=== PATIENT | female | born 1950 | race Caucasian/White ===

== ENCOUNTER 2020-10-05 18:05 | Outpatient (REF) | payer MEDICARE, OTHER, SELFPAY | END 2020-10-05 18:06 | disposition home or self-care (01) | LOC: HO.LNP 18:05 | PROVIDERS: Visit Provider Family Medicine | DX: R30.0 Dysuria (principal) | CPT/HCPCS: 87086 ==

== ENCOUNTER 2021-01-16 12:56 | Outpatient (REF) | payer MEDICARE, OTHER, SELFPAY ==
--- NOTE | ~2021-01-16 | MM_ITS ---
EXAMINATION: MM SCREENING DIGITAL BREAST TOMOSYNTHESIS, BILATERAL CLINICAL INFORMATION: Screening. Asymptomatic. Left nipple inversion most of life. The lifetime risk of breast cancer based on the Tyrer-Cuzick Model is 9%. COMPARISON: Mammography: 01/15/2019, 01/02/2018, 12/10/2016 TECHNIQUE: Digital breast tomosynthesis is performed in both the craniocaudal and mediolateral oblique views along with computer-aided detection (CAD). Synthesized 2D images are generated from the tomosynthesis. Additional right MLO view is provided. FINDINGS: There are scattered areas of fibroglandular density (ACR BI-RADS breast composition Category b). There are no significant masses, abnormal calcifications, or other abnormalities. Small stable nodular density again seen mid medial left breast on CC view. No developing density. No significant changes from prior exams. MM/MM tomosynthesis screening BI IMPRESSION: No mammographic evidence of malignancy. ASSESSMENT: BI-RADS 2: Benign RECOMMENDATION: Routine annual mammography screening. This patient's information was entered into a reminder system with a target due date for their next mammogram.
== END 2021-01-16 12:57 | disposition home or self-care (01) ==
LOC: HO.MAMMO 12:56
PROVIDERS: PCP Internal Medicine; Visit Provider Internal Medicine
DX: Z12.31 Encounter for screening mammogram for malignant neoplasm of breast (principal)
CPT/HCPCS: 77063; 77067

== ENCOUNTER 2021-11-02 07:09 | Outpatient (REF) | payer MEDICARE, OTHER, SELFPAY ==
[2021-11-02 07:24] LABS: MANUAL DIFF FLAG NO
[2021-11-02 08:33] LABS: Basophils Absolute Auto 0.1 X10*3/uL (0.0-0.2); Basophils Percent Auto 0.7 % (0-2); Eosinophils Absolute Auto 0.2 X10*3/uL (0.0-0.4); Eosinophils Percent Auto 2.9 % (0-4); Hematocrit 46.3 % (37.0-47.0); Hemoglobin 15.3 g/dl (12.0-16.0); Imm Gran Abs Auto 0.02 X10*3/uL (0.00-0.03); Imm Gran Pct Auto 0.3 % (0.0-0.4); Lymphocytes Absolute Auto 2.3 X10*3/uL (1.2-4.9); Lymphocytes Percent Auto 32.2 % (20-40); Mean Corpuscular Hemoglobin 27.8 pg (27.0-33.0); Mean Corpuscular Volume 84.2 fL (80.0-98.0); Mean Platelet Volume 9.2 fL (9.4-12.3); Monocytes Absolute Auto 0.6 X10*3/uL (0.1-1.2); Monocytes Percent Auto 8.7 % (2-11); Neutrophils Absolute Auto 3.9 x10*3/uL (2.0-8.3); Neutrophils Percent Auto 55.2 % (45-73); Platelet Count 253 X10*3/uL (160-400); Red Cell Distribution Width 12.8 % (11.0-16.0)
[2021-11-02 08:38] LABS: Estimated Average Glucose 128 mg/dL; Hemoglobin A1c % 6.1 %
[2021-11-02 08:51] LABS: Alanine Aminotransferase 29 U/L (0-31); Albumin Level 4.6 g/dL (3.5-5.0); Alkaline Phosphatase 75 U/L (39-117); Anion Gap 15 (12-20); Aspartate Amino Transferase 23 U/L (5-31); Bilirubin Total 0.6 mg/dL (0.0-1.0); Blood Urea Nitrogen 29 mg/dL (9-16); Calcium 10.1 mg/dL (8.4-10.2); Carbon Dioxide 26 mmol/L (22-29); Chloride 101 mmol/L (96-108); Cholesterol 164 mg/dL; Creatinine Urine 118.42 mg/dL; Estimated Glomerular Filt Rate 51; Glucose Random 100 mg/dL (60-115); HDL Cholesterol 48 mg/dL; LDL Cholesterol Calculated 84 mg/dl; Microalbum/Creatinine Ratio Ur 12.6 ug/mg cr; Potassium 4.1 mmol/L (3.3-5.1); Sodium 138 mmol/L (135-145); Total Protein 7.4 g/dL (6.5-8.0); Triglycerides 162 mg/dL
[2021-11-02 09:14] LABS: Free T4 (Free Thyroxine) 1.03 ng/dL (0.71-1.85); Thyroid Stimulating Hormone 1.94 uIU/mL (0.32-4.0); Vitamin D 25-OH Total 43.1 ng/mL (>30)
[2021-11-02 09:25] LABS: Folate 17.3 ng/mL (> or = 4.0); Vitamin B12 866 pg/mL (200-900)
== END 2021-11-02 07:10 | disposition home or self-care (01) ==
LOC: HO.LAB 07:09
PROVIDERS: PCP Internal Medicine; Visit Provider Internal Medicine
DX: E11.65 Type 2 diabetes mellitus with hyperglycemia (principal); E78.00 Pure hypercholesterolemia, unspecified; I10 Essential (primary) hypertension
CPT/HCPCS: 36415; 80053; 80061; 82043; 82306; 82607; 82746; 83036; 84439; 84443; 85025

== ENCOUNTER 2021-11-15 08:47 | Outpatient (REF) | payer MEDICARE, OTHER, SELFPAY ==
--- NOTE | ~2021-11-15 | MM_ITS ---
EXAMINATION: BONE DENSITOMETRY CLINICAL INDICATION: Other specified disorders of bone density and structure. COMPARISON: Previous BD dated 10/31/2017 and baseline BD dated 04/01/2007. TECHNIQUE: Using a [employer] DXA System (software version: 13.1) manufactured by [employer], dual-energy x-ray absorptiometry was performed of the lumbar spine and left hip. The images are of good technical quality. Summary results are attached. FINDINGS: AP SPINE L1-L4: Current: BMD 1.044 g/cm2, Z-score 0.3, T-score -1.1, osteopenia, 3.3% decrease from previous, 5.8% decrease from baseline (<5% change is not significant). Prior: BMD 1.080 g/cm2. Baseline: BMD 1.108 g/cm2. LEFT FEMUR, NECK: Current: BMD 0.694 g/cm2, Z-score -1.0, T-score -2.5, osteoporosis. Prior: BMD 0.773 g/cm2. Baseline: BMD 0.764 g/cm2. LEFT FEMUR, TOTAL: Current: BMD 0.952 g/cm2, Z-score 0.8, T-score -0.4, normal, 2.3% decrease from previous, 11.3% decrease from baseline (<5% change is not significant). Prior: BMD 0.974 g/cm2. Baseline: BMD 1.073 g/cm2. IDENTIFIED RISK FACTORS: Menopause. HISTORY OF FRACTURE: None listed. MEDICATIONS: Calcium, vitamin D. MM/XR DEXA axial skeleton IMPRESSION: 1. DIAGNOSIS: Osteoporosis based on the lowest T-score value of -2.5 in the femoral neck applying World Health Organization criteria. 2. 10-YEAR FRACTURE RISK PREDICTION, FRAX: According to the guidelines, FRAX calculation should only be performed on patients in the osteopenia bone density category. 3. Treatment Recommendations: NOF guidelines recommend consideration for treatment in postmenopausal women and men age 50 and older presenting with the following: -A hip or vertebral (clinical or morphometric) fracture. -T-score less than or equal to -2.5 at the femoral neck or spine after appropriate evaluation to exclude secondary causes. -Low bone mass at the hip or spine and a 10-year fracture probability by FRAX of greater than or equal to 3% for hip fracture or greater than or equal to 20% for major osteoporotic fracture based on the [place] adapted WHO algorithm. 4. Other Recommendations: All treatment decisions require clinical judgment and consideration of individual patient factors, including patient preferences, comorbidities, previous drug use, risk factors not captured in the FRAX model (e.g. frailty, falls, vitamin D deficiency, increased bone turnover, interval significant decline in bone density) and possible under or overestimation of fracture risk by FRAX. Additional medical evaluation for secondary cause of low bone mineral density may be appropriate. FUTURE SCAN RECOMMENDATION: People with diagnosed cases of osteoporosis or at high risk for fracture should have regular bone mineral density tests. For patients eligible for Medicare, routine testing is allowed once every 2 years. The testing frequency can be increased to one year for patients who have rapidly progressing disease, those who are receiving or discontinuing medical therapy to restore bone mass, or have additional risk factors.
== END 2021-11-15 08:48 | disposition home or self-care (01) ==
LOC: HO.MAMMO 08:47
PROVIDERS: Visit Provider Internal Medicine
DX: Z13.820 Encounter for screening for osteoporosis (principal); M85.80 Other specified disorders of bone density and structure, unspecified site; M81.0 Age-related osteoporosis without current pathological fracture; Z78.0 Asymptomatic menopausal state; Z79.899 Other long term (current) drug therapy
CPT/HCPCS: 77080

== ENCOUNTER 2022-02-05 13:30 | Outpatient (REF) | payer MEDICARE, OTHER, SELFPAY ==
--- NOTE | ~2022-02-05 | MM_ITS ---
EXAMINATION: MM SCREENING DIGITAL BREAST TOMOSYNTHESIS, BILATERAL CLINICAL INFORMATION: Screening. Asymptomatic. The lifetime risk of breast cancer based on the Tyrer-Cuzick Model is 4%. COMPARISON: Mammography: 09/15/2021, 01/15/2019, 01/02/2018 TECHNIQUE: Digital breast tomosynthesis is performed in both the craniocaudal and mediolateral oblique views along with computer-aided detection (CAD). Synthesized 2D images are generated from the tomosynthesis. Additional right CC view is provided. FINDINGS: There are scattered areas of fibroglandular density (ACR BI-RADS breast composition Category b). Background stromal and fibroglandular densities are stable. No developing density or architectural abnormality. There are no significant masses, abnormal calcifications, or other abnormalities. The axilla and skin contours are unremarkable. MM/MM tomosynthesis screening BI IMPRESSION: No mammographic evidence of malignancy. ASSESSMENT: BI-RADS 1: Negative RECOMMENDATION: Routine annual mammography screening. This patient's information was entered into a reminder system with a target due date for their next mammogram.
== END 2022-02-05 13:31 | disposition home or self-care (01) ==
LOC: HO.MAMMO 13:30
PROVIDERS: PCP Internal Medicine; Visit Provider Internal Medicine
DX: Z12.31 Encounter for screening mammogram for malignant neoplasm of breast (principal)
CPT/HCPCS: 77063; 77067

== ENCOUNTER 2022-04-04 10:12 | Emergency (ER) | payer MEDICARE, OTHER, SELFPAY ==
--- NOTE | 2022-04-04 | ECG_ITS ---
Test Reason : rhythm change Blood Pressure : / mmHG Vent. Rate : 093 BPM Atrial Rate : 093 BPM P-R Int : 134 ms QRS Dur : 074 ms QT Int : 338 ms P-R-T Axes : 055 -05 033 degrees QTc Int : 420 ms Normal sinus rhythm Inferior infarct (cited on or before 20-OCT-2015) Cannot rule out Anterior infarct (cited on or before 20-OCT-2015) Abnormal ECG When compared with ECG of 04-APR-2022 11:24, Vent. rate has decreased BY [address] no longer depressed in Lateral leads Nonspecific T wave abnormality, improved in Inferior leads Nonspecific T wave abnormality no longer evident in Anterolateral leads Referred By: Josey Benz Electronically Signed By:Josh Campos
--- NOTE | ~2022-04-04 | XR_ITS ---
EXAMINATION: XR KNEE, RIGHT CLINICAL INFORMATION: Right knee pain and swelling. COMPARISON: None TECHNIQUE: Four views of the right knee. FINDINGS: The patient is status post right knee arthroplasty showing good anatomic alignment with no evidence for hardware malfunction. There is no acute fracture. There is a trace suprapatellar joint effusion. The soft tissues are unremarkable. XR/XR knee RT 4V IMPRESSION: 1. No hardware abnormality. No acute fracture. 2. Trace suprapatellar joint effusion.
--- NOTE | ~2022-04-04 | XR_ITS ---
EXAMINATION: XR CHEST CLINICAL INFORMATION: Lower O2 sats. COMPARISON: 08/05/2018 rib and chest radiographs. TECHNIQUE: Frontal view of the chest was obtained. FINDINGS: No significant abnormality is noted involving the heart, lungs, mediastinum, bony thorax or soft tissues. XR/XR chest 1V IMPRESSION: No acute cardiopulmonary process.
--- NOTE | ~2022-04-04 | US_ITS ---
EXAMINATION: RIGHT LOWER EXTREMITY DEEP VENOUS ULTRASOUND CLINICAL INFORMATION: Right lower extremity pain and swelling. COMPARISON: None. TECHNIQUE: Duplex Doppler imaging with compression maneuvers were performed of the right lower extremity deep venous system. FINDINGS: The visualized common femoral, femoral and popliteal veins demonstrate normal compressibility and color flow without evidence of venous thrombosis. Visualized portions of the calf veins demonstrate normal color fill-in suggesting patency. There is no evidence of a Dawson's cyst although a small knee effusion is suspected. US/US venous duplex LE RT IMPRESSION: No evidence of deep venous thrombosis involving the right lower extremity.
[2022-04-04 10:23] VITALS: BP 142/74; BP 155/84; PULSE 143; PULSE 145; RESP 16; TEMP 36.7; O2SAT 97; O2SAT 98; BMI 30.7
--- NOTE | 2022-04-04 10:32 | ED_ITS ---
HPI - Extremity Injury (Lower) General Chief Complaint: Extremity Injury, Lower Stated Complaint: R KNEE PAIN S/P [facility] FALL Time Seen by Provider: 04/04/22 10:32 Source: patient Mode of arrival: EMS Limitations: no limitations History of Present Illness complaint: knee injury Onset (ago): day(s) (this AM ) Injury: Right: knee Type of Injury: other (overuse yesterday up and down a ladder, hit peralta on stairs yesterday no pain but woke up with pain in middle of night fell again this AM) Place: home and street/outdoors Severity: severe Relieving factors: immobilization Exacerbating factors: movement and palpation Context: direct blow and other (overuse up and down stairs) Associated symptoms: swelling Other symptoms: none Related Data Home Medications Medication Instructions Recorded Confirmed blood sugar diagnostic #10 ea 10/05/20 02/12/22 aspirin 81 mg tablet,delayed 81 mg PO DAILY 10/10/20 02/12/22 release (Adult Aspirin Regimen) Previous Rx's Medication Instructions Recorded simvastatin 20 mg tablet 20 mg PO BEDTIME 90 Days #90 tab 04/07/21 amlodipine 5 mg tablet 5 mg PO DAILY 90 Days #90 tab 07/28/21 hydrochlorothiazide 25 mg tablet 25 mg PO DAILY 90 Days #90 tab 07/28/21 glimepiride 4 mg tablet 4 mg PO DAILY 90 Days #90 tab 08/18/21 omeprazole 20 mg capsule,delayed 20 mg PO DAILY #90 cap 09/26/21 release blood sugar diagnostic (FreeStyle #200 ea 10/13/21 Lite Strips) metformin 500 mg tablet 1,000 mg PO BID 90 Days #360 tab 10/30/21 amoxicillin 875 mg tablet 875 mg PO Q12H 7 Days #14 tab 11/13/21 ramipril 10 mg capsule 10 mg PO DAILY #90 cap 02/28/22 dulaglutide 0.75 mg/0.5 mL 0.75 mg (0.5 mL) SUBCUT QWEEK 90 03/12/22 subcutaneous pen injector Days #13 syringe empagliflozin 10 mg tablet 10 mg PO DAILY #90 tab 03/16/22 (Jardiance) meloxicam 15 mg tablet 15 mg PO DAILY #90 tab 03/16/22 Allergies Allergy/AdvReac Type Severity Reaction Status Date / Time penicillin V Allergy Unknown Pt was Verified 02/12/22 13:41 told she was allergic as a child. Review of Systems Review of Systems: Constitutional : No Fever, No Chills ENT/Mouth : No Ear Pain, No Hoarseness, No sore throat Eyes: No Eye Pain, No Swelling, No Redness, No Foreign Body Cardiovascular : No Chest Pain, No SOB Respiratory : No Cough, No Dyspnea Gastrointestinal : No Nausea, No Vomiting, No Diarrhea, No abdominal Pain Genitourinary : No Dysuria, No Hematuria Musculoskeletal : positive joint pain, No Myalgias, pos Joint Swelling Skin : No Skin lacerations, No rash Neuro : No Weakness, No Numbness, No Loss of Consciousness, No Dizziness, No Headache Psych : No Anxiety/Panic, No Depression Heme/Lymph: no easy bruising, no Lymphadenopathy Endocrine : No Polyuria, No Polydipsia All other systems reviewed and are negative [facility] Past Medical History Attestation statement: The following information was validated with the patient. Medical History Diverticulitis Fatty liver GERD (gastroesophageal reflux disease) Hypercholesterolemia Hypertension Insomnia Obesity (BMI 30-39.9) Osteoarthritis, knee Pulmonary nodule Type 2 diabetes mellitus with hyperglycemia Vitamin D deficiency Surgical History History of section History of knee replacement procedure of right knee Family History Family History (Updated 10/07/20 @ 09:24 by Doretha Arroyo [facility]) Father Hypertension Mother Ovarian cancer Sister Breast cancer Social History Social History Housing: Apartment Alcohol intake: never Patient Tobacco Use Status: Never used Tobacco e-Cigarette/Vaping Use: Never Used Second Hand Smoke Exposure: No Use of substances other than those prescribed or required for medical reasons: No Advance Directives: No Advance Directives Information Provided: No Current occupational status: retired Physical Exam Vital Signs: Vital Signs: Last Vital Signs Temp 98.9 F 04/04/22 12:20 Pulse 113 H 04/04/22 14:00 Resp 18 04/04/22 14:00 BP 106/65 04/04/22 14:00 Pulse Ox 94 04/04/22 14:00 BMI result Body Mass Index 30.7 Appearance: Alert. Oriented X3. No acute distress. Eyes: Pupils equal, round and reactive to light. ENT: Pharynx normal. Neck: Normal inspection. Neck supple. CVS: tachycardicl heart rate and rhythm. Pulses normal. Respiratory: No respiratory distress. Breath sounds normal. Abdomen: Soft and nontender. Skin: Skin warm and dry. Normal skin color. Normal skin turgor. Extremities: No lower extremity edema. R knee moderate effusion ttp along joint line distal NV intact no erythema no warmth Neuro: Oriented X 3. No motor deficit. No sensory deficit. Course Course Course Narrative: HR elevated will obtain labs, EKG, hydrate not on bblockers at baseline, cannot feel the HR no CP/SOB tachycardia 2.5 lopressor ordered IV meds HR down to 97 PO metoprolol ordered HR back up to 120s has WBC count but neg lactic, neg procalcitonin - knee not consistent with sept ic joint not red not hot UA ordered HR down small effusion no source of infection at this time, no fevers, neg lactic acid no signs of septic joint recheck of knee it is not red hot or warm to the touch discussed with orthopedics can see in office in the AM - [place], hold antibiotics can start a dose of prednisone patient does not have ride to the office will keep in ED overnight for obs Patient placed in physician observation at 324pm. The indication for observation is that the patient needs more time to see if their knee pain improves or they will need to be admitted. At this time the patient is well developed well nourished, lungs clear, CV tachy but lower than arrival, abd nontender, neuro is intact. 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 She went home and hit her R peralta on the stairs but had no pain at that time and did hit knee as well. She woke up in the middle of the night with intense pain in R knee. She fell again this morning due to left leg giving out - no head or neck injury. She has moderate effusion of the knee - suspect overuse and swelling. Xrays, PO pain control, francine wrap ordered. Dispo per results and findings. Lab Data Result diagrams: 04/04/22 11:37 04/04/22 11:37 Labs: Lab Results 04/04/22 04/04/22 04/04/22 Range/Units 11:37 11:37 11:37 WBC 14.4 H (4.8-10.8) X10*3/uL RBC 5.15 (4.20-5.50) X10*6/uL Hgb 14.5 (12.0-16.0) g/dl Hct 43.6 (37.0-47.0) % MCV 84.7 (80.0-98.0) fL MCH 28.2 (27.0-33.0) pg MCHC 33.3 (31.0-35.0) g/dl RDW 13.1 (11.0-16.0) % Plt Count 205 (160-400) X10*3/uL MPV 9.0 L (9.4-12.3) fL Immature Gran % (Auto) 0.4 (0.0-0.4) % Neut % (Auto) 89.1 H (45-73) % Lymph % (Auto) 5.2 L (20-40) % Emmet % (Auto) 5.0 (2-11) % Eos % (Auto) 0.1 (0-4) % Baso % (Auto) 0.2 (0-2) % Lymph # (Auto) 0.8 L (1.2-4.9) X10*3/uL Emm[place] # (Auto) 0.7 (0.1-1.2) X10*3/uL Eos # (Auto) 0.0 (0.0-0.4) X10*3/uL Baso # (Auto) 0.0 (0.0-0.2) X10*3/uL Abs Immat Gran (auto) 0.06 H (0.00-0.03) X10*3/uL Absolute Neuts (auto) 12.8 H (2.0-8.3) x10*3/uL Absolute Nucleated RBC 0.000 (0.0-0.012) X10*3/uL Nucleated RBC % (auto) 0.0 (0.0-0.2) /100WBC D-Dimer High Sensitivty < 150 NG/ML Sodium 138 (135-145) mmol/L Potassium 3.9 (3.3-5.1) mmol/L Chloride 103 (96-108) mmol/L Carbon Dioxide 23 (22-29) mmol/L Anion Gap 16 (12-20) BUN 16 (9-16) mg/dL Creatinine 0.84 (0.5-1.4) mg/dL Estim Creat Clear Calc 55.6 Estimated GFR > 60 Random Glucose 183 H (60-115) mg/dL Lactic Acid (0.5-2.0) mmol/L Calcium 9.2 D (8.4-10.2) mg/dL Magnesium 1.7 (1.6-2.6) mg/dL Total Bilirubin 0.9 (0.0-1.0) mg/dL Direct Bilirubin 0.3 (0.0-0.5) mg/dL AST 18 (5-31) U/L ALT 21 (0-31) U/L Alkaline Phosphatase 67 (39-117) U/L Troponin I High Sens (<3.5-17.0) ng/L B-Natriuretic Peptide Total Protein 6.9 (6.5-8.0) g/dL Albumin 4.2 (3.5-5.0) g/dL Lipase 41 (8-78) U/L Procalcitonin ng/mL TSH 0.42 (0.32-4.0) uIU/mL Urine Color Urine Appearance Urine pH (5.0-8.0) Ur Specific [place] (1.005-1.025) Urine Protein (NEG-TRACE) MG/DL Urine Glucose (UA) (NEG) MG/DL Urine Ketones (NEG) MG/DL Urine Blood (NEG) Urine Nitrite (NEG) Ur Leukocyte Esterase (NEG) Urine RBC (0) /HPF Urine WBC (0-4) /HPF Ur Squamous Epith Cells /LPF Ur Renal Epithelial Cell /LPF Urine Bacteria /LPF Ur Oval Fat Bodies (NONE) COVID-19 (RON) (Negative) COVID-19 Clin Com 04/04/22 04/04/22 04/04/22 Range/Units 11:37 11:37 11:37 WBC (4.8-10.8) X10*3/uL RBC (4.20-5.50) X10*6/uL Hgb (12.0-16.0) g/dl Hct (37.0-47.0) % MCV (80.0-98.0) fL MCH (27.0-33.0) pg MCHC (31.0-35.0) g/dl RDW (11.0-16.0) % Plt Count (160-400) X10*3/uL MPV (9.4-12.3) fL Immature Gran % (Auto) (0.0-0.4) % Neut % (Auto) (45-73) % Lymph % (Auto) (20-40) % Emmet % (Auto) (2-11) % Eos % (Auto) (0-4) % Baso % (Auto) (0-2) % Lymph # (Auto) (1.2-4.9) X10*3/uL [place] # (Auto) (0.1-1.2) X10*3/uL Eos # (Auto) (0.0-0.4) X10*3/uL Baso # (Auto) (0.0-0.2) X10*3/uL Abs Immat Gran (auto) (0.00-0.03) X10*3/uL Absolute Neuts (auto) (2.0-8.3) x10*3/uL Absolute Nucleated RBC (0.0-0.012) X10*3/uL Nucleated RBC % (auto) (0.0-0.2) /100WBC D-Dimer High Sensitivty NG/ML Sodium (135-145) mmol/L Potassium (3.3-5.1) mmol/L Chloride (96-108) mmol/L Carbon Dioxide (22-29) mmol/L Anion Gap (12-20) BUN (9-16) mg/dL Creatinine (0.5-1.4) mg/dL Estim Creat Clear Calc Estimated GFR Random Glucose (60-115) mg/dL Lactic Acid 1.6 (0.5-2.0) mmol/L Calcium (8.4-10.2) mg/dL Magnesium (1.6-2.6) mg/dL Total Bilirubin (0.0-1.0) mg/dL Direct Bilirubin (0.0-0.5) mg/dL AST (5-31) U/L ALT (0-31) U/L Alkaline Phosphatase (39-117) U/L Troponin I High Sens < 3.5 (<3.5-17.0) ng/L B-Natriuretic Peptide Cancelled 25 Total Protein (6.5-8.0) g/dL Albumin (3.5-5.0) g/dL Lipase (8-78) U/L Procalcitonin ng/mL TSH (0.32-4.0) uIU/mL Urine Color Urine Appearance Urine pH (5.0-8.0) Ur Specific [place] (1.005-1.025) Urine Protein (NEG-TRACE) MG/DL Urine Glucose (UA) (NEG) MG/DL Urine Ketones (NEG) MG/DL Urine Blood (NEG) Urine Nitrite (NEG) Ur Leukocyte Esterase (NEG) Urine RBC (0) /HPF Urine WBC (0-4) /HPF Ur Squamous Epith Cells /LPF Ur Renal Epithelial Cell /LPF Urine Bacteria /LPF Ur Oval Fat Bodies (NONE) COVID-19 (RON) (Negative) COVID-19 Clin Com 04/04/22 04/04/22 04/04/22 Range/Units 11:37 13:29 13:33 WBC (4.8-10.8) X10*3/uL RBC (4.20-5.50) X10*6/uL Hgb (12.0-16.0) g/dl Hct (37.0-47.0) % MCV (80.0-98.0) fL MCH (27.0-33.0) pg MCHC (31.0-35.0) g/dl RDW (11.0-16.0) % Plt Count (160-400) X10*3/uL MPV (9.4-12.3) fL Immature Gran % (Auto) (0.0-0.4) % Neut % (Auto) (45-73) % Lymph % (Auto) (20-40) % Emmet % (Auto) (2-11) % Eos % (Auto) (0-4) % Baso % (Auto) (0-2) % Lymph # (Auto) (1.2-4.9) X10*3/uL [place] # (Auto) (0.1-1.2) X10*3/uL Eos # (Auto) (0.0-0.4) X10*3/uL Baso # (Auto) (0.0-0.2) X10*3/uL Abs Immat Gran (auto) (0.00-0.03) X10*3/uL Absolute Neuts (auto) (2.0-8.3) x10*3/uL Absolute Nucleated RBC (0.0-0.012) X10*3/uL Nucleated RBC % (auto) (0.0-0.2) /100WBC D-Dimer High Sensitivty NG/ML Sodium (135-145) mmol/L Potassium (3.3-5.1) mmol/L Chloride (96-108) mmol/L Carbon Dioxide (22-29) mmol/L Anion Gap (12-20) BUN (9-16) mg/dL Creatinine (0.5-1.4) mg/dL Estim Creat Clear Calc Estimated GFR Random Glucose (60-115) mg/dL Lactic Acid (0.5-2.0) mmol/L Calcium (8.4-10.2) mg/dL Magnesium (1.6-2.6) mg/dL Total Bilirubin (0.0-1.0) mg/dL Direct Bilirubin (0.0-0.5) mg/dL AST (5-31) U/L ALT (0-31) U/L Alkaline Phosphatase (39-117) U/L Troponin I High Sens (<3.5-17.0) ng/L B-Natriuretic Peptide Total Protein (6.5-8.0) g/dL Albumin (3.5-5.0) g/dL Lipase (8-78) U/L Procalcitonin 0.08 ng/mL TSH Cancelled (0.32-4.0) uIU/mL Urine Color Urine Appearance Urine pH (5.0-8.0) Ur Specific [place] (1.005-1.025) Urine Protein (NEG-TRACE) MG/DL Urine Glucose (UA) (NEG) MG/DL Urine Ketones (NEG) MG/DL Urine Blood (NEG) Urine Nitrite (NEG) Ur Leukocyte Esterase (NEG) Urine RBC (0) /HPF Urine WBC (0-4) /HPF Ur Squamous Epith Cells /LPF Ur Renal Epithelial Cell /LPF Urine Bacteria /LPF Ur Oval Fat Bodies (NONE) COVID-19 (RON) Negative (Negative) COVID-19 Clin Com See Note 04/04/22 Range/Units 14:28 WBC (4.8-10.8) X10*3/uL RBC (4.20-5.50) X10*6/uL Hgb (12.0-16.0) g/dl Hct (37.0-47.0) % MCV (80.0-98.0) fL MCH (27.0-33.0) pg MCHC (31.0-35.0) g/dl RDW (11.0-16.0) % Plt Count (160-400) X10*3/uL MPV (9.4-12.3) fL Immature Gran % (Auto) (0.0-0.4) % Neut % (Auto) (45-73) % Lymph % (Auto) (20-40) % Emmet % (Auto) (2-11) % Eos % (Auto) (0-4) % Baso % (Auto) (0-2) % Lymph # (Auto) (1.2-4.9) X10*3/uL [place] # (Auto) (0.1-1.2) X10*3/uL Eos # (Auto) (0.0-0.4) X10*3/uL Baso # (Auto) (0.0-0.2) X10*3/uL Abs Immat Gran (auto) (0.00-0.03) X10*3/uL Absolute Neuts (auto) (2.0-8.3) x10*3/uL Absolute Nucleated RBC (0.0-0.012) X10*3/uL Nucleated RBC % (auto) (0.0-0.2) /100WBC D-Dimer High Sensitivty NG/ML Sodium (135-145) mmol/L Potassium (3.3-5.1) mmol/L Chloride (96-108) mmol/L Carbon Dioxide (22-29) mmol/L Anion Gap (12-20) BUN (9-16) mg/dL Creatinine (0.5-1.4) mg/dL Estim Creat Clear Calc Estimated GFR Random Glucose (60-115) mg/dL Lactic Acid (0.5-2.0) mmol/L Calcium (8.4-10.2) mg/dL Magnesium (1.6-2.6) mg/dL Total Bilirubin (0.0-1.0) mg/dL Direct Bilirubin (0.0-0.5) mg/dL AST (5-31) U/L ALT (0-31) U/L Alkaline Phosphatase (39-117) U/L Troponin I High Sens (<3.5-17.0) ng/L B-Natriuretic Peptide Total Protein (6.5-8.0) g/dL Albumin (3.5-5.0) g/dL Lipase (8-78) U/L Procalcitonin ng/mL TSH (0.32-4.0) uIU/mL Urine Color YELLOW Urine Appearance CLEAR Urine pH 6.0 (5.0-8.0) Ur Specific [place] 1.010 (1.005-1.025) Urine Protein NEG (NEG-TRACE) MG/DL Urine Glucose (UA) >=1000 H (NEG) MG/DL Urine Ketones 15 (NEG) MG/DL Urine Blood NEG (NEG) Urine Nitrite NEG (NEG) Ur Leukocyte Esterase NEG (NEG) Urine RBC 0 (0) /HPF Urine WBC 0-2 (0-4) /HPF Ur Squamous Epith Cells 1+ /LPF Ur Renal Epithelial Cell TRACE /LPF Urine Bacteria NONE /LPF Ur Oval Fat Bodies NOTED (NONE) COVID-19 (RON) (Negative) COVID-19 Clin Com ECG Data Attestation: I personally reviewed and interpreted this ECG as follows: ECG interpretation date: 04/04/22 ECG interpretation time: 11:42 Interpretation: Rate: 153 Rhythm: regular tachycardia [place]: left Normal QRS complex. ST T wave : no [place] qTC: normal prior studies: The study has been interpreted contemporaneously by me. EKG #2 Rate: 93 Rhythm: NSR [place]: left Normal P waves. Normal JOANNE. Normal QRS complex. ST T wave : normal no [place] qTC: normal prior studies: no acute ischemia The study has been interpreted contemporaneously by me. . Procedures Orthopedic Splinting/Casting Injury #1: Side: right Lower Extremity Injury Location: knee Lower Extremity Immobilizer: knee immobilizer Additional Comments: NV intact post splint Discharge Plan Discharge Clinical Impression: Effusion of knee joint right, Sinus tachycardia Patient Disposition: Still a Patient Prescriptions: No Action simvastatin 20 mg tablet 20 mg PO BEDTIME 90 Days Qty: 90 2RF hydrochlorothiazide 25 mg tablet 25 mg PO DAILY 90 Days Qty: 90 2RF amlodipine 5 mg tablet 5 mg PO DAILY 90 Days Qty: 90 2RF glimepiride 4 mg tablet 4 mg PO DAILY 90 Days Qty: 90 2RF omeprazole 20 mg capsule,delayed release(DR/EC) 20 mg PO DAILY Qty: 90 3RF metformin 500 mg tablet 1,000 mg PO BID 90 Days Qty: 360 1RF ramipril 10 mg capsule 10 mg PO DAILY Qty: 90 3RF dulaglutide 0.75 mg/0.5 mL pen injector 0.75 mg subcut QWEEK 90 Days Qty: 13 3RF Jardiance 10 mg tablet 10 mg PO DAILY Qty: 90 3RF meloxicam 15 mg tablet 15 mg PO DAILY Qty: 90 3RF aspirin [Adult Aspirin Regimen] 81 mg tablet,delayed release (DR/EC) 81 mg PO DAILY 0RF (DME) FreeStyle Lite Strips Strip See Rx Instructions strip .ROUTE .MEDSUPPLY Qty: 10 0RF Rx Instructions: As directed (DME) FreeStyle Lite Strips Strip See Rx Instructions .ROUTE .MEDSUPPLY Qty: 200 3RF Rx Instructions: As directed check the BS BID amoxicillin 875 mg tablet 875 mg PO Q12H 7 Days Qty: 14 0RF
[2022-04-04] MEDS: Acetaminophen 325 MG TABLET 650 MG PO (10:58)
[2022-04-04] MEDS: Ondansetron ODT 4 MG TAB.RAPDIS TRANSLINGU (10:58)
[2022-04-04] MEDS: oxyCODONE HCl Immed Release 5 MG TABLET PO (10:59)
--- NOTE | 2022-04-04 11:26 | ECG_ITS ---
Test Reason : fall Blood Pressure : / mmHG Vent. Rate : 153 BPM Atrial Rate : 153 BPM P-R Int : 130 ms QRS Dur : 072 ms QT Int : 258 ms P-R-T Axes : 020 -11 132 degrees QTc Int : 411 ms Sinus tachycardia Low voltage QRS Inferior infarct (cited on or before 20-OCT-2015) Cannot rule out Anterior infarct , age undetermined Abnormal ECG When compared with ECG of 28-NOV-2015 07:56, Vent. rate has increased BY [address] now depressed in Lateral leads Nonspecific T wave abnormality, worse in Inferior leads Nonspecific T wave abnormality, worse in Anterolateral leads Referred By: Josey Benz Electronically Signed By:Josh Campos
[2022-04-04 11:46] LABS: MANUAL DIFF FLAG NO
[2022-04-04] MEDS: 0.9 % Sodium Chloride 500 ML IV (11:48)
[2022-04-04] MEDS: Metoprolol Tartrate 5 MG/5 ML VIAL 2.5 MG IVPUSH (11:48)
[2022-04-04 11:56] LABS: Basophils Percent Auto 0.2 % (0-2); Eosinophils Percent Auto 0.1 % (0-4); Hematocrit 43.6 % (37.0-47.0); Hemoglobin 14.5 g/dl (12.0-16.0); Imm Gran Abs Auto 0.06 X10*3/uL (0.00-0.03); Imm Gran Pct Auto 0.4 % (0.0-0.4); Lymphocytes Absolute Auto 0.8 X10*3/uL (1.2-4.9); Lymphocytes Percent Auto 5.2 % (20-40); Mean Corpuscular HGB Conc 33.3 g/dl (31.0-35.0); Mean Corpuscular Hemoglobin 28.2 pg (27.0-33.0); Mean Corpuscular Volume 84.7 fL (80.0-98.0); Monocytes Absolute Auto 0.7 X10*3/uL (0.1-1.2); Neutrophils Absolute Auto 12.8 x10*3/uL (2.0-8.3); Neutrophils Percent Auto 89.1 % (45-73); Platelet Count 205 X10*3/uL (160-400); Red Blood Count 5.15 X10*6/uL (4.20-5.50); Red Cell Distribution Width 13.1 % (11.0-16.0); White Blood Count 14.4 X10*3/uL (4.8-10.8)
[2022-04-04 11:57] LABS: Lactic Acid 1.6 mmol/L (0.5-2.0)
[2022-04-04 12:03] LABS: Alanine Aminotransferase 21 U/L (0-31); Albumin Level 4.2 g/dL (3.5-5.0); Alkaline Phosphatase 67 U/L (39-117); Anion Gap 16 (12-20); Aspartate Amino Transferase 18 U/L (5-31); Bilirubin Direct 0.3 mg/dL (0.0-0.5); Bilirubin Total 0.9 mg/dL (0.0-1.0); Blood Urea Nitrogen 16 mg/dL (9-16); Calcium 9.2 mg/dL (8.4-10.2); Carbon Dioxide 23 mmol/L (22-29); Chloride 103 mmol/L (96-108); Creatinine Clr Calc Pharmacy 55.6; Estimated Glomerular Filt Rate > 60; Glucose Random 183 mg/dL (60-115); Lipase 41 U/L (8-78); Magnesium 1.7 mg/dL (1.6-2.6); Potassium 3.9 mmol/L (3.3-5.1); Sodium 138 mmol/L (135-145); Total Protein 6.9 g/dL (6.5-8.0)
[2022-04-04 12:06] LABS: D Dimer High Sensitivity < 150 NG/ML
[2022-04-04 12:11] LABS: B Type Natriuretic Peptide 25 pg/mL (<100); Troponin-I High Sensitivity < 3.5 ng/L (<3.5-17.0)
[2022-04-04 12:20] VITALS: BP 114/69; PULSE 128; RESP 18; TEMP 37.2; O2SAT 93
[2022-04-04 12:25] LABS: TSH reflex Free T4 0.42 uIU/mL (0.32-4.0)
[2022-04-04] MEDS: Metoprolol Tartrate 25 MG TABLET PO (12:29)
[2022-04-04 13:59] LABS: COVID-19 Test Negative (Negative); IDNOW Serial# 16C4AD1C
[2022-04-04 14:00] VITALS: BP 106/65; PULSE 113; RESP 18; O2SAT 94
[2022-04-04] MEDS: 0.9 % Sodium Chloride 1,000 ML 999 ML IV (14:06)
[2022-04-04 14:10] LABS: Procalcitonin 0.08 ng/mL
[2022-04-04 14:45] LABS: Appearance Urine CLEAR; Color Urine YELLOW; Glucose Urine UA >=1000 MG/DL (NEG); Leukocyte Esterase Urine NEG (NEG); Nitrite Urine NEG (NEG); Urine Blood NEG (NEG); Urine Ketones 15 MG/DL (NEG); Urine Protein NEG (NEG-TRACE)
[2022-04-04 14:54] LABS: Renal Epithelial Cells Urine TRACE /LPF; Squamous Epithelial Cell Urine 1+ /LPF
[2022-04-04 14:55] LABS: WBC Urine 0-2 /HPF (0-4)
[2022-04-04 14:56] LABS: Oval Fat Bodies Urine NOTED
[2022-04-04 14:57] LABS: RBC Urine 0 /HPF (0)
[2022-04-04 16:13] VITALS: BP 133/79; PULSE 112; RESP 14; TEMP 36.8; O2SAT 96
[2022-04-04] MEDS: predniSONE 20 MG TABLET 60 MG PO (16:19)
--- NOTE | 2022-04-04 17:01 | PHA.MEDREC ---
Pharmacy Consult ? Medication Reconciliation Pharmacy has completed the medication reconciliation. Pt states that she still take zocor
[2022-04-04 18:38] VITALS: PULSE 115; RESP 16; O2SAT 95
[2022-04-04 20:45] VITALS: BP 125/75; PULSE 116; RESP 24; TEMP 37.1; O2SAT 94
[2022-04-04] MEDS: amLODIPine Besylate 5 MG TABLET PO (20:57)
[2022-04-04] MEDS: Aspirin Enteric Coated 81 MG TABLET.DR PO (20:57)
[2022-04-04] MEDS: metFORMIN HCl 1,000 MG TABLET 1000 MG PO (20:57)
[2022-04-04] MEDS: NaPROXEN 500 MG TABLET PO (20:57)
[2022-04-04] MEDS: Atorvastatin Calcium 10 MG TABLET PO (21:03)
[2022-04-04] MEDS: Empagliflozin 10 MG TABLET PO (21:23)
[2022-04-05 00:16] VITALS: BP 109/69; PULSE 99; RESP 19; O2SAT 92
[2022-04-05 02:24] VITALS: PULSE 78; RESP 15
[2022-04-05 04:43] VITALS: PULSE 84; RESP 16; O2SAT 97
--- NOTE | 2022-04-05 04:50 | PC.NURSE ---
pt sleeping comfortably in bed, knee immobilizer intact, +CSM to RLE
[2022-04-05] MEDS: Omeprazole 20 MG CAPSULE.DR PO (06:02)
--- NOTE | 2022-04-05 06:05 | PC.NURSE ---
Pt medicated with AM medications, reports minimal pain @ this time. Pt awaiting breakfast, continue to monitor.
[2022-04-05 08:20] LABS: Hemoglobin 13.7 g/dl (12.0-16.0); Mean Corpuscular HGB Conc 33.4 g/dl (31.0-35.0); Mean Corpuscular Hemoglobin 28.4 pg (27.0-33.0); Mean Corpuscular Volume 84.9 fL (80.0-98.0); Mean Platelet Volume 9.2 fL (9.4-12.3); Platelet Count 214 X10*3/uL (160-400); Red Blood Count 4.83 X10*6/uL (4.20-5.50); Red Cell Distribution Width 13.2 % (11.0-16.0); White Blood Count 13.8 X10*3/uL (4.8-10.8)
[2022-04-05 08:43] VITALS: BP 113/60; PULSE 83; RESP 20; TEMP 36.4; O2SAT 94
[2022-04-05] MEDS: lisinopriL 40 MG TABLET PO (08:46)
[2022-04-05] MEDS: metFORMIN HCl 1,000 MG TABLET 1000 MG PO (08:46)
[2022-04-05] MEDS: NaPROXEN 500 MG TABLET PO (08:46)
[2022-04-05] MEDS: hydroCHLOROthiazide 25 MG TABLET PO (08:46)
[2022-04-05] MEDS: Aspirin Enteric Coated 81 MG TABLET.DR PO (08:47)
[2022-04-05] MEDS: amLODIPine Besylate 5 MG TABLET PO (08:47)
[2022-04-05] MEDS: glipiZIDE 10 MG TABLET PO (09:01)
[2022-04-05] MEDS: Empagliflozin 10 MG TABLET PO (09:01)
[2022-04-05 09:03] VITALS: BP 113/60; PULSE 83; O2SAT 94
--- NOTE | 2022-04-05 10:22 | MHC.CM.ED ---
Received case management consult overnight. Patient came to ER after a fall. Patient was seen by physical therapy. Recommended for patient to go home with family help. Patient left before being seen by case management.
== END 2022-04-05 09:23 | disposition home or self-care (01) ==
PROVIDERS: Emergency Provider Emergency Medicine; PCP Internal Medicine
DX: M25.461 Effusion, right knee (principal); R00.0 Tachycardia, unspecified; M79.604 Pain in right leg; I10 Essential (primary) hypertension; E11.9 Type 2 diabetes mellitus without complications; E78.5 Hyperlipidemia, unspecified; Z96.651 Presence of right artificial knee joint; Z91.81 History of falling; Z20.822 Contact with and (suspected) exposure to COVID-19
CPT/HCPCS: 36415; 71045; 73564; 80048; 80076; 81001; 83605; 83690; 83735; 83880; 84145; 84443; 84484; 85025; 85027; 85379; 87635; 93005; 93971; 96361; 96374; 97161; 99285

== ENCOUNTER → 2022-04-12 09:05 | Outpatient (BNVA) | payer MEDICARE, OTHER, SELFPAY | PROVIDERS: PCP Internal Medicine; Visit Provider Physician Assistant | DX: M25.461 Effusion, right knee (principal); M17.12 Unilateral primary osteoarthritis, left knee | CPT/HCPCS: 99212 ==

== ENCOUNTER 2023-01-09 08:39 | Outpatient (REF) | payer MEDICARE, OTHER, SELFPAY ==
[2023-01-09 08:51] LABS: MANUAL DIFF FLAG NO
[2023-01-09 09:27] LABS: Basophils Absolute Auto 0.1 X10*3/uL (0.0-0.2); Basophils Percent Auto 0.7 % (0-2); Eosinophils Absolute Auto 0.2 X10*3/uL (0.0-0.4); Eosinophils Percent Auto 2.3 % (0-4); Hemoglobin 15.3 g/dl (12.0-16.0); Imm Gran Abs Auto 0.05 X10*3/uL (0.00-0.03); Imm Gran Pct Auto 0.7 % (0.0-0.4); Lymphocytes Absolute Auto 2.2 X10*3/uL (1.2-4.9); Lymphocytes Percent Auto 31.7 % (20-40); Mean Corpuscular HGB Conc 33.3 g/dl (31.0-35.0); Mean Corpuscular Volume 84.2 fL (80.0-98.0); Mean Platelet Volume 9.1 fL (9.4-12.3); Monocytes Absolute Auto 0.5 X10*3/uL (0.1-1.2); Monocytes Percent Auto 7.3 % (2-11); Neutrophils Absolute Auto 3.9 x10*3/uL (2.0-8.3); Neutrophils Percent Auto 57.3 % (45-73); Platelet Count 234 X10*3/uL (160-400); Red Blood Count 5.46 X10*6/uL (4.20-5.50); Red Cell Distribution Width 12.9 % (11.0-16.0); White Blood Count 6.9 X10*3/uL (4.8-10.8)
[2023-01-09 09:34] LABS: Estimated Average Glucose 137 mg/dL; Hemoglobin A1c % 6.4 %
[2023-01-09 10:20] LABS: Alanine Aminotransferase 20 U/L (0-31); Albumin Level 4.6 g/dL (3.5-5.0); Alkaline Phosphatase 63 U/L (39-117); Anion Gap 19 (12-20); Aspartate Amino Transferase 18 U/L (5-31); Bilirubin Total 0.9 mg/dL (0.0-1.0); Blood Urea Nitrogen 22 mg/dL (9-16); Calcium 9.8 mg/dL (8.4-10.2); Carbon Dioxide 24 mmol/L (22-29); Chloride 102 mmol/L (96-108); Cholesterol 177 mg/dL; Estimated Glomerular Filt Rate > 60; Glucose Random 116 mg/dL (60-115); HDL Cholesterol 48 mg/dL; LDL Cholesterol Calculated 96 mg/dl; Potassium 3.7 mmol/L (3.3-5.1); Sodium 141 mmol/L (135-145); Total Protein 7.2 g/dL (6.5-8.0); Triglycerides 165 mg/dL
[2023-01-09 10:41] LABS: Creatinine Urine 78.13 mg/dL; Microalbumin Urine < 5.0 mg/L
[2023-01-09 10:54] LABS: Folate 16.1 ng/mL (> or = 4.0); Free T4 (Free Thyroxine) 1.01 ng/dL (0.71-1.85); Thyroid Stimulating Hormone 1.19 uIU/mL (0.32-4.0); Vitamin B12 988 pg/mL (200-900); Vitamin D 25-OH Total 41.4 ng/mL (>30)
== END 2023-01-09 08:40 | disposition home or self-care (01) ==
LOC: HO.LAB 08:39
PROVIDERS: PCP Internal Medicine; Visit Provider Internal Medicine
DX: K21.9 Gastro-esophageal reflux disease without esophagitis (principal); E78.00 Pure hypercholesterolemia, unspecified; E11.65 Type 2 diabetes mellitus with hyperglycemia
CPT/HCPCS: 36415; 80053; 80061; 82043; 82306; 82607; 82746; 83036; 84439; 84443; 85025

== ENCOUNTER 2023-03-04 10:24 | Outpatient (REF) | payer MEDICARE, OTHER, SELFPAY ==
--- NOTE | ~2023-03-04 | MM_ITS ---
EXAMINATION: MM SCREENING DIGITAL BREAST TOMOSYNTHESIS, BILATERAL CLINICAL INFORMATION: Screening. Asymptomatic. The lifetime risk of breast cancer based on the Tyrer-Cuzick Model is 4%. COMPARISON: Mammography: 02/05/2022, 01/16/2021, 01/15/2019 TECHNIQUE: Digital breast tomosynthesis is performed in both the craniocaudal and mediolateral oblique views along with computer-aided detection (CAD). Synthesized 2D images are generated from the tomosynthesis. Additional bilateral CC views are provided. FINDINGS: There are scattered areas of fibroglandular density (ACR BI-RADS breast composition Category b). There are no significant masses, abnormal calcifications, or other abnormalities. No architectural abnormality or developing density or significant change from prior studies. The axilla are unremarkable. MM/MM tomosynthesis screening BI IMPRESSION: No mammographic evidence of malignancy. ASSESSMENT: BI-RADS 1: Negative RECOMMENDATION: Routine annual mammography screening. This patient's information was entered into a reminder system with a target due date for their next mammogram.
== END 2023-03-04 10:25 | disposition home or self-care (01) ==
LOC: HO.MAMMO 10:24
PROVIDERS: PCP Internal Medicine; Visit Provider Internal Medicine
DX: Z12.31 Encounter for screening mammogram for malignant neoplasm of breast (principal)
CPT/HCPCS: 77063; 77067

== ENCOUNTER 2023-05-06 09:14 | Day surgery (SDC) | payer MEDICARE, OTHER, SELFPAY ==
--- NOTE | 2023-05-03 13:20 | P.CONAN_ITS ---
Documented by User: Nini Araujo NP 05/03/23 13:21 HPI - Anesthesia Eval Consult details Narrative: 73yo F for Upper Endoscopy and Colonoscopy PMFSH Active Problems Active Problems: All Active Problems (Updated 01/14/23 @ 11:30 by Tarun Aragon MD) Colon cancer screening (Acute) COVID-19 virus infection (Acute) Osteoarthritis of left knee (Acute) Osteoporosis (Acute) Otitis media, chronic, bilateral (Acute) Osteopenia (Acute) Eczema (Acute) Type 2 diabetes mellitus with hyperglycemia (Acute) Hypercholesterolemia (Acute) GERD (gastroesophageal reflux disease) (Acute) Obesity (BMI 30-39.9) (Acute) Hypertension (Acute) Dysuria (Acute) Past Medical History Medical History Diverticulitis Fatty liver GERD (gastroesophageal reflux disease) Hypercholesterolemia Hypertension Insomnia Obesity (BMI 30-39.9) Osteoarthritis, knee Pulmonary nodule Type 2 diabetes mellitus with hyperglycemia Vitamin D deficiency Family History Family History Father Hypertension Mother Ovarian cancer Sister Breast cancer Surgical History Surgical History History of section History of knee replacement procedure of right knee Social History Social History Housing: Apartment Alcohol intake: never Patient Tobacco Use Status: Never used Tobacco e-Cigarette/Vaping Use: Never Used Second Hand Smoke Exposure: No Are you DNR?: No Advance Directives: No Advance Directives Information Provided: Yes Nutrition Risks: No Nutritional Risk Current occupational status: retired Cognitive needs: No Hearing needs: No Vision needs: Yes Meds Allergies Allergy/AdvReac Type Severity Reaction Status Date / Time penicillin V Allergy Unknown Pt was Verified 05/06/23 10:12 told she was allergic as a child. Home Medications Medication Instructions Recorded Confirmed Last Taken Type blood sugar diagnostic #10 ea 10/05/20 07/16/22 Unknown History dulaglutide 0.75 mg/0.5 mL 0.75 mg subcut MO 04/04/22 05/06/23 04/02/22 History subcutaneous pen injector Exam Exam Date and Time: May 03, 2023 1320 Pertinent Lab Results Pertinent Lab Results: Laboratory Tests 01/09/23 01/09/23 08:49 08:49 WBC 6.9 Hgb 15.3 Hct 46.0 Plt Count 234 Sodium 141 Potassium 3.7 Chloride 102 Carbon Dioxide 24 BUN 22 H Creatinine 0.83 Assessment and Plan Assessment Anesthesia Assessment: Chart Reviewed Documented by User: Lisa Mir MD 05/06/23 11:10 [facility] Past Medical History Medical History Diverticulitis Fatty liver GERD (gastroesophageal reflux disease) Hypercholesterolemia Hypertension Insomnia Obesity (BMI 30-39.9) Osteoarthritis, knee Pulmonary nodule Type 2 diabetes mellitus with hyperglycemia Vitamin D deficiency Family History Family History Father Hypertension Mother Ovarian cancer Sister Breast cancer Family history of problems with anesthesia: No Surgical History Surgical History History of section History of knee replacement procedure of right knee History of Problems with Anesthesia: No Social History Social History Housing: Apartment Alcohol intake: never Patient Tobacco Use Status: Never used Tobacco e-Cigarette/Vaping Use: Never Used Second Hand Smoke Exposure: No Are you DNR?: No Advance Directives: No Advance Directives Information Provided: Yes Nutrition Risks: No Nutritional Risk Current occupational status: retired Cognitive needs: No Hearing needs: No Vision needs: Yes Meds Allergies Allergy/AdvReac Type Severity Reaction Status Date / Time penicillin V Allergy Unknown Pt was Verified 05/06/23 10:12 told she was allergic as a child. Home Medications Medication Instructions Recorded Confirmed Last Taken Type blood sugar diagnostic #10 ea 10/05/20 07/16/22 Unknown History dulaglutide 0.75 mg/0.5 mL 0.75 mg subcut MO 04/04/22 05/06/23 04/02/22 History subcutaneous pen injector Exam Airway Mallampati Class: I TM Dist: >3cm Neck ROM: Full Loose/Missing/Broken Teeth: No Heart: rr Lungs: cta Assessment and Plan Final Anesthetic Review Family History of Problems with Anesthesia: No History of Problems with Anesthesia: No NPO: Yes ASA Class: II Final Preanesthetic Review: No Changes in Pt Med Stat, Meds/Allgs Chart Reviewed, Consent Obtained/Reviewed and Anes Risks/Benef Reviewed Patient Risk: Low Procedure Risk: Low Anesthetic Plan Anesthetic Plan: MAC: Disposition: Standard PACU
[2023-05-06 09:38] VITALS: BMI 32.1
[2023-05-06] MEDS: Lactated Ringers 1,000 ML 100 ML IVCONT (09:53)
[2023-05-06 10:07] LABS: Glucose, Whole Blood 112 mg/dL (60-115)
[2023-05-06 10:09] VITALS: BP 134/82; PULSE 65; RESP 18; TEMP 36.7; O2SAT 96
[2023-05-06 12:51] VITALS: BP 141/52; PULSE 70; RESP 16; TEMP 36.1; O2SAT 95
--- NOTE | 2023-05-06 12:54 | P.BOP_ITS ---
Brief Operative Note Date of Service: 05/06/23 Pre-op diagnosis: GERD, Screening Post-op diagnosis: other (Hiatal hernia, Gastric polyp, Colon polyps) Procedure: EGD with bx, Colonoscopy to the cecum and TI with bx, bx/removal of polyps, and hot snare polypectomy Surgeon: Michael Barragan Anesthesia: MAC Was an Scientific Process Operator used for this Procedure?: No Estimated blood loss (mL): 2.0 Pathology: other (A. Descending duodenum B. Gastric polyp C. Cecal polyps. D. Ascending colon E. Transverse colon polyp F. Descending colon F. ) Condition: stable Disposition: PACU
[2023-05-06 13:09] VITALS: BP 112/55; PULSE 68; RESP 16; TEMP 36.1; O2SAT 98
--- NOTE | 2023-05-06 22:34 | OP_ITS ---
DATE OF SERVICE: 05/06/2023 SURGEON: Michael Barragan MD INDICATIONS: The patient presents for evaluation of gastroesophageal reflux, irregular bowel movements, and colorectal cancer screening. Full consent obtained from her for both procedures, including risks of bleeding and perforation. PREOPERATIVE DIAGNOSIS: POSTOPERATIVE DIAGNOSIS: PROCEDURE PERFORMED: ESTIMATED BLOOD LOSS: COMPLICATIONS: ANESTHESIA: Monitored anesthesia care. ASSISTANTS: SPECIMENS: PREOPERATIVE DIAGNOSES: 1. Irregular bowel movements. 2. Gastroesophageal reflux. 3. Colorectal cancer screening. POSTOPERATIVE DIAGNOSES: 1. Irregular bowel movements. 2. Gastroesophageal reflux. 3. Colorectal cancer screening. 4. Hiatal hernia. 5. Gastric polyp. 6. Rule out celiac disease. 7. Colon polyps. 8. Rule out microscopic colitis. 9. Diverticulosis. 10. Internal hemorrhoids. PROCEDURES PERFORMED: Esophagogastroduodenoscopy with biopsies, and colonoscopy to the cecum, terminal ileum with hot snare polypectomy, biopsy and removal of polyp, and biopsies. DESCRIPTION OF PROCEDURE: The patient was placed in the left lateral decubitus position. The Olympus video gastroscope was passed in the posterior oropharynx and upper esophagus under direct vision. The scope was passed slowly into the distal esophagus. The gastroesophageal junction appeared at 32 cm. There was no sign of any esophagitis nor Bee esophagus. The scope entered the stomach. There was a small to moderate-sized hiatal hernia. The hiatal hernia mucosa appeared normal. The scope was advanced to the pylorus and the duodenum was cannulated to the descending portion. The duodenum including the bulb appeared normal without mass or ulceration. Biopsies were obtained from the 2nd and 3rd portions of duodenum. The scope was withdrawn back to the stomach. The gastric antrum and body appeared normal other than a 3 mm gastric polyp, which was biopsied and removed with cold biopsy forceps. I did not visualize any sign of gastritis nor ulcers. The scope was retroflexed visualizing the proximal stomach carefully, which appeared normal, without any sign of mass or ulceration. The scope was straightened and withdrawn back to the esophagus. The esophageal mucosa appeared normal. The scope was withdrawn from the patient. She was turned around for a colonoscopy. The digital rectal exam revealed no abnormalities. The [employer] H2 video pediatric colonoscope was entered into the rectum and advanced to the cecum with the assistance of abdominal pressure. Once in the cecum, I did identify cecal pouch with appendiceal orifice and a normal-appearing ileocecal valve. The terminal ileum was cannulated and appeared normal. The scope withdrawn back in the colon. In the cecum were 2 polyps; one was approximately 3 mm in size and biopsied and completely removed with cold biopsy forceps. The other polyp was approximately 8 mm in diameter and was removed by hot snare polypectomy and recovered by suction. The polypectomy site appeared clean, without any sign of residual polyp nor bleeding. The scope was then slowly withdrawn, assessing all mucosal surfaces carefully. Preparation was excellent. In the transverse colon was a 3-mm polyp, which was biopsied and completely removed with cold biopsy forceps. I did not visualize any sign of other polyps, colitis, or angiodysplasia. Random biopsies were obtained in the ascending and descending colon. There was a moderate amount of sigmoid diverticulosis. In the rectum, scope was retroflexed visualizing internal hemorrhoids, but no other pathology. The rectal mucosa appeared normal. The scope was straightened and withdrawn from the patient. She tolerated both procedures well and was returned to recovery area in stable condition. IMPRESSION: 1. Colon polyps. 2. Rule out celiac disease. 3. Hiatal hernia. 4. Gastric polyp. 5. Rule out microscopic colitis. 6. Diverticulosis. 7. Internal hemorrhoids. PLAN: The results of biopsy will be checked. I would recommend a repeat colonoscopy in 5 years for further surveillance, assuming the polyps are tubular adenomas. She was advised not to use any aspirin and NSAIDs for 1 week. She will continue omeprazole for symptomatic relief of reflux. She does report that she has been feeling better by avoiding regular milk and using soy milk instead. I did advise her to continue that as she does appear to have some lactose intolerance that was contributing to the irregular bowel movements. She will otherwise see me on a p.r.n. basis. MD RITA Osei/SIMON / [id number]
== END 2023-05-06 13:44 | disposition home or self-care (01) ==
PROVIDERS: PCP Internal Medicine; Visit Provider Internal Medicine
PROC: (CPT 45385; principal; 2023-05-06 10:50)
DX: Z12.11 Encounter for screening for malignant neoplasm of colon (principal); D12.0 Benign neoplasm of cecum; D12.3 Benign neoplasm of transverse colon; K57.30 Diverticulosis of large intestine without perforation or abscess without bleeding; K64.8 Other hemorrhoids; K21.9 Gastro-esophageal reflux disease without esophagitis; K31.7 Polyp of stomach and duodenum; K44.9 Diaphragmatic hernia without obstruction or gangrene; I10 Essential (primary) hypertension; E78.00 Pure hypercholesterolemia, unspecified; E11.9 Type 2 diabetes mellitus without complications; Z79.84 Long term (current) use of oral hypoglycemic drugs; Z79.899 Other long term (current) drug therapy
CPT/HCPCS: 45385; 45380; 43239; 82947; 88305; 88342

== ENCOUNTER 2023-12-05 07:43 | Outpatient (REF) | payer MEDICARE, OTHER, SELFPAY | END 2023-12-05 07:44 | disposition home or self-care (01) | LOC: HO.LAB 07:43 | PROVIDERS: PCP Internal Medicine; Visit Provider Internal Medicine | DX: E11.65 Type 2 diabetes mellitus with hyperglycemia (principal); E78.00 Pure hypercholesterolemia, unspecified | CPT/HCPCS: 36415; 80053; 80061; 82043; 82306; 82570; 82607; 82746; 83036; 84439; 84443; 85025 ==

== ENCOUNTER 2023-12-09 08:34 | Outpatient (AMB) | payer MEDICARE, OTHER, SELFPAY ==
[2023-12-09 08:42] VITALS: BP 102/60; PULSE 91; O2SAT 98; BMI 30.7
--- NOTE | 2023-12-09 08:42 | AM.OFFVISMDC ---
Intake Vital Signs 12/09/23 08:42 12/09/23 09:10 Height 4 ft 11 in Weight 152 lb BMI 30.7 BP 102/60 124/70 Blood Pressure Location Lt brachial Lt brachial Position Sitting Sitting Pulse 91 Pulse Source Pulse Oximeter Pulse Oximetry (%) 98 Oxygen Delivery Method Room Air Intake Visit Reasons: AWV [id number] Allergies penicillin V Allergy (Unknown, Verified 12/09/23 08:42) Pt was told she was allergic as a child. Medication List - Last Reconciled 12/09/23 by Tarun Aragon MD amlodipine 5 mg PO DAILY 90 days blood sugar diagnostic As directed blood sugar diagnostic (FreeStyle Lite Strips) As directed check the BS BID cholecalciferol (vitamin D3) 25 mcg PO DAILY cyanocobalamin (vitamin B-12) 1,000 mcg PO DAILY dulaglutide 0.75 mg (0.5 mL) subcut MO empagliflozin (Jardiance) 10 mg PO DAILY hydrochlorothiazide 25 mg PO DAILY 90 days meloxicam 15 mg PO DAILY metformin 1,000 mg (2 x 500 mg) PO BID omeprazole 20 mg PO DAILY ramipril 10 mg PO DAILY simvastatin 20 mg PO BEDTIME 90 days HPI AWV G0438 HPI Details 73-year-old obese female with controlled diabetes mellitus GERD hypercholesterolemia hypertension coming in for annual well visit. Last seen in January 2023. Patient's mammograms up-to-date colonoscopy is up-to-date bone density is due.. Recent EGD and colonoscopy May 2023 showing colon polyps diverticulosis and internal hemorrhoids negative for celiac has tubular adenoma and has been advised to follow-up colonoscopy in 5 years. [facility] Medical History Diverticulitis Fatty liver GERD (gastroesophageal reflux disease) Hypercholesterolemia Hypertension Insomnia Obesity (BMI 30-39.9) Osteoarthritis, knee Pulmonary nodule Type 2 diabetes mellitus with hyperglycemia Vitamin D deficiency Surgical History History of section History of knee replacement procedure of right knee Family History Father Hypertension Mother Ovarian cancer Sister Breast cancer Social History Housing: Apartment Alcohol intake: never Patient Tobacco Use Status: Never used Tobacco e-Cigarette/Vaping Use: Never Used Second Hand Smoke Exposure: No Current occupational status: retired Cognitive needs: No Hearing needs: No Vision needs: Yes Questionnaire Medicare Wellness Checkup [age] What gender do you identify with?: female During the past 4 weeks, how much have you been bothered by emotional problems such as feeling anxious, depressed, irritable, sad or downhearted, and blue?: not at all During the past 4 weeks, has your physical & emotional health limited your social activities with family, friends, neighbors, or groups?: not at all During the past 4 weeks, how much bodily pain have you generally had?: very mild pain During the past 4 weeks, was someone available to help you if you needed & wanted help?: yes, as much as I wanted During the past 4 weeks, what was the hardest physical activity you could do for at least 2 minutes?: very heavy Can you get to places out of walking distance without help? (For eg., can you travel alone on buses, taxis or drive your car?): Yes Can you go shopping for groceries or clothes without someone's help?: Yes Can you prepare your own meals?: Yes Can you do your housework without help?: Yes Because of any health problems, do you need the help of another person with your personal care needs such as eating, bathing, dressing or getting around the house?: No Can you handle your own money without help?: Yes During the past 4 weeks, how would you rate your health in general?: good During the past 4 weeks how have things been going for you?: very well; could hardly better Are you having difficulties driving your car?: no Do you always fasten your seat belt when you are in a car?: yes, usually During past 4 weeks, have you been bothered by the following: never: Falling or dizzy when standing up, Sexual problems?, Trouble eating well?, Teeth or denture problems?, Problems using the telephone? and Tiredness or fatigue? Have you fallen 2 or more times in the past year?: No Are you afraid of falling?: No Are you a smoker?: no During the past 4 weeks, how many drinks of wine, beer, or other alcoholic beverages did you have?: no alcohol at all Do you exercise for about 20 minutes 3 or more times a week?: yes, most of the time Have you been given information to help with the following?: yes: Keeping track of your medications? and no: Hazards in your house that might hurt you? How often do you have trouble taking medicines the way you have been told to take them?: I always take medicine as prescribed How confident are you that you can control & manage most of your health problems?: very confident What is your race?: White PHQ-9 Over the last 2 weeks, how often have you been bothered by any of the following problems? 1. Little interest or pleasure in doing things: not at all 2. Feeling down, depressed, or hopeless: not at all 3. Trouble falling or staying asleep, or sleeping too much: several days 4. Feeling tired or having little energy: not at all 5. Poor appetite or overeating: not at all 6. Feeling bad about yourself - or that you are a failure or have let yourself or your family down: not at all 7. Trouble concentrating on things, such as reading the newspaper or watching television: not at all 8. Moving or speaking so slowly that other people could have noticed. Or the opposite - being so fidgety or restless that you have been moving around a lot more than usual: not at all 9. Thoughts that you would be better off or of hurting yourself in some way: not at all Total score: 1 Depression Screening Interpretation: Negative Depression Screening Done: Yes 61634 - PHQ-9 Billing: Yes Source: Developed by Drs. Michael Harrington, Mary Ann Diop, Niels Greene and colleagues, with an educational leonid from [employer]. OSCAR-7 AMB Questionnaire OSCAR-7 Date OSCAR - 7 assessed: 01/14/23 Feeling nervous, anxious, or on edge: 0 = Not at all Not being able to stop or control worryin = Not at all Worrying too much about different things: 0 = Not at all Trouble relaxin = Not at all Being so restless that it is hard to sit still: 0 = Not at all Becoming easily annoyed or irritable: 0 = Not at all Feeling afraid as if something awful might happen: 0 = Not at all Total OSCAR-7 score (0-4 normal; 5-9 mild; 10-14 moderate; 15-21 severe): 0 Source: Developed by Drs. Michael Harrington, Mary Ann Diop, Niels Greene and colleagues, with an educational leonid from [employer]. AUDIT C Alcohol Use Questionnaire (AUDIT-C) 1. How often do you have a drink containing alcohol?: Never 3. How often do you have six or more drinks on one occasion?: Never Total Score: 0 Thrive Questionnaire Date Thrive assessed: 01/14/23 Review of Systems Const Denies poor appetite and Denies weakness Eyes Denies no additional complaints ENT Reports Normal hearing present, Denies dizziness, Denies nasal congestion, Denies tinnitus and Denies sore throat Card Denies chest pain, Denies syncope, Denies rapid heart rate and Denies dyspnea Resp Denies cough and Denies dyspnea GI Denies change in stool character, Reports constipation, Denies diarrhea, Denies nausea and Denies vomiting Denies urinary frequency, Denies difficulty voiding and Denies dysuria Neuro Reports Normal hearing present, Denies confusion, Denies dizziness, Denies syncope and Denies weakness Psych Denies confusion Physical Exam Vital Signs: Last Vital Signs Pulse 91 12/09/23 08:42 BP 102/60 12/09/23 08:42 Pulse Ox 98 12/09/23 08:42 Oxygen Delivery Method Room Air 12/09/23 08:42 BMI result Body Mass Index 30.7 Const General: No confusion Orientation/consciousness: No confusion HEENT Head: Yes normocephalic Ears: external ears normal and TM's normal bilaterally Face and sinus: Yes normal facial exam Mouth: moist mucous membranes Throat: Yes tonsils normal Eyes Conjunctivae: conjunctivae normal Pupils: Equal, round and reactive pupils present and Pupil accommodation reflex normal Direct Ophthalmoscopy: normal light reflex Neck Neck: No lymphadenopathy Thyroid: Thyroid normal Chest Chest palpation & inspection: normal inspection of the chest Resp Effort & Inspection: normal respiratory effort and no audible wheezes Auscultation: clear to auscultation bilaterally, no crackles, no wheezes and lung sounds not diminished Cardio Rate: regular rate Rhythm: regular rhythm Peripheral pulses: radial pulses present and dorsalis pedis present GI Other: colon test 05/2023 Palpation (GI): no masses Auscultation: normal bowel sounds and normoactive bowel sounds Rectal Exam - Female: deferred Other: pedal pulses and pin prick good Skin General skin exam: no rashes or lesions noted Rashes: no rashes Neuro General: No confusion Cranial nerves: Yes Equal, round and reactive pupils present and Yes Normal hearing present Cognition (Neuro): normal cognition Gait exam (Neuro): Normal gait present Motor exam (neuro): 5/5 motor strength present throughout Deep tendon reflexes (DTR's): Right brachioradialis reflex intensity grade: 2+, Left brachioradialis reflex intensity grade: 2+, Right patellar reflex intensity grade: 2+ and Left patellar reflex intensity grade: 2+ Extrem General: No edema Assessment & Plan Assessment & Plan (1) Medicare annual wellness visit, subsequent: Code(s): Z00.00 - Encounter for general adult medical examination without abnormal findings Plan: Continue with present medication. Discussed about keeping well hydrated, eating healthy and keeping active. (2) Obesity (BMI 30-39.9): Code(s): E66.9 - Obesity, unspecified Plan: Diet and exercise (3) Type 2 diabetes mellitus with hyperglycemia: Code(s): E11.65 - Type 2 diabetes mellitus with hyperglycemia Qualifiers: Diabetes mellitus alf insulin use: without terminal system operator use Qualified Code(s): E11.65 - Type 2 diabetes mellitus with hyperglycemia Plan: Decrease the amount of carbohydrate intake, pasta, bread, rice and potatoes are all sugar and that is aside from all the sweet stuff, remember that fruits are good but they are Sweet also. Hemoglobin A1c goal of less than 7.0 patient is on metformin a 1000 mg twice a day Jardiance 10 mg once a day Trulicity once a week (4) Hypercholesterolemia: Code(s): E78.00 - Pure hypercholesterolemia, unspecified Plan: Avoid fried foods, chicken skin, eggs, butter margarine, pastries and meat. Be it pork or beef they have a lot of cholesterol LDL goal of less than 100 and triglyceride of less than 150 patient on simvastatin 20 mg at bedtime (5) Hypertension: Comment: Stress 2013- Code(s): I10 - Essential (primary) hypertension Qualifiers: Hypertension type: essential hypertension Qualified Code(s): I10 - Essential (primary) hypertension Plan: Continue with blood pressure medication. Decrease salt intake and exercise continue with ramipril 10 mg once a day hydrochlorothiazide 25 mg once a day and amlodipine 5 mg once a day (6) GERD (gastroesophageal reflux disease): Code(s): K21.9 - Gastro-esophageal reflux disease without esophagitis Qualifiers: Esophagitis presence: without esophagitis Qualified Code(s): K21.9 - Gastro-esophageal reflux disease without esophagitis Plan: Avoid the foods that causes that usually spicy foods, tomato products, juices, coffee, soda and foods that your sensitive to. After eating do not lie down, allow 3-4 hours before in lie down. And keep the head of bed above 30 degrees to avoid the acid from going up. Continue with omeprazole 20 mg once a day (7) Tubular adenoma of colon: Comment: May 2023 Code(s): D12.6 - Benign neoplasm of colon, unspecified Plan: Patient advised to repeat colonoscopy in 5 years (8) Osteoporosis: Comment: November 2021 bone density Code(s): M81.0 - Age-related osteoporosis without current pathological fracture Qualifiers: Osteoporosis type: age-related Presence of current pathological fracture: without current pathological fracture Qualified Code(s): M81.0 - Age-related osteoporosis without current pathological fracture Plan: Bone density requested for follow-up Orders: Orders XR DEXA axial skeleton Today M81.0 - Age-related osteoporosis without current pathological fracture Quality Reporting (2019) Depression/Bipolar (159/160/161/177) PHQ-9: Total score: 1 Coding Level of Care Code Medicare Subsequent (G0439) Diagnoses Medicare annual wellness visit, subsequent Z00.00 Obesity (BMI 30-39.9) E66.9 Type 2 diabetes mellitus with hyperglycemia, without long-term current use of insulin E11.65 Diabetes mellitus alf insulin use: without alf use Hypercholesterolemia E78.00 Essential hypertension I10 Hypertension type: essential hypertension Gastroesophageal reflux disease without esophagitis K21.9 Esophagitis presence: without esophagitis Tubular adenoma of colon D12.6 Age-related osteoporosis without current pathological fracture M81.0 Osteoporosis type: age-related Presence of current pathological fracture: without current pathological fracture
[2023-12-09 09:10] VITALS: BP 124/70
== END 2023-12-09 09:30 | disposition home or self-care (01) ==
PROVIDERS: PCP Internal Medicine; Visit Provider Internal Medicine
DX: Z00.00 Encounter for general adult medical examination without abnormal findings (principal); E66.9 Obesity, unspecified; E11.65 Type 2 diabetes mellitus with hyperglycemia; Z68.30 Body mass index [BMI] 30.0-30.9, adult; E78.00 Pure hypercholesterolemia, unspecified; I10 Essential (primary) hypertension; K21.9 Gastro-esophageal reflux disease without esophagitis; D12.6 Benign neoplasm of colon, unspecified; M81.0 Age-related osteoporosis without current pathological fracture
CPT/HCPCS: G0439

== ENCOUNTER 2024-04-08 09:51 | Outpatient (REF) | payer MEDICARE, OTHER, SELFPAY ==
--- NOTE | ~2024-04-08 | MM_ITS ---
EXAMINATION: BONE DENSITOMETRY CLINICAL INDICATION: Age-related osteoporosis without current pathological fracture. COMPARISON: Previous BD dated 11/15/2021 and baseline BD dated 04/01/2007. TECHNIQUE: Using a [employer] DXA System (software version: 13.1) manufactured by [employer], dual-energy x-ray absorptiometry was performed of the lumbar spine and left hip. The images are of good technical quality. Summary results are attached. FINDINGS: LEFT FEMUR, NECK: Current: BMD 0.703 g/cm2, Z-score -0.7, T-score -2.4, osteopenia. Prior: BMD 0.694 g/cm2. Baseline: BMD 0.764 g/cm2. LEFT FEMUR, TOTAL: Current: BMD 0.884 g/cm2, Z-score 0.5, T-score -1.0, normal, 7.1% decrease from previous, 17.6% decrease from baseline (<5% change is not significant). Prior: BMD 0.952 g/cm2. Baseline: BMD 1.073 g/cm2. AP SPINE L1-L4: Current: BMD 1.030 g/cm2, Z-score 0.3, T-score -1.2, osteopenia, 1.3% decrease from previous, 7.0% decrease from baseline (<5% change is not significant). Prior: BMD 1.044 g/cm2. Baseline: BMD 1.108 g/cm2. IDENTIFIED RISK FACTORS: Menopause, thiazide, low calcium intake. HISTORY OF FRACTURE: None listed. MEDICATIONS: Calcium supplements or multivitamin, vitamin D. MM/XR DEXA axial skeleton IMPRESSION: 1. DIAGNOSIS: Osteopenia based on the lowest T-score value of -2.4 in the femoral neck applying World Health Organization criteria. 2. 10-YEAR FRACTURE RISK PREDICTION, FRAX: Major osteoporotic fracture (clinical spine, forearm, hip or shoulder) 14.6%. Hip fracture 3.8%. 3. Treatment Recommendations: NOF guidelines recommend consideration for treatment in postmenopausal women and men age 50 and older presenting with the following: -A hip or vertebral (clinical or morphometric) fracture. -T-score less than or equal to -2.5 at the femoral neck or spine after appropriate evaluation to exclude secondary causes. -Low bone mass at the hip or spine and a 10-year fracture probability by FRAX of greater than or equal to 3% for hip fracture or greater than or equal to 20% for major osteoporotic fracture based on the [place] adapted WHO algorithm. 4. Other Recommendations: All treatment decisions require clinical judgment and consideration of individual patient factors, including patient preferences, comorbidities, previous drug use, risk factors not captured in the FRAX model (e.g. frailty, falls, vitamin D deficiency, increased bone turnover, interval significant decline in bone density) and possible under or overestimation of fracture risk by FRAX. Additional medical evaluation for secondary cause of low bone mineral density may be appropriate. FUTURE SCAN RECOMMENDATION: People with diagnosed cases of osteoporosis or at high risk for fracture should have regular bone mineral density tests. For patients eligible for Medicare, routine testing is allowed once every 2 years. The testing frequency can be increased to one year for patients who have rapidly progressing disease, those who are receiving or discontinuing medical therapy to restore bone mass, or have additional risk factors.
--- NOTE | ~2024-04-08 | MM_ITS ---
EXAMINATION: MM SCREENING DIGITAL BREAST TOMOSYNTHESIS, BILATERAL CLINICAL INFORMATION: Screening. Asymptomatic. COMPARISON: Mammography: This study is compared with prior exams dating back to 2018. TECHNIQUE: Digital breast tomosynthesis is performed in both the craniocaudal and mediolateral oblique views along with computer-aided detection (CAD). Synthesized 2D images are generated from the tomosynthesis. FINDINGS: There are scattered areas of fibroglandular density (ACR BI-RADS breast composition Category b). There are no significant masses, abnormal calcifications, or other abnormalities. There is a biopsy tissue marker in the right breast. MM/MM tomosynthesis screening BI IMPRESSION: No mammographic evidence of malignancy. ASSESSMENT: BI-RADS BI-RADS 2 - Benign Findings RECOMMENDATION: Routine annual mammography screening. 1 year F/U This examination should not preclude the clinical evaluation of a suspicious palpable abnormality. This patient's information was entered into a reminder system with a target due date for their next mammogram.
== END 2024-04-08 09:52 | disposition home or self-care (01) ==
LOC: HO.MAMMO 09:51
PROVIDERS: PCP Internal Medicine; Visit Provider Internal Medicine
DX: Z12.31 Encounter for screening mammogram for malignant neoplasm of breast (principal); Z13.820 Encounter for screening for osteoporosis; Z78.0 Asymptomatic menopausal state; M81.0 Age-related osteoporosis without current pathological fracture
CPT/HCPCS: 77063; 77067; 77080

== ENCOUNTER → 2024-04-08 10:30 | Outpatient (BNV) | payer MEDICARE, OTHER, SELFPAY | PROVIDERS: PCP Internal Medicine; Visit Provider Radiology Diagnostic Radiology | DX: Z12.31 Encounter for screening mammogram for malignant neoplasm of breast (principal) | CPT/HCPCS: 77063; 77067 ==

== ENCOUNTER 2024-06-08 10:31 | Outpatient (AMB) | payer MEDICARE, OTHER, SELFPAY ==
[2024-06-08 10:35] VITALS: BP 110/70; PULSE 69; O2SAT 98; BMI 30.5
--- NOTE | 2024-06-08 10:35 | A.OFFPC_ITS ---
Vital Signs 06/08/24 10:35 Height 4 ft 11 in Weight 151 lb BMI 30.5 BP 110/70 Blood Pressure Location Lt brachial Position Sitting Pulse 69 Pulse Source Pulse Oximeter Pulse Oximetry (%) 98 Oxygen Delivery Method Room Air Intake Visit Reasons: DM Allergies penicillin V Allergy (Unknown, Verified 06/08/24 10:36) Pt was told she was allergic as a child. Medication List - Last Reconciled 06/08/24 by Tarun Aragon MD alclometasone 0.05% 1 appl topical BID PRN amlodipine 5 mg PO DAILY 90 days atorvastatin 10 mg PO DAILY blood sugar diagnostic As directed blood sugar diagnostic (FreeStyle Lite Strips) As directed check the BS BID cholecalciferol (vitamin D3) 25 mcg PO DAILY cyanocobalamin (vitamin B-12) 1,000 mcg PO DAILY dulaglutide 1.5 mg (0.5 mL) subcut QWEEK empagliflozin (Jardiance) 10 mg PO DAILY hydrochlorothiazide 25 mg PO DAILY 90 days meloxicam 15 mg PO DAILY metformin 1,000 mg (2 x 500 mg) PO BID omeprazole 20 mg PO DAILY ramipril 10 mg PO DAILY Tobacco use date assessed: 06/08/24 Fall risk assessment: No Falls in past year Last assessed Fall Risk: 06/08/24 Dental Screening Dental Screen Date: 06/08/24 Did you have a dental visit in the last 12 months?: Yes Did you have a dental problem in the last 6 months where you did not have access to dental care?: No Was dental information given to patient?: Patient has dentist HPI DM HPI Details 74-year-old obese female with controlled diabetes mellitus hypertension hypercholesterolemia GERD coming in for follow-up. Last seen in December for annual wellness. Patient's mammogram is up-to-date colonoscopy is up-to-date 05/21/2023 with tubular adenoma bone density is up-to-date 04/20/2024. [facility] Medical History (Updated 06/08/24 @ 10:59 by Tarun Aragon MD) Otitis media, chronic, bilateral Colon cancer screening Osteoporosis Diverticulitis Osteoarthritis, knee Type 2 diabetes mellitus with hyperglycemia Insomnia Vitamin D deficiency Hypercholesterolemia Pulmonary nodule GERD (gastroesophageal reflux disease) Obesity (BMI 30-39.9) Hypertension Fatty liver Surgical History History of knee replacement procedure of right knee History of section Family History (Updated 06/08/24 @ 10:37 by Lorena Rizzo CMA) Father Hypertension Mother Ovarian cancer Sister Breast cancer Social History Housing: Apartment Alcohol intake: never Patient Tobacco Use Status: Never used Tobacco e-Cigarette/Vaping Use: Never Used Second Hand Smoke Exposure: No Current occupational status: retired Cognitive needs: No Hearing needs: No Vision needs: Yes Questionnaire PHQ-9 Over the last 2 weeks, how often have you been bothered by any of the following problems? 1. Little interest or pleasure in doing things: not at all 2. Feeling down, depressed, or hopeless: not at all 3. Trouble falling or staying asleep, or sleeping too much: several days 4. Feeling tired or having little energy: not at all 5. Poor appetite or overeating: not at all 6. Feeling bad about yourself - or that you are a failure or have let yourself or your family down: not at all 7. Trouble concentrating on things, such as reading the newspaper or watching television: not at all 8. Moving or speaking so slowly that other people could have noticed. Or the opposite - being so fidgety or restless that you have been moving around a lot more than usual: not at all 9. Thoughts that you would be better off or of hurting yourself in some way: not at all Total score: 1 Depression Screening Interpretation: Negative Depression Screening Done: Yes 08858 - PHQ-9 Billing: Yes Source: Developed by Drs. Michael Harrington, Mary Ann Diop, Niels Greene and colleagues, with an educational leonid from [employer]. Thrive Questionnaire Date Thrive assessed: 06/08/24 I am a: Patient What is your living situation today?: I have a steady place to live Within the past 12 months, did the food you bought not last and you didn't have the money to get more?: Never true Within the past 12 months, did you worry whether your food would run out before you got money to buy more?: Never true Do you have trouble paying for medicines?: No Do you have trouble getting transportation to medical appointments?: No Do you have trouble paying your heating and electricity bill?: No Do you have trouble taking care of your child, family member or friend?: No Do you have trouble with day-to-day activities such as bathing, preparing meals, shopping, managing finances, etc.?: No Are you currently unemployed and looking for a job?: No Are you interested in more education?: No Currently or been in a relationship where the following occur: No concerns reported THRIVE Score: 0 AUDIT C Alcohol Use Questionnaire (AUDIT-C) 1. How often do you have a drink containing alcohol?: Never 3. How often do you have six or more drinks on one occasion?: Never Total Score: 0 OSCAR-7 AMB Questionnaire OSCAR-7 Date OSCAR - 7 assessed: 06/08/24 Feeling nervous, anxious, or on edge: 0 = Not at all Not being able to stop or control worryin = Not at all Worrying too much about different things: 0 = Not at all Trouble relaxin = Not at all Being so restless that it is hard to sit still: 0 = Not at all Becoming easily annoyed or irritable: 0 = Not at all Feeling afraid as if something awful might happen: 0 = Not at all Total OSCAR-7 score (0-4 normal; 5-9 mild; 10-14 moderate; 15-21 severe): 0 Source: Developed by Drs. Michael Harrington, Mary Ann Diop, Niels Greene and colleagues, with an educational leonid from [employer]. Physical exam (Primary Care) Vital Signs: Last Vital Signs Pulse 69 06/08/24 10:35 BP 110/70 06/08/24 10:35 Pulse Ox 98 06/08/24 10:35 Oxygen Delivery Method Room Air 06/08/24 10:35 BMI result Body Mass Index 30.5 Tobacco/Smoking Status: Tobacco use Status Tobacco use date assessed 06/08/24 06/08/24 10:38 Patient Tobacco Use Status Never used Tobacco 06/08/24 10:38 e-Cigarette/Vaping Use Never Used 06/08/24 10:38 PHQ-9: PHQ-9 Score PHQ-9: Total score 1 06/08/24 10:44 Depression Screening Interpretation: Negative Thrive Assessment: Date of Thrive Assessment Date Thrive assessed 06/08/24 06/08/24 10:38 Currently or been in a relationship where the following occur: No concerns reported Const General: alert; No acute distress Eyes Conjunctivae: conjunctivae normal Resp Auscultation: clear to auscultation bilaterally Cardio Rate: regular rate Rhythm: regular rhythm GI Inspection: Yes normal to inspection Extrem General: Yes normal to inspection and No edema Results AMB Hemoglobin A1c AMB Hemoglobin A1c 6.2 % Last Edit by Lorena Rizzo CMA on 06/08/24 10 :55 Assessment and Plan Assessment & Plan (1) Type 2 diabetes mellitus with hyperglycemia: Code(s): E11.65 - Type 2 diabetes mellitus with hyperglycemia Qualifiers: 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 Hemoglobin A1c goal of less than 7.0 on Trulicity Jardiance 10 mg once a day and metformin a 1000 mg twice a day (2) Obesity (BMI 30-39.9): Code(s): E66.9 - Obesity, unspecified Plan: Diet and exercise (3) Hypertension: Comment: 2013- Code(s): I10 - Essential (primary) hypertension Qualifiers: Hypertension type: essential hypertension Qualified Code(s): I10 - Essential (primary) hypertension Plan: Continue with blood pressure medication. Decrease salt intake and exercise ramipril 10 mg once a day and amlodipine 5 mg once a day (4) Hypercholesterolemia: Code(s): E78.00 - Pure hypercholesterolemia, unspecified Plan: Avoid fried foods, chicken skin, eggs, butter margarine, pastries and meat. Be it pork or beef they have a lot of cholesterol LDL goal of less than 100 and triglyceride of less than 150 takes simvastatin 20 mg once a day (5) Osteopenia: Comment: April 2024 Code(s): M85.80 - Other specified disorders of bone density and structure, unspecified site Plan: Bone density noted to have osteopenia. Discussed about medication and has spoken to the dentist prescription for alendronate sent in once a week discussed about how to take the medication. (6) Facial dermatitis: Comment: R eye brow area Code(s): L30.9 - Dermatitis, unspecified Plan: Referral to dermatology done and steroid cream was prescribed. (7) Diabetic neuropathy: Code(s): E11.40 - Type 2 diabetes mellitus with diabetic neuropathy, unspecified Plan: Discussed about the complications of diabetes having neuropathy declined any new medication for now Orders: Orders Lipid Panel 3 Months E78.00 - Pure hypercholesterolemia, unspecified Comprehensive Met. Panel 3 Months E78.00 - Pure hypercholesterolemia, unspecified Vitamin B12 and Folate 6 Months E11.65 - Type 2 diabetes mellitus with hyperglycemia Creatinine Urine 6 Months E11.65 - Type 2 diabetes mellitus with hyperglycemia Vitamin D 25-OH Total 6 Months E11.65 - Type 2 diabetes mellitus with hyperglycemia AMB Hemoglobin A1c Today Z13.9 - Encounter for screening, unspecified Hemoglobin A1c 3 Months E11.65 - Type 2 diabetes mellitus with hyperglycemia Complete Blood Count Auto Diff 6 Months E11.65 - Type 2 diabetes mellitus with hyperglycemia Comprehensive Met. Panel 6 Months E11.65 - Type 2 diabetes mellitus with hyperglycemia Free T4 (Free Thyroxine) 6 Months E11.65 - Type 2 diabetes mellitus with hyperglycemia Thyroid Stimulating Hormone 6 Months E11.65 - Type 2 diabetes mellitus with hyperglycemia Lipid Panel 6 Months E11.65 - Type 2 diabetes mellitus with hyperglycemia, E78.00 - Pure hypercholesterolemia, unspecified Microalbumin, Random (w Creat) 6 Months E11.65 - Type 2 diabetes mellitus with hyperglycemia Hemoglobin A1c 6 Months E11.65 - Type 2 diabetes mellitus with hyperglycemia Referrals Dermatology Referral L30.9 - Dermatitis, unspecified Medications: New atorvastatin 10 mg PO DAILY 90 tabs 1RF E78.00 - Pure hypercholesterolemia, unspecified alendronate 70 mg PO QWEEK 12 weeks 12 tabs 2RF M85.80 - Other specified disorders of bone density and structure, unspecified site alclometasone 0.05% 1 appl topical BID PRN 15 grams 0RF itching L30.9 - Dermatitis, unspecified Changed From dulaglutide 0.75 mg (0.5 mL) subcut MO 6 mL 3RF E11.65 - Type 2 diabetes mellitus with hyperglycemia To dulaglutide 1.5 mg (0.5 mL) subcut QWEEK 2 mL 3RF E11.65 - Type 2 diabetes mellitus with hyperglycemia Refilled hydrochlorothiazide 25 mg PO DAILY 90 days 90 tabs 2RF I10 - Essential (primary) hypertension meloxicam 15 mg PO DAILY 90 tabs 3RF E11.65 - Type 2 diabetes mellitus with hyperglycemia omeprazole 20 mg PO DAILY 90 caps 3RF K21.9 - Gastro-esophageal reflux disease without esophagitis dulaglutide 1.5 mg (0.5 mL) subcut QWEEK 12 ea 3RF E11.65 - Type 2 diabetes mellitus with hyperglycemia amlodipine 5 mg PO DAILY 90 days 90 tabs 2RF I10 - Essential (primary) hypertension empagliflozin (Jardiance) 10 mg PO DAILY 90 tabs 3RF E11.65 - Type 2 diabetes mellitus with hyperglycemia metformin 1,000 mg (2 x 500 mg) PO BID 360 tabs 3RF E11.65 - Type 2 diabetes mellitus with hyperglycemia ramipril 10 mg PO DAILY 90 caps 3RF R30.0 - Dysuria Discontinued simvastatin Discontinued Reason: Doctor's Order 20 mg PO BEDTIME 90 days 90 tabs 3RF R30.0 - Dysuria Coding Level of Care Code Est Pt Level 4 (61437) Diagnoses Type 2 diabetes mellitus with hyperglycemia, without long-term current use of insulin E11.65 Diabetes mellitus skilled nursing insulin use: without local intermodal truck driver use Obesity (BMI 30-39.9) E66.9 Essential hypertension I10 Hypertension type: essential hypertension Hypercholesterolemia E78.00 Osteopenia M85.80 Facial dermatitis L30.9 Diabetic neuropathy E11.40
== END 2024-06-08 11:15 | disposition home or self-care (01) ==
PROVIDERS: PCP Internal Medicine; Visit Provider Internal Medicine
DX: E11.65 Type 2 diabetes mellitus with hyperglycemia (principal); I10 Essential (primary) hypertension; E78.00 Pure hypercholesterolemia, unspecified; M85.80 Other specified disorders of bone density and structure, unspecified site; L30.9 Dermatitis, unspecified
CPT/HCPCS: 83036; 99214

== ENCOUNTER 2024-07-24 09:31 | Emergency (ER) | payer MEDICARE, OTHER, SELFPAY ==
--- NOTE | ~2024-07-24 | CT_ITS ---
EXAMINATION: CT CHEST WITHOUT CONTRAST CLINICAL INFORMATION: Esophagus pain COMPARISON: September 25, 2017 TECHNIQUE: Multidetector volumetric CT imaging of the chest was done. Axial MIP volume rendering provided. Sagittal and coronal reformatted images were obtained. Examination performed using diluted Gastrografin oral This CT examination was performed using dose optimization techniques as appropriate, variously including the following: *Automated exposure control *Adjustment of mA and/or kV according to patient size (this includes techniques or standardized protocols for targeted exams where dose is matched to indication/reason for exam; i.e. extremities or head) *Use of iterative reconstruction technique DLP: 203 mGy-cm FINDINGS: SCIENTIFIC ILLUSTRATOR: Unremarkable LUNGS: There are scattered punctate lung nodules since bilaterally with the largest in the left lower lobe seen on image 63 series 10 and measures 0.3 cm MEDIASTINUM: The mediastinum is normal. Esophagus is not dilated or obstructed. There is small hiatal hernia CORONARY ARTERY CALCIFICATION: Mild to moderate PLEURA: There is no pleural effusion. No pleural mass or thickening. AXILLA: No lymphadenopathy. UPPER ABDOMEN: Unremarkable. OSSEOUS STRUCTURES: There are hemangiomas in vertebral bodies of T9 and T7 and mild changes of degenerative spondylosis CT/CT chest wo IV con IMPRESSION: 1. Small hiatal hernia. 2. Multiple stable punctate lung nodules, all less than 4 mm. 3. 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 Fleischner guidelines were followed. Electronically signed by: Ryley Roberson MD 07/24/2024 03:31 PM EDT
--- NOTE | ~2024-07-24 | XR_ITS ---
EXAMINATION: XR CHEST CLINICAL INFORMATION: Chest discomfort. COMPARISON: Chest radiograph 04/04/2022. TECHNIQUE: 2 views of the chest were obtained. FINDINGS: Normal appearance of the cardiomediastinal silhouette and no focal consolidation, pleural effusion or pneumothorax. No acute osseous findings. Visualized upper abdomen is within normal limits. XR/XR chest 2V IMPRESSION: No acute cardiopulmonary findings. Electronically signed by: Lakshmi Hutchison MD 07/24/2024 11:12 AM EDT
--- NOTE | 2024-07-24 09:33 | ECG_ITS ---
Test Reason : chest pressure Blood Pressure : / mmHG Vent. Rate : 092 BPM Atrial Rate : 092 BPM P-R Int : 148 ms QRS Dur : 068 ms QT Int : 338 ms P-R-T Axes : 042 -19 047 degrees QTc Int : 417 ms Normal sinus rhythm Low voltage QRS Inferior infarct (cited on or before 20-OCT-2015) Cannot rule out Anterior infarct (cited on or before 20-OCT-2015) Abnormal ECG When compared with ECG of 04-APR-2022 11:47, Questionable change in initial forces of Anterior leads Referred By: Generic ED Physician Electronically Signed By:TIFFANY HURT
[2024-07-24 09:37] VITALS: BP 130/70; PULSE 80; RESP 16; TEMP 36.3; O2SAT 96; BMI 30.3
[2024-07-24 09:52] LABS: MANUAL DIFF FLAG NO
[2024-07-24 09:54] LABS: Basophils Percent Auto 0.5 % (0-2); Eosinophils Absolute Auto 0.2 X10*3/uL (0.0-0.4); Eosinophils Percent Auto 2.7 % (0-4); Hematocrit 45.6 % (37.0-47.0); Hemoglobin 15.7 g/dl (12.0-16.0); Imm Gran Abs Auto 0.04 X10*3/uL (0.00-0.03); Imm Gran Pct Auto 0.5 % (0.0-0.4); Lymphocytes Absolute Auto 1.8 X10*3/uL (1.2-4.9); Lymphocytes Percent Auto 23.3 % (20-40); Mean Corpuscular HGB Conc 34.4 g/dl (31.0-35.0); Mean Corpuscular Hemoglobin 28.5 pg (27.0-33.0); Mean Corpuscular Volume 82.9 fL (80.0-98.0); Mean Platelet Volume 8.7 fL (9.4-12.3); Monocytes Absolute Auto 0.6 X10*3/uL (0.1-1.2); Monocytes Percent Auto 7.7 % (2-11); Neutrophils Percent Auto 65.3 % (45-73); Platelet Count 241 X10*3/uL (160-400); Red Cell Distribution Width 12.9 % (11.0-16.0); White Blood Count 7.7 X10*3/uL (4.8-10.8)
[2024-07-24 10:09] LABS: Alanine Aminotransferase 18 U/L (0-31); Albumin Level 4.5 g/dL (3.5-5.0); Alkaline Phosphatase 70 U/L (39-117); Anion Gap 14 (12-20); Aspartate Amino Transferase 18 U/L (5-31); Bilirubin Total 0.7 mg/dL (0.0-1.0); Blood Urea Nitrogen 22 mg/dL (9-16); Calcium 9.7 mg/dL (8.4-10.2); Carbon Dioxide 28 mmol/L (22-29); Chloride 102 mmol/L (96-108); Creatinine Clr Calc Pharmacy 48.5; Estimated Glomerular Filt Rate > 60; Glucose Random 143 mg/dL (60-115); Sodium 140 mmol/L (135-145); Total Protein 7.7 g/dL (6.5-8.0)
[2024-07-24 10:23] LABS: Troponin-I High Sensitivity < 2.7 ng/L (<3.5-17.0)
[2024-07-24 10:31] LABS: Influenza A PCR NEGATIVE (Negative); Influenza B PCR NEGATIVE (Negative); Resp Syncy Virus RNA Qual PCR NEGATIVE (Negative); SARS COV2 PCR INHOUSE NEGATIVE (Negative)
[2024-07-24 11:12] VITALS: BP 127/70; PULSE 90; RESP 20; TEMP 36.6; O2SAT 97
--- NOTE | 2024-07-24 11:15 | PC.NURSE ---
does not have chest pain and the pain in the middle of chest discomfort is gone per patient. never had chest pain
--- NOTE | 2024-07-24 11:18 | ED.CHESTPAIN ---
HPI - Chest Pain General Chief Complaint: Chest Pain Stated Complaint: chest pressure SOB Time Seen by Provider: 07/24/24 11:18 Source: patient Mode of arrival: ambulatory Limitations: no limitations History of Present Illness ED Provider: Nida Shafer PA-C HPI narrative: Patient is a 74 year old assigned female at with a history of GERD, HTN, hiatal hernia, and DM presenting to the emergency department today with epigastric pain. Patient states that over the last 2 weeks she has had epigastric pain and is concerned something is wrong with her esophagus. Patient states that she was vomiting 2 weeks ago and felt as though something in her esophagus popped . Patient denies any dizziness, lightheadedness, nausea, vomiting, fever, chills, blurry vision, double vision, loss of vision, difficulty breathing, shortness of breath, back pain, night sweats, pain with urination, increased urinary frequency, increased urinary urgency, blood in her urine or stool, syncope or a near syncopal episode, recent trauma or falls, bowel incontinence, bladder incontinence, or any other complaints at this time. Onset (ago): week(s) Related Data Home Medications ?Medication ?Instructions ?Recorded ?Confirmed blood sugar diagnostic #10 ea 10/05/20 06/08/24 cholecalciferol (vitamin D3) 25 25 mcg PO DAILY 12/09/23 06/08/24 mcg (1,000 unit) capsule cyanocobalamin (vitamin B-12) 1,000 mcg PO DAILY 12/09/23 06/08/24 1,000 mcg capsule Previous Rx's ?Medication ?Instructions ?Recorded blood sugar diagnostic (Nadineyle #200 ea 03/28/23 Lite Strips) alclometasone 0.05 % topical cream 1 appl topical BID PRN itching #15 06/08/24 grams alendronate 70 mg tablet 70 mg PO QWEEK 12 weeks #12 tabs 06/08/24 amlodipine 5 mg tablet 5 mg PO DAILY 90 days #90 tabs 06/08/24 atorvastatin 10 mg tablet 10 mg PO DAILY #90 tabs 06/08/24 dulaglutide 1.5 mg/0.5 mL 1.5 mg (0.5 mL) subcut QWEEK #12 ea 06/08/24 subcutaneous pen injector empagliflozin 10 mg tablet 10 mg PO DAILY #90 tabs 06/08/24 (Jardiance) hydrochlorothiazide 25 mg tablet 25 mg PO DAILY 90 days #90 tabs 06/08/24 meloxicam 15 mg tablet 15 mg PO DAILY #90 tabs 06/08/24 metformin 500 mg tablet 1,000 mg (2 x 500 mg) PO BID #360 06/08/24 tabs omeprazole 20 mg capsule,delayed 20 mg PO DAILY #90 caps 06/08/24 release ramipril 10 mg capsule 10 mg PO DAILY #90 caps 06/08/24 Allergies Allergy/AdvReac Type Severity Reaction Status Date / Time penicillin V Allergy Unknown Pt was Verified 07/24/24 09:40 told she was allergic as a child. Review of Systems Constitutional: Constitutional: Reports no additional constitutional complaints, Denies chills, Denies fever(s) and Denies night sweats Eyes: Eyes: Reports no additional eye complaints, Denies blurry vision, Denies change in vision, Denies diplopia, Denies eye discharge, Denies loss of vision and Denies eye pain ENT: Denies dizziness Cardiovascular: Cardiovascular: Reports no additional cardiovascular complaints, Reports chest pain, Denies lightheadedness, Denies Loss of Consciousness and Denies dyspnea Respiratory: Respiratory: Reports no additional respiratory complaints and Denies dyspnea Gastrointestinal: Gastrointestinal: Reports no additional gastrointestinal complaints, Reports abdominal pain (epigastric pain), Denies melena, Denies hematochezia, Denies change in bowel habits and Denies change in stool character Genitourinary: Genitourinary: Denies hematuria, Denies urinary frequency, Denies dysuria, Denies urinary incontinence, Denies urinary hesitancy and Denies urinary urgency Musculoskeletal: Musculoskeletal: Reports no additional musculoskeletal complaints, Denies numbness and Denies tingling Neurologic: Denies dizziness, Denies loss of vision, Denies numbness and Denies tingling Psychiatric: Psychiatric: Reports no additional psychiatric complaints Endocrine: Endocrine: Reports no additional endocrine complaints Hematologic/Lymphatic: Hematologic/Lymphatic: Reports no additional hematologic/lymphatic complaints Allergic/Immunologic: Allergic/Immunologic: Reports no additional allergic/immunologic complaints PMFSH Past Medical History Attestation statement: The following information was validated with the patient. Source: old records reviewed and nursing notes reviewed Medical History Otitis media, chronic, bilateral Colon cancer screening Osteoporosis Diverticulitis Osteoarthritis, knee Type 2 diabetes mellitus with hyperglycemia Insomnia Vitamin D deficiency Hypercholesterolemia Pulmonary nodule GERD (gastroesophageal reflux disease) Obesity (BMI 30-39.9) Hypertension Fatty liver Surgical History History of knee replacement procedure of right knee History of section Family History Family History Father Hypertension Mother Ovarian cancer Sister Breast cancer Social History Social History Housing: Apartment Alcohol intake: never Patient Tobacco Use Status: Never used Tobacco Smoked in Last 30 Days: No e-Cigarette/Vaping Use: Never Used Second Hand Smoke Exposure: No Use of substances other than those prescribed or required for medical reasons: No Advance Directives: No Advance Directives Information Provided: Yes Do you have a plan to hurt others: No Plan Current occupational status: retired Cognitive needs: No Hearing needs: No Vision needs: Yes Physical Exam Vital Signs: Vital Signs: Last Vital Signs Temp 98.2 F 07/24/24 16:13 Pulse 88 07/24/24 16:13 Resp 16 07/24/24 16:13 BP 110/50 L 07/24/24 16:13 Pulse Ox 98 07/24/24 16:13 O2 Del Method Room Air 07/24/24 16:13 BMI result Body Mass Index 30.3 Const: General: cooperative, no acute distress, alert and awake Nutritional Appearance: well nourished Orientation/consciousness: patient oriented x3 Limitations: no limitations HEENT: Head: Yes normal to inspection and Yes atraumatic Ears: hearing grossly normal bilaterally and external ears normal General nose exam: Normal external nose present, no nasal discharge noted and no epistaxis Face and sinus: Yes normal facial exam, No abrasion and No laceration Mouth: Normal oral and palatal mucosa present, no drooling and no muffled voice Eyes: General: appearance normal, both eyes and all related structures Periorbital: periorbital findings normal Eyelids: Yes eyelids normal Conjunctivae: conjunctivae normal Pupils: Equal, round and reactive pupils present EOM: EOMs intact bilaterally Neck: Neck: Yes normal visual inspection, Yes full ROM and Yes no lymphadenopathy Chest: Other: pain with palpation of the sternum Chest palpation & inspection: normal inspection of the chest Resp: Effort & Inspection: normal respiratory effort and able to speak in complete sentences GI: Inspection: Yes normal to inspection Palpation (GI): Soft to palpation, not firm, nontender and no guarding Neuro: General: patient oriented x3 and moves all extremities Cranial nerves: Yes Equal, round and reactive pupils present Cognition (Neuro): normal cognition Extrem: General: Yes normal to inspection, Yes full ROM and Yes capillary refill normal Psych: Appearance: grossly normal Mental Status: mental status grossly normal Affect: normal affect Attitude: cooperative Thought process: Normal thought process present Thought content: Normal thought content present Insight: Good insight present (Psych) Medications Administered Discontinued Medications Generic Name Dose Route Start Last Admin Trade Name Freq PRN Reason Stop Dose Admin Diatrizoate Meglum/Diatrizoate Sod 30 ml 07/24/24 13:08 07/24/24 13:08 Diatrizoate Meglumine, Sodium 30 Ml Solution PO 07/24/24 13:09 30 ml ONCE ONE Administration Sucralfate 1 gm 07/24/24 11:47 07/24/24 12:19 Sucralfate Oral Suspension 1 Gm/10 Ml Oral.Susp PO 07/24/24 11:48 1 gm ONCE ONE Administration Medical Decision Making Medical Decision Making [facility] Narrative: Patient is a 74 year old assigned female at with a history of DM and HTN presenting to the emergency department today with epigastric and chest pain. Patient's physical exam was as noted in the physical exam portion of this note. Patient's blood work was unremarkable. Patient's EKG was unremarkable. Patient's chest x-ray showed no acute process. Patient's chest CT was read by radiology as no acute process. When I reviewed the patient's CT chest and compared it to her previous chest CT in 09/2017, I noticed some irregularity in the sternum that could represent a healing fracture. Given the patient's clinical presentation and HPI, I am suspicious during the vomiting episode 2 weeks ago, the patient fractured her sternum. She is hemodynamically stable at this time and does not require any intervention for this. However, given patient states the pain is worse with laying down and she describes other GERD like symptoms - I recommend she follow up with her GI specialist on an outpatient basis. I explained my physical exam findings as well as all test results to the patient. I answered all questions asked by the patient. Patient was given an incentive spirometer with instructions to avoid developing pneumonia in the presence of a possible healing sternal fracture. I stressed the importance of the patient taking her medication as directed (either prescribed or as the over the counter packaging recommends). I stressed the importance of the patient following up with her primary care provider and GI specialist. I stressed the importance of the patient returning to the emergency department immediately if her symptoms were to worsen or if she were to develop any dizziness, shortness of breath, difficulty breathing, chest pain, blurry vision, loss of vision, nausea, vomiting, abdominal pain, fever, chills, back pain, or any other complaints. Patient verbalized agreement and understanding with this treatment plan and discharge. Differential Diagnosis Differential Diagnoses: The differential diagnosis associated with the presentation includes NSTEMI STEMI Sternal fracture Esophageal tear GERD Admission/Observation Consideration of admission/observation: Escalation of care including admission/observation considered Patient would have been admitted to the hospital had her work up had any findings where hospital admission was appropriate and her clinical presentation warranted hospital admission. Lab Data [facility] Lab Attestation statement: I reviewed the patient's lab results. My interpretation of these results are in the [facility] Rationale portion of this note. 07/24/24 09:47 07/24/24 09:47 Labs: Lab Results 07/24/24 Range/Units 09:47 WBC 7.7 (4.8-10.8) X10*3/uL RBC 5.50 (4.20-5.50) X10*6/uL Hgb 15.7 (12.0-16.0) g/dl Hct 45.6 (37.0-47.0) % MCV 82.9 (80.0-98.0) fL MCH 28.5 (27.0-33.0) pg MCHC 34.4 (31.0-35.0) g/dl RDW 12.9 (11.0-16.0) % Plt Count 241 (160-400) X10*3/uL MPV 8.7 L (9.4-12.3) fL Immature Gran % (Auto) 0.5 H (0.0-0.4) % Neut % (Auto) 65.3 (45-73) % Lymph % (Auto) 23.3 (20-40) % Turner % (Auto) 7.7 (2-11) % Eos % (Auto) 2.7 (0-4) % Baso % (Auto) 0.5 (0-2) % Lymph # (Auto) 1.8 (1.2-4.9) X10*3/uL Turner # (Auto) 0.6 (0.1-1.2) X10*3/uL Eos # (Auto) 0.2 (0.0-0.4) X10*3/uL Baso # (Auto) 0.0 (0.0-0.2) X10*3/uL Abs Immat Gran (auto) 0.04 H (0.00-0.03) X10*3/uL Absolute Neuts (auto) 5.0 (2.0-8.3) x10*3/uL Absolute Nucleated RBC 0.000 (0.0-0.012) X10*3/uL Nucleated RBC % (auto) 0.0 (0.0-0.2) /100WBC Sodium 140 (135-145) mmol/L Potassium 4.0 (3.3-5.1) mmol/L Chloride 102 (96-108) mmol/L Carbon Dioxide 28 (22-29) mmol/L Anion Gap 14 (12-20) BUN 22 H (9-16) mg/dL Creatinine 0.88 (0.5-1.4) mg/dL Estim Creat Clear Calc 48.5 Estimated GFR > 60 Random Glucose 143 H (60-115) mg/dL Calcium 9.7 (8.4-10.2) mg/dL Total Bilirubin 0.7 (0.0-1.0) mg/dL AST 18 (5-31) U/L ALT 18 (0-31) U/L Alkaline Phosphatase 70 (39-117) U/L Troponin I High Sens < 2.7 (<3.5-17.0) ng/L Total Protein 7.7 (6.5-8.0) g/dL Albumin 4.5 (3.5-5.0) g/dL Influenza Type A (PCR) NEGATIVE (Negative) Influenza Type B (PCR) NEGATIVE (Negative) RSV RNA Qual (PCR) NEGATIVE (Negative) SARS-CoV-2 RNA (RT-PCR) NEGATIVE (Negative) Independent Interpretation I performed an independent interpretation of an: EKG, Plain X-Ray and CT Scan Interpretation: My interpretation is in agreement with the radiologist's impression of these imaging studies. EXAMINATION: CT CHEST WITHOUT CONTRAST CLINICAL INFORMATION: Esophagus pain COMPARISON: September 25, 2017 TECHNIQUE: Multidetector volumetric CT imaging of the chest was done. Axial MIP volume rendering provided. Sagittal and coronal reformatted images were obtained. Examination performed using diluted Gastrografin oral This CT examination was performed using dose optimization techniques as appropriate, variously including the following: *Automated exposure control *Adjustment of mA and/or kV according to patient size (this includes techniques or standardized protocols for targeted exams where dose is matched to indication/reason for exam; i.e. extremities or head) *Use of iterative reconstruction technique DLP: 203 mGy-cm FINDINGS: KINDERGARTNER: Unremarkable LUNGS: There are scattered punctate lung nodules since bilaterally with the largest in the left lower lobe seen on image 63 series 10 and measures 0.3 cm MEDIASTINUM: The mediastinum is normal. Esophagus is not dilated or obstructed. There is small hiatal hernia CORONARY ARTERY CALCIFICATION: Mild to moderate PLEURA: There is no pleural effusion. No pleural mass or thickening. AXILLA: No lymphadenopathy. UPPER ABDOMEN: Unremarkable. OSSEOUS STRUCTURES: There are hemangiomas in vertebral bodies of T9 and T7 and mild changes of degenerative spondylosis CT/CT chest wo IV con IMPRESSION: 1. Small hiatal hernia. 2. Multiple stable punctate lung nodules, all less than 4 mm. 3. 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 Fleischner guidelines were followed. Electronically signed by: Ryley Roberson MD 07/24/2024 03:31 PM EDT RP Dictated By: Ryley Roberson MD Signed By: Electronically signed by Ryley Roberson MD 07/24/24 1531 EXAMINATION: XR CHEST CLINICAL INFORMATION: Chest discomfort. COMPARISON: Chest radiograph 04/04/2022. TECHNIQUE: 2 views of the chest were obtained. FINDINGS: Normal appearance of the cardiomediastinal silhouette and no focal consolidation, pleural effusion or pneumothorax. No acute osseous findings. Visualized upper abdomen is within normal limits. XR/XR chest 2V IMPRESSION: No acute cardiopulmonary findings. Electronically signed by: Lakshmi Hutchison MD 07/24/2024 11:12 AM EDT RP Dictated By: Selina Hutchison Signed By: Electronically signed by Selina Hutchison 07/24/24 1112 Vent. Rate: 092 BPM Atrial Rate: 092 BPM P-R Int: 148 ms QRS Dur: 068 ms QT Int: 338 ms P-R-T Axes: 042 -19 047 degrees QTc Int: 417 ms Normal sinus rhythm Low voltage QRS Inferior infarct (cited on or before 20-OCT-2015) Cannot rule out Anterior infarct (cited on or before 20-OCT-2015) Abnormal ECG When compared with ECG of 04-APR-2022 11:47, Questionable change in initial forces of Anterior leads DD/ 0930 Radiology Impression Discussion of test interpretation with radiology: I have reviewed the radiologist's reading. Discharge Plan Discharge Clinical Impression: Acute epigastric pain Patient Disposition: Home, Self-Care Instructions: Epigastric Pain (ED) Additional Instructions: Follow up with your primary care provider and your GI specialist. Return to the emergency department immediately if your symptoms worsen or if you develop any dizziness, shortness of breath, difficulty breathing, chest pain, blurry vision, loss of vision, nausea, vomiting, abdominal pain, fever, chills, back pain, or any other complaints. Prescriptions: No Action (DME) FreeStyle Lite Strips Strip See Rx Instructions .ROUTE .MEDSUPPLY Qty: 200 3RF Rx Instructions: As directed check the BS BID (DME) FreeStyle Lite Strips Strip See Rx Instructions .ROUTE .MEDSUPPLY Qty: 10 Rx Instructions: As directed cholecalciferol (vitamin D3) 25 mcg (1,000 unit) capsule 25 mcg PO DAILY cyanocobalamin (vitamin B-12) 1,000 mcg capsule 1,000 mcg PO DAILY atorvastatin 10 mg tablet 10 mg PO DAILY Qty: 90 1RF amlodipine 5 mg tablet 5 mg PO DAILY 90 Days Qty: 90 2RF Jardiance 10 mg tablet 10 mg PO DAILY Qty: 90 3RF hydrochlorothiazide 25 mg tablet 25 mg PO DAILY 90 Days Qty: 90 2RF meloxicam 15 mg tablet 15 mg PO DAILY Qty: 90 3RF metformin 500 mg tablet 1,000 mg PO BID Qty: 360 3RF omeprazole 20 mg capsule,delayed release(DR/EC) 20 mg PO DAILY Qty: 90 3RF ramipril 10 mg capsule 10 mg PO DAILY Qty: 90 3RF dulaglutide 1.5 mg/0.5 mL pen injector 1.5 mg subcut QWEEK Qty: 12 3RF alclometasone 0.05 % cream 1 appl topical BID PRN (Reason: itching) Qty: 15 0RF alendronate 70 mg tablet 70 mg PO QWEEK 84 Days Qty: 12 2RF Referrals: Po,Lorenver O, MD [Primary Care Provider] - Michael Barragan MD [Physician] - Interventions: ED Discharge Assessment Last Done: 07/24/24 16:13 Discharge Date/Time: 07/24/24 16:14 Print Language: Occitan
[2024-07-24 12:00] VITALS: BP 107/56; PULSE 77; RESP 18; TEMP 36.5; O2SAT 93
[2024-07-24] MEDS: Sucralfate Oral Suspension 1 GM/10 ML ORAL.SUSP PO (12:19)
[2024-07-24] MEDS: Diatrizoate Meglumine, Sodium 30 ML SOLUTION PO (13:08)
[2024-07-24 15:41] VITALS: BP 113/67; PULSE 84; RESP 16; TEMP 36.8; O2SAT 95
[2024-07-24 16:13] VITALS: BP 110/50; PULSE 88; RESP 16; TEMP 36.8; O2SAT 98
== END 2024-07-24 16:14 | disposition home or self-care (01) ==
PROVIDERS: Emergency Medicine; Emergency Provider Emergency Medicine; PCP Internal Medicine
DX: R10.13 Epigastric pain (principal); Z03.818 Encounter for observation for suspected exposure to other biological agents ruled out; E11.9 Type 2 diabetes mellitus without complications; I10 Essential (primary) hypertension; E78.00 Pure hypercholesterolemia, unspecified; Z79.02 Long term (current) use of antithrombotics/antiplatelets; Z79.899 Other long term (current) drug therapy; Z79.84 Long term (current) use of oral hypoglycemic drugs
CPT/HCPCS: 0241U; 36415; 71046; 71250; 80053; 84484; 85025; 93005; 94010; 99284; 99285

== ENCOUNTER 2024-11-30 07:53 | Outpatient (REF) | payer MEDICARE, OTHER, SELFPAY ==
--- OUTSIDE RECORDS SUMMARY | 2024-11-30 07:55 | XMS_ITS | Patient Health Record ---
Author Organization [facility] Address [address] [place] [id number] Care Team Providers Care Scientific Informatics Leader Name Role Phone Tarun Aragon MD Primary Care Provider Michael Scott [phone] ALLERGIES No Known Allergies REASON FOR REFERRAL No Information MEDICATIONS Medication SIG (Take, Route, Frequency, Duration) Notes Start Date End Date Status metFORMIN HCl 500 MG Oral for 90 Active Jardiance 10 MG Oral for 90 Ac tive Simvastatin 20 MG Oral for 90 Active hydroCHLOROthiazide 25 MG Oral for 90 Active Omeprazole 20 MG Oral for 90 A ctive Ramipril 10 MG Oral for 90 Act silke Ondansetron 4 MG TAKE 1 TABLET BY MOUTH EVERY 8 HOURS NEEDED FOR NAUSEA AND VOMITING FOR 40 DAYS Oral for 40 Active amLODIPine Besylate 5 MG Oral for 90 Active Meloxicam 15 MG Oral for 90 Rare--just PRN Active FreeStyle Lite Test - In Vitro for 90 Active Trulicity 0.75 MG/0.5ML Subcutaneous for 84 Active Glimepiride 4 MG Oral for 90 A ctive IMMUNIZATIONS Vaccine Route Administration Date Status Comme nts Influenza Unknown 09/18/2022 Administered SOCIAL HISTORY Tobacco Use: Social History Observation Description Date Details (start date - stop date) Never Smoker NA - NA Sex Assigned At : Social History Observation Description Sex Assigned At Unknown Tobacco Use/Smoking Question Answer Notes Patient is a nonsmoker Alcohol Screen Question Answer Notes Did you have a drink containing alcohol in the p ast year? 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 [address] [place] [address] [id number] ALEXIS OLIVAREZ Self - patient is the insured MEDICAL (GENERAL) HISTORY Medical History History ICD Code DM HTN High cholesterol Diverticulitis Negative colonoscopy age 62 in [facility] ld Denies NH,CVA,Lung disease,renal disease GERD Surgical History Surgery Date(Month/Year) Right knee replacement
[2024-11-30 08:14] LABS: MANUAL DIFF FLAG NO
[2024-11-30 08:45] LABS: Basophils Absolute Auto 0.1 X10*3/uL (0.0-0.2); Basophils Percent Auto 0.8 % (0-2); Eosinophils Absolute Auto 0.4 X10*3/uL (0.0-0.4); Eosinophils Percent Auto 6.1 % (0-4); Hematocrit 44.2 % (37.0-47.0); Hemoglobin 14.7 g/dl (12.0-16.0); Imm Gran Abs Auto 0.03 X10*3/uL (0.00-0.03); Imm Gran Pct Auto 0.5 % (0.0-0.4); Lymphocytes Absolute Auto 1.5 X10*3/uL (1.2-4.9); Lymphocytes Percent Auto 24.7 % (20-40); Mean Corpuscular HGB Conc 33.3 g/dl (31.0-35.0); Mean Corpuscular Hemoglobin 28.1 pg (27.0-33.0); Mean Corpuscular Volume 84.5 fL (80.0-98.0); Mean Platelet Volume 9.2 fL (9.4-12.3); Monocytes Absolute Auto 0.5 X10*3/uL (0.1-1.2); Monocytes Percent Auto 8.5 % (2-11); Neutrophils Absolute Auto 3.5 x10*3/uL (2.0-8.3); Neutrophils Percent Auto 59.4 % (45-73); Platelet Count 208 X10*3/uL (160-400); Red Blood Count 5.23 X10*6/uL (4.20-5.50); Red Cell Distribution Width 12.7 % (11.0-16.0); White Blood Count 5.9 X10*3/uL (4.8-10.8)
[2024-11-30 08:51] LABS: Estimated Average Glucose 137 mg/dL; Hemoglobin A1C 172.1999 umol/L; Hemoglobin A1c % 6.4 % (<6.0); Total Hemoglobin (HGBA1C) 3668.8574 umol/L
[2024-11-30 09:29] LABS: Creatinine Urine 81.53 mg/dL; Microalbum/Creatinine Ratio Ur 7.3 ug/mg cr (<30)
[2024-11-30 09:31] LABS: Alanine Aminotransferase 22 U/L (0-31); Albumin Level 4.1 g/dL (3.5-5.0); Alkaline Phosphatase 49 U/L (39-117); Anion Gap 12 (12-20); Aspartate Amino Transferase 21 U/L (5-31); Bilirubin Total 0.5 mg/dL (0.0-1.0); Blood Urea Nitrogen 27 mg/dL (9-16); Calcium 10.2 mg/dL (8.4-10.2); Carbon Dioxide 27 mmol/L (22-29); Chloride 108 mmol/L (96-108); Cholesterol 173 mg/dL (<200); Estimated Glomerular Filt Rate > 60; Glucose Random 126 mg/dL (60-115); HDL Cholesterol 43 mg/dL (>40); LDL Cholesterol Calculated 91 mg/dL (<100); Potassium 4.4 mmol/L (3.3-5.1); Sodium 143 mmol/L (135-145); Triglycerides 197 mg/dL (<150)
[2024-11-30 09:35] LABS: Free T4 (Free Thyroxine) 0.93 ng/dL (0.71-1.85); Thyroid Stimulating Hormone 1.76 uIU/mL (0.32-4.0); Vitamin D 25-OH Total 48.6 ng/mL (>30)
[2024-11-30 09:52] LABS: Vitamin B12 432 pg/mL (200-900)
== END 2024-11-30 07:54 | disposition home or self-care (01) ==
LOC: HO.LAB 07:53
PROVIDERS: PCP Internal Medicine; Visit Provider Internal Medicine
DX: E11.65 Type 2 diabetes mellitus with hyperglycemia (principal); E78.00 Pure hypercholesterolemia, unspecified
CPT/HCPCS: 36415; 80053; 80061; 82043; 82306; 82570; 82607; 82746; 83036; 84439; 84443; 85025

== ENCOUNTER 2024-12-07 13:52 | Outpatient (AMB) | payer MEDICARE, OTHER, SELFPAY ==
[2024-12-07 14:28] VITALS: BP 140/78; PULSE 76; O2SAT 96; BMI 30.5
--- NOTE | 2024-12-07 14:28 | MHC.PC.OV ---
Vital Signs 12/07/24 14:28 Height 4 ft 11 in Weight 151 lb BMI 30.5 BP 140/78 H Blood Pressure Location Lt brachial Position Sitting Pulse 76 Pulse Source Pulse Oximeter Pulse Oximetry (%) 96 Oxygen Delivery Method Room Air Intake Visit Reasons: 6 mo f/u Allergies penicillin V Allergy (Unknown, Verified 12/07/24 14:28) Pt was told she was allergic as a child. Tobacco use date assessed: 12/07/24 Fall risk assessment: 1 Fall in past year Last assessed Fall Risk: 12/07/24 Dental Screening Dental Screen Date: 12/07/24 Did you have a dental visit in the last 12 months?: Yes Did you have a dental problem in the last 6 months where you did not have access to dental care?: No Was dental information given to patient?: Patient has dentist HPI 6 mo f/u HPI Details The patient is a 74-year-old female presenting with concerns regarding a recent head injury sustained from a fall. The fall occurred on the Saturday before ?s Fay, as the patient slipped on black ice, hitting her head against a metal bucket. She initially sought care at urgent care where a need for a CT scan was suggested due to the head injury, but decided against it after visiting a crowded ER and went home instead. The head laceration was bleeding profusely but was managed at home with a cloth to stop the bleeding, and peroxide application thereafter. Stitches were not obtained, and the wound has formed a scab and has reduced in bleeding. Additionally, the patient reports a past occurrence of a chest bone fracture in August after violent vomiting episode believed to be due to viral illness. Most recently, the patient underwent blood work, revealing an elevated Hemoglobin A1c of 6.4%, increased from a previous 6.2%, indicating deteriorating glycemic control. Further lab results showed dehydration with a BUN level of 27, though kidney function remains intact. The patient acknowledges poor water intake habits, especially during fasting. Further laboratory results indicate hypertriglyceridemia with current triglyceride levels at 197 mg/dL, improved from previous levels but still elevated. The patient's LDL cholesterol is well managed at 91 mg/dL due to ongoing cholesterol medication. The patient also adheres to a regimen for bone health, having been on bone medication since July. [facility] Medical History Otitis media, chronic, bilateral Colon cancer screening Osteoporosis Diverticulitis Osteoarthritis, knee Type 2 diabetes mellitus with hyperglycemia Insomnia Vitamin D deficiency Hypercholesterolemia Pulmonary nodule GERD (gastroesophageal reflux disease) Obesity (BMI 30-39.9) Hypertension Fatty liver Surgical History History of knee replacement procedure of right knee History of section Family History Father Hypertension Mother Ovarian cancer Sister Breast cancer Social History Housing: Apartment Alcohol intake: never Patient Tobacco Use Status: Never used Tobacco Tobacco use type: Cigarette e-Cigarette/Vaping Use: Never Used Second Hand Smoke Exposure: No Current occupational status: retired Cognitive needs: No Hearing needs: No Vision needs: Yes Questionnaire PHQ-9 Over the last 2 weeks, how often have you been bothered by any of the following problems? 1. Little interest or pleasure in doing things: not at all 2. Feeling down, depressed, or hopeless: not at all 3. Trouble falling or staying asleep, or sleeping too much: several days 4. Feeling tired or having little energy: not at all 5. Poor appetite or overeating: not at all 6. Feeling bad about yourself - or that you are a failure or have let yourself or your family down: not at all 7. Trouble concentrating on things, such as reading the newspaper or watching television: not at all 8. Moving or speaking so slowly that other people could have noticed. Or the opposite - being so fidgety or restless that you have been moving around a lot more than usual: not at all 9. Thoughts that you would be better off or of hurting yourself in some way: not at all Total score: 1 Depression Screening Interpretation: Negative Depression Screening Done: Yes 25393 - PHQ-9 Billing: Yes Source: Developed by Drs. Michael Harrington, Mary Ann Diop, Niels Greene and colleagues, with an educational leonid from [employer]. Thrive Questionnaire Date Thrive assessed: 12/07/24 I am a: Patient What is your living situation today?: I have a steady place to live Within the past 12 months, did the food you bought not last and you didn't have the money to get more?: Never true Within the past 12 months, did you worry whether your food would run out before you got money to buy more?: Never true Do you have trouble paying for medicines?: No Do you have trouble getting transportation to medical appointments?: No Do you have trouble paying your heating and electricity bill?: No Do you have trouble taking care of your child, family member or friend?: No Do you have trouble with day-to-day activities such as bathing, preparing meals, shopping, managing finances, etc.?: No Are you currently unemployed and looking for a job?: No Are you interested in more education?: No Currently or been in a relationship where the following occur: No concerns reported THRIVE Score: 0 AUDIT C Alcohol Use Questionnaire (AUDIT-C) 1. How often do you have a drink containing alcohol?: Never 3. How often do you have six or more drinks on one occasion?: Never Total Score: 0 OSCAR-7 AMB Questionnaire OSCRA-7 Date OSCAR - 7 assessed: 12/07/24 Feeling nervous, anxious, or on edge: 0 = Not at all Not being able to stop or control worryin = Not at all Worrying too much about different things: 0 = Not at all Trouble relaxin = Not at all Being so restless that it is hard to sit still: 0 = Not at all Becoming easily annoyed or irritable: 0 = Not at all Feeling afraid as if something awful might happen: 0 = Not at all Total OSCAR-7 score (0-4 normal; 5-9 mild; 10-14 moderate; 15-21 severe): 0 Source: Developed by Drs. Michael Harrington, Mary Ann Diop, Niels Greene and colleagues, with an educational leonid from [employer]. Physical exam (Primary Care) Vital Signs: Last Vital Signs Pulse 76 12/07/24 14:28 BP 140/78 H 12/07/24 14:28 Pulse Ox 96 12/07/24 14:28 Oxygen Delivery Method Room Air 12/07/24 14:28 BMI result Body Mass Index 30.5 Tobacco/Smoking Status: Tobacco use Status Tobacco use date assessed 12/07/24 12/07/24 14:31 Patient Tobacco Use Status Never used Tobacco 12/07/24 14:31 Tobacco use type Cigarette 12/07/24 14:31 e-Cigarette/Vaping Use Never Used 12/07/24 14:31 PHQ-9: PHQ-9 Score PHQ-9: Total score 1 12/07/24 15:14 Depression Screening Interpretation: Negative Thrive Assessment: Date of Thrive Assessment Date Thrive assessed 12/07/24 12/07/24 14:31 Currently or been in a relationship where the following occur: No concerns reported Const General: alert; No acute distress Eyes Conjunctivae: conjunctivae normal Resp Auscultation: clear to auscultation bilaterally Cardio Rate: regular rate Rhythm: regular rhythm GI Inspection: Yes normal to inspection Extrem General: Yes normal to inspection and No edema Coding Level of Care Code Est Pt Level 4 (53405) Complex EM visit Add On G2211 Diagnoses Type 2 diabetes mellitus with hyperglycemia, without long-term current use of insulin E11.65 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 use: without long-term use Hypercholesterolemia E78.00 Obesity (BMI 30-39.9) E66.9 Essential hypertension I10 Hypertension type: essential hypertension Gastroesophageal reflux disease without esophagitis K21.9 Esophagitis presence: without esophagitis Additional Codes PHQ-9 - 42066 - PHQ-9 Billing: Yes ([id number]) Assessment & Plan Assessment & Plan (1) Type 2 diabetes mellitus with hyperglycemia: Code(s): E11.65 - Type 2 diabetes mellitus with hyperglycemia Category: Medical Qualifiers: 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 use: without long-term use Qualified Code(s): E11.65 - Type 2 diabetes mellitus with hyperglycemia (2) Hypercholesterolemia: Code(s): E78.00 - Pure hypercholesterolemia, unspecified Category: Medical (3) Obesity (BMI 30-39.9): Code(s): E66.9 - Obesity, unspecified Category: Medical (4) Hypertension: Comment: Stress 2013- Code(s): I10 - Essential (primary) hypertension Category: Medical Qualifiers: Hypertension type: essential hypertension Qualified Code(s): I10 - Essential (primary) hypertension (5) GERD (gastroesophageal reflux disease): Code(s): K21.9 - Gastro-esophageal reflux disease without esophagitis Category: Medical Qualifiers: Esophagitis presence: without esophagitis Qualified Code(s): K21.9 - Gastro-esophageal reflux disease without esophagitis Plan - Maintain wound hygiene with regular cleaning; encourage monitoring for signs of infection. - Advise increased fluid intake to address dehydration, aiming for six to eight glasses of water daily. - Collection Systems Foreman on dietary modifications and regular physical activity to manage elevated Hemoglobin A1c and hypertriglyceridemia. - Continued adherence to current cholesterol medication; consider dietary measures to manage triglycerides. - Reinforce the importance of glycemic control and discuss implications of elevated A1c. - Remind to maintain annual wellness checks and preventive care, including regular eye examinations and bone density monitoring. - Encourage safe practices to prevent future falls, emphasizing environmental safety and cautious movement outdoors. - Continue bone health medication and follow scheduled assessments.
--- OUTSIDE RECORDS SUMMARY | 2024-12-07 16:16 | XMS_ITS | Patient Health Record ---
Author Organization [facility] Address [address] [place] [id number] Care Team Providers Care Process Manufacturing Engineer Name Role Phone Tarun Aragon MD Primary Care Provider Michael Scott [phone] ALLERGIES No Known Allergies REASON FOR REFERRAL [...] unspecified whether esophagitis present (K21.9) Active confirmed [id number] Problem Change in bowel habits (R19.4) Active confirmed 61961472 Problem Colon cancer screening (Z12.11) Active confirmed 000451390 Problem Diverticulosis of large intestine without perforation or abscess without bleeding (K57.30) Active confirmed Diverticul ar disease of colon (766986836) Problem Polyp of stomach and duodenum (K31.7) Active confirmed Benign neoplasm of stomach (97281522) Problem Gastroesophageal reflux disease (K21.9) Active confirmed Gastroesophagea l reflux disease (455064636) PLAN OF TREATMENT Pending Test Test Name Order Date Pathology 05/06/2023 Future Test Test Name Order Date UPPER GI ENDOSCOPY 03/01/2023 COLONOSCOPY 03/01/2023 Insurance Providers Payer Name Payer Address Payer Phone Subscriber Number Group Number Insured Name Patient Relationship to Insured Coverage Start Date Coverage End Date MEDICARE OF [place] [address] [place] [address] [phone] [id number] ALEXIS OLIVAREZ Self - patient is the insured [employer] [address] [place] [address] [id number] ALEXIS OLIVAREZ Self - patient is the insured MEDICAL (GENERAL) HISTORY Medical History History ICD Code DM HTN High cholesterol Diverticulitis Negative colonoscopy age 62 in [facility] ld Denies [place],CVA,Lung disease,renal disease GERD Surgical History Surgery Date(Month/Year) Right knee replacement
== END 2024-12-07 15:26 | disposition home or self-care (01) ==
PROVIDERS: PCP Internal Medicine; Visit Provider Internal Medicine
DX: E11.65 Type 2 diabetes mellitus with hyperglycemia (principal); E78.00 Pure hypercholesterolemia, unspecified; E66.811 Obesity, class 1; Z68.30 Body mass index [BMI] 30.0-30.9, adult; I10 Essential (primary) hypertension; K21.9 Gastro-esophageal reflux disease without esophagitis

== ENCOUNTER → 2024-12-07 13:52 | Outpatient (BNVA) | payer MEDICARE, OTHER, SELFPAY | PROVIDERS: PCP Internal Medicine; Visit Provider Internal Medicine | DX: E11.65 Type 2 diabetes mellitus with hyperglycemia (principal); E78.00 Pure hypercholesterolemia, unspecified; E66.9 Obesity, unspecified; I10 Essential (primary) hypertension; K21.9 Gastro-esophageal reflux disease without esophagitis | CPT/HCPCS: 96127; 99212 ==

== ENCOUNTER 2025-04-21 09:37 | Outpatient (REF) | payer MEDICARE, OTHER, SELFPAY | END 2025-04-21 09:38 | disposition home or self-care (01) | LOC: HO.MAMMO 09:37 | PROVIDERS: PCP Internal Medicine; Visit Provider Internal Medicine | DX: Z12.31 Encounter for screening mammogram for malignant neoplasm of breast (principal) | CPT/HCPCS: 77063; 77067 ==

== ENCOUNTER → 2025-04-21 10:00 | Outpatient (BNV) | payer MEDICARE, OTHER, SELFPAY | PROVIDERS: PCP Internal Medicine; Visit Provider Internal Medicine | DX: Z12.31 Encounter for screening mammogram for malignant neoplasm of breast (principal) | CPT/HCPCS: 77063; 77067 ==

== ENCOUNTER 2025-08-09 08:31 | Outpatient (REF) | payer MEDICARE, OTHER, SELFPAY ==
--- OUTSIDE RECORDS SUMMARY | 2022-08-19 14:35 | XMS_ITS | Encounter Summary ---
Author Organization [facility] Address [address] [facility] [address] [place] [address] Phone Care Team Providers Care Production Aide Name Role Phone Tarun Aragon MD Primary Care Provider [phone] Encounter Details Date Type Department Care Team (Late st Contact Info) Description 08/19/2022 2:35 PM EDT Hospital Encounter [facility] [address] [place] [address] Inna Mcintyre CNP [address] [place] [address] [email or web address] Social History Tobacco Use Types Packs/Day Years [...] abnormality. IMPRESSION: No acute abnormality. Inna Mcintyre INDUSTRIAL ELECTRICAL TECHNICIAN IMG XR CHEST Final Resul t documented in this encounter Visit Diagnoses Not on filedocumented in this encounter Additional Health Concerns Infection Onset Date Last Indicated Resolved Time CoV-Risk 08/19/2022 08/19/2022 08/20/2022 11:1 3 AM EDT COVID-19 08/19/2022 08/19/2022 09/09/2022 1:21 AM EDT documented as of this encounter Care Teams Production Aide Relationship Specialty Start Date End Date Tarun Aragon MD [address] [place] [address] PCP - General Internal Medicine 08/19/22 documented as of this encounter Additional Source Comments The information contained in this document represents components of the legal health record. It is not the complete legal health record.[facility]
--- NOTE | ~2025-08-09 | XR_ITS ---
EXAMINATION: XR KNEE, LEFT CLINICAL INFORMATION: M25.562 - Pain in left knee COMPARISON: None available. TECHNIQUE: Three views of the left knee. FINDINGS: Changes from total knee arthroplasty are present on the right. The left knee joint demonstrates moderate to severe narrowing of the medial joint space. There are tricompartmental marginal osteophytes. No joint effusion is evident. There is mild lateral patellar tilt. XR/XR knee LT 3V IMPRESSION: Moderate to severe osteoarthritis with mild lateral patellar tilt. Electronically signed by: Jorge Chávez MD 08/09/2025 11:38 AM EDT
--- OUTSIDE RECORDS SUMMARY | 2025-08-09 09:31 | XMS_ITS | Clinical Summary ---
Author Organization [facility] Address [address] [place], [place] [id number] Phone Care Team Providers Care Commercial Litigation Associate Name Role Phone Tarun Aragon MD Primary Care Provider [phone] Allergies No known active allergies Medications amLODIPine (NORVASC) 5 MG tablet 07/28/2021 Active blood sugar diagnostic (GLUCOSE BLOOD) Strp strips 10/13/2021 Active TRULICITY 0.75 mg/0.5 mL subcutaneous injection 06/04/2022 Active empagliflozin (JARDIANCE) 10 mg tablet 03/16/2022 Active glimepiride (AMARYL) 4 MG tablet 08/18/2021 Active hydroCHLOROthiazi de (HYDRODIURIL) 25 MG tablet 07/28/2021 Active metFORMIN (GLUCOPHAGE) 500 MG tablet 10/30/2021 Active omeprazole (PRILOSEC) 20 MG capsule 07/09/2022 Active ramipriL (ALTACE) 10 MG capsule 02/28/2022 Activ e meloxicam (MOBIC) 15 MG tablet Take 15 mg by mouth as needed. 09/12/2022 Active simvastatin (ZOCOR) 20 MG tablet 06/19/2023 Active Active Problems No known active problems Immunizations Immunization Administration Dates Next Due COVID-19 (Pre-09/23) Pfizer Vaccine, mRNA, PF 09/14/2021 INFLUENZA, SPLIT VIRUS, TRIV ALENT W/ PRESERVATIVE IM 10/12/2015 Influenza High-Dose Quadriva lent Preservative Free IM 09/13/2022 Influenza High-Dose Trivalen t Preservative Free IM 10/16/2019,09/18/2017 Influenza Quadrivalent Preservative Free IM 10/02 Influenza Trivalent Adjuvant ed Preservative free IM 09/19/2018 Pneumococcal conjugate PCV20 01/14/2023 Pneumococcal polysaccharide PPSV23 03/25/2017, Tdap 05/02/2016 Zoster recombinant 05/13/2019,02/04/2019, 019 Social History Tobacco Use Types Packs/Day Years Used Date Smoking Tobacco: Never Smokeless Tobacco: Never Tobacco Cessation:Counseling Given: Not Answered Alcohol Use Standard Drinks/Week Comments Not Currently [...] on file Sexual Orientation Not on file Last Filed Vital Signs Vital Sign Reading Time Taken Comments Blood Pressure 118/81 09/04/2023 9:43 AM EDT Pulse 75 09/04/2023 9:43 AM EDT Temperature 36.7 C (98.1 F) 09/04/2023 9:43 AM EDT Respiratory Rate 18 09/04/2023 9:43 AM EDT Oxygen Saturation 97% 09/04/2023 9:43 AM EDT Inhaled Oxygen Concentration - - Weight 68.5 kg (151 lb) 09/04/2023 9:43 AM EDT Height 149.9 cm (4' 11 ) 08/10/2023 12:35 PM EDT Body Mass Index 30.5 08/10/2023 12:35 PM EDT Plan of Treatment Health Maintenance Due Date Last Done Comments CREATININE LEVEL 1952 LIPID PANEL 1952 POTASSIUM LEVEL 1952 DEPRESSION SCREENING 1964 HEPATITIS C SCREENING 1970 MAMMOGRAM 1992 COLOGUARD 1997 COLONOSCOPY 1997 COLORECTAL CANCER SCREENING 1997 FIT TEST 1997 FOBT 1997 SIGMOIDOSCOPY 1997 VIRTUAL COLONOSCOPY 1997 RSV VACCINE (1 - Risk 60-74 years 1-dose series) 2012 OSTEOPOROSIS SCREENING INITIAL (ONE-TIME) 2017 INFLUENZA VACCINE (#1) 2025 , 10/13/2021, 10/16/2019, Additional history exists COVID-19 VACCINE (2024- season) 2025 03/12/2022, 09/14/2021, 02/01/2021, Additional history exists Adult Td,Tdap Booster 05/02/2026 05/02/2016 ZOSTER VACCINES Completed 05/13/2019, 05/2019, 12/11/2018 PNEUMOCOCCAL VACCINES (50+ years) Completed 01/14/2023, 03/25/2017, 12/05/2015 SMOKING STATUS SCREENING (Once After 26 Yrs) Completed 09/04/2023 HEPATITIS A VACCINES Aged Out No long er eligible based on patient's age to complete this topic HIB VACCINES Aged Out No longer eligi ble based on patient's age to complete this topic MENINGOCOCCAL VACCINES (ACWY) Aged Out No longer eligible based on patient's age to complete this topic MENINGOCOCCAL VACCINES (B) Aged Out N o longer eligible based on patient's age to complete this topic Medical Devices Not on file Insurance MEDICARE PART A & B [employer] MEDICARE SUPPLEMENT MEDICARE PART A & [place] [address] [place] [address] MEDICARE SUPPLEMENT MEDICARE PART A & B Member Subscriber Plan / Payer (Ef fective 2017-Present) Name:Cassi Reddy Member ID:[id number] Relation to Subscriber:Self Name:Cassi Reddy Subscriber ID:[id number] Payer ID:[id number] Group ID:Not on file Type:Medicare Address: [employer] [id number] FOR LIFE MEDICARE SUPPLEMENT MEDICARE PART A & B FOR LIFE MEDICARE SUPPLEMENT MEDICARE PART A & B Member Subscriber Plan / Payer (Ef fective 2017-Present) Name:Cassi Reddy Member ID:[id number] Relation to Subscriber:Self Name:Cassi Reddy Subscriber ID:[id number] Payer ID:[id number] Group ID:Not on file Type:Medicare Address: [employer] [address] [place] [phone] FOR LIFE MEDICARE SUPPLEMENT MEDICARE PART A & B FOR LIFE MEDICARE SUPPLEMENT Member Subscriber Plan / Payer ( fective 2017-Present) Name:Cassi Reddy Relation to Subscriber:Spouse Name:JODI REDDY Date of :1958 Address: [address] [place] [id number] Payer ID:[id number] (NAIC) Group ID:Not on file [place]: [place] [phone] MEDICARE PART A & B FOR LIFE MEDICARE SUPPLEMENT MEDICARE PART A & B FOR LIFE MEDICARE SUPPLEMENT MEDICARE PART A & B FOR LIFE MEDICARE SUPPLEMENT Care Teams Commercial Litigation Associate Relationship Specialty Start Date End Date Tarun Aragon MD [address] [place] [address] PCP - General Internal Medicine 08/19/22 Additional Source Comments The information contained in this document represents components of the legal health record. It is not the complete legal health record.[facility]
== END 2025-08-09 08:32 | disposition home or self-care (01) ==
LOC: HO.HOSX 08:31
PROVIDERS: Visit Provider Orthopaedic Surgery
DX: M17.12 Unilateral primary osteoarthritis, left knee (principal); E11.40 Type 2 diabetes mellitus with diabetic neuropathy, unspecified; Z96.651 Presence of right artificial knee joint; Z79.1 Long term (current) use of non-steroidal anti-inflammatories (NSAID)
CPT/HCPCS: 73562; 99202

== ENCOUNTER 2025-08-09 10:40 | Outpatient (AMB) | payer MEDICARE, OTHER, SELFPAY ==
[2025-08-09 10:53] VITALS: BMI 30.5
--- NOTE | 2025-08-09 10:53 | MHC.OFFVIS ---
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 Salomon. Patient reports that she has had left knee pain for about a year but worsening about 6 weeks ago. She reports that at this time she needed to use crutches due to significant pain. No previous injections or therpies. He pain comes and goes - when it increases she takes Meloxicam and utilizes heat appication which helps. Allergies penicillin V Allergy (Unknown, Verified 08/09/25 10:56) Pt was told she was allergic as a child. 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 Salomon. Patient reports that she has had left knee pain for about a year but worsening about 6 weeks ago. She reports that at this time she needed to use crutches due to significant pain. He pain comes and goes - when it increases she takes Meloxicam and utilizes heat appication which helps. She was told years ago that she needed a left knee replacement when she got her right knee replaced but she was doing okay so no surgery was pursued. Now she states she can walk very short distances only. She is diabetic. She would like to be able to walk comfortably without thinking about knee pain. [facility] Medical History Otitis media, chronic, bilateral Colon cancer screening Osteoporosis Diverticulitis Osteoarthritis, knee Type 2 diabetes mellitus with hyperglycemia Insomnia Vitamin D deficiency Hypercholesterolemia Pulmonary nodule GERD (gastroesophageal reflux disease) Obesity (BMI 30-39.9) Hypertension Fatty liver Surgical History History of knee replacement procedure of right knee History of section Family History Father Hypertension Mother Ovarian cancer Sister Breast cancer Social History Housing: Apartment Alcohol intake: never Patient Tobacco Use Status: Never used Tobacco Tobacco use type: Cigarette e-Cigarette/Vaping Use: Never Used Second Hand Smoke Exposure: No Current occupational status: retired Cognitive needs: No Hearing needs: No Vision needs: Yes Physical Exam Vital Signs: BMI result Body Mass Index 30.5 Const General: cooperative, healthy appearing, no acute distress, well developed and alert HEENT Head: Yes normal to inspection, Yes normocephalic and Yes atraumatic Mouth: moist mucous membranes Eyes General: appearance normal, both eyes and all related structures EOM: EOMs intact bilaterally Chest Other: no audible wheezing. Resp Other: No audible wheezing Effort & Inspection: normal respiratory effort Cardio Other: Radial pulse palpable with no rythmic abnormalities Back/Spine/Pelvis Cervical Spine: normal cervical lordosis Skin General skin exam: no rashes or lesions noted Neuro General: no focal motor deficits Extrem Other: Left knee with 0-125 degrees motion. Stable to varus and valgus stress. She has tenderness to palpation the left tibial plateau and retropatellar lateral facet. There is no effusion. Psych Appearance: grossly normal and well kempt Mental Status: mental status grossly normal Speech and movement: Normal speech and movement present Affect: normal affect Attitude: cooperative Results Reviewed Results Reviewed: I personally reviewed relevant radiographs. Right total knee arthroplasty in expected post operative position with no hardware complications or evidence of loosening Left knee with severe varus pattern OA affecting the anterior and medial compartment. Assessment & Plan Assessment & Plan (1) Osteoarthritis of left knee: Code(s): M17.12 - Unilateral primary osteoarthritis, left knee Category: Medical Plan: This is a 75-year-old woman with severe osteoarthritis of the left knee. I recommend injections to start as she has not had any recent treatment. Her ambulatory capacity is diminished and she does have severe OA. She is also diabetic with diabetic neuropathy and I do not recommend injecting steroids in his scenario. I have recommended viscosupplementation. (2) Diabetic neuropathy: Code(s): E11.40 - Type 2 diabetes mellitus with diabetic neuropathy, unspecified Category: Medical Plan: Steroid injections not appropriate Orders: Orders XR knee LT 3V Today M25.562 - Pain in left knee Coding Level of Care Code New Pt Level 4 (83332) Diagnoses Osteoarthritis of left knee M17.12 Diabetic neuropathy E11.40
== END 2025-08-09 11:14 | disposition home or self-care (01) ==
LOC: HO.HOS 10:41
PROVIDERS: PCP Internal Medicine; Visit Provider Orthopaedic Surgery
DX: M17.12 Unilateral primary osteoarthritis, left knee (principal); E11.40 Type 2 diabetes mellitus with diabetic neuropathy, unspecified
CPT/HCPCS: 99204

== ENCOUNTER → 2025-08-09 10:42 | Outpatient (BNV) | payer MEDICARE, OTHER, SELFPAY | PROVIDERS: Visit Provider Radiology Diagnostic Radiology | DX: M17.12 Unilateral primary osteoarthritis, left knee (principal) | CPT/HCPCS: 73562 ==

== ENCOUNTER 2025-08-17 13:29 | Emergency (ER) | payer MEDICARE, OTHER, SELFPAY ==
--- OUTSIDE RECORDS SUMMARY | 2022-08-19 14:35 | XMS_ITS | Encounter Summary ---
Author Organization [facility] Address [address] [facility] [address] [place] [phone] Phone Care Team Providers Care Secondary History Teacher Name Role Phone Tarun Aragon MD Primary Care Provider [phone] Encounter Details Date Type Department Care Team (Late st Contact Info) Description 08/19/2022 2:35 PM EDT Hospital Encounter [facility] [address] [place] [address] Inna Mcintyre CNP [address] [place] [address] [email or web address] Social History Tobacco Use Types Packs/Day Years [...] abnormality. IMPRESSION: No acute abnormality. Inna Mcintyre SENIOR HARDWARE ENGINEER IMG XR CHEST Final Resul t documented in this encounter Visit Diagnoses Not on filedocumented in this encounter Additional Health Concerns Infection Onset Date Last Indicated Resolved Time CoV-Risk 08/19/2022 08/19/2022 08/20/2022 11:1 3 AM EDT COVID-19 08/19/2022 08/19/2022 09/09/2022 1:21 AM EDT documented as of this encounter Care Teams Secondary History Teacher Relationship Specialty Start Date End Date Tarun Aragon MD [address] [place] [address] PCP - General Internal Medicine 08/19/22 documented as of this encounter Additional Source Comments The information contained in this document represents components of the legal health record. It is not the complete legal health record.[facility]
--- NOTE | ~2025-08-17 | XR_ITS ---
CLINICAL HISTORY: pain Radiographs of the lumbar spine, 3 views, 6 images Comparison: None available Findings: 5 mm anterolisthesis of L4 on L5, degenerative. No fracture. The vertebral body heights are preserved. Severe intervertebral disc space narrowing at L5/S1 with mild endplate osteophytosis and sclerosis. There is otherwise mild multilevel intervertebral disc space narrowing with mild endplate osteophytosis. Moderate lower lumbar facet hypertrophy. Vascular calcifications. Calcification in the pelvis could be a calcified degenerated fibroid. Impression: No acute findings. Grade 1 anterolisthesis of L4 on L5, degenerative. Moderate to severe lower lumbar degenerative change. This document has been electronically signed by: Meagan Boyd MD on 08/17/2025 18:59:11
--- NOTE | ~2025-08-17 | XR_ITS ---
CLINICAL HISTORY: pain Radiographs of the thoracic spine, 2 views, 5 images Comparison: CT/SR - CT CHEST WITHOUT IV CONTRAST - 07/24/24 12:25 EDT Findings: There is normal alignment. No fracture. The vertebral body heights are preserved. There is [id number] multilevel intervertebral disc space narrowing with mild] endplate osteophytosis and sclerosis. Vascular calcifications. Impression: No acute findings. Moderate degenerative change. This document has been electronically signed by: Meagan Boyd MD on 08/17/2025 18:56:38
[2025-08-17 14:15] VITALS: BP 159/86; PULSE 82; RESP 18; TEMP 36.5; O2SAT 97; BMI 30.7
--- NOTE | 2025-08-17 14:16 | ED.GENADULT ---
HPI - General Adult General Chief complaint: Back Pain/Injury Stated complaint: Lower back pain Time Seen by Provider: 08/17/25 17:07 Source: patient, RN notes reviewed and old records reviewed Mode of arrival: ambulatory Limitations: no limitations History of Present Illness ED Provider: Maya HPI narrative: 75-year-old female with a past medical history significant for type 2 diabetes, hyperlipidemia, GERD, obesity, hypertension presents for evaluation of right flank pain Patient reports that she has had pain to her right mid to lower back for the last 2 months or so. She denies any recent injury She does report a remote history of a fall that cause ?3 fractured vertebrae. ? She states this was over 5 years ago Her pain has been steady but worse with movement. She reports that she has pain while lying on her back at night She has pain when she twists to her left Her pain sometimes radiates lower down to her buttocks but does not go into her leg Denies any numbness, tingling, weakness. She has no abdominal pain or urinary symptoms She has tried meloxicam with minimal improvement. She reports some improvement with ice and he Related Data Home Medications ?Medication ?Instructions ?Recorded ?Confirmed blood sugar diagnostic #10 ea 10/05/20 06/08/24 cholecalciferol (vitamin D3) 25 25 mcg PO DAILY 12/09/23 06/08/24 mcg (1,000 unit) capsule cyanocobalamin (vitamin B-12) 1,000 mcg PO DAILY 12/09/23 06/08/24 1,000 mcg capsule Previous Rx's ?Medication ?Instructions ?Recorded blood sugar diagnostic (FreeStyle #200 ea 03/28/23 Lite Strips) alclometasone 0.05 % topical cream 1 appl topical BID PRN itching #15 06/08/24 grams empagliflozin 10 mg tablet 10 mg PO DAILY #90 tabs 06/08/24 (Jardiance) metformin 500 mg tablet 1,000 mg (2 x 500 mg) PO BID #360 06/08/24 tabs omeprazole 20 mg capsule,delayed 20 mg PO DAILY #90 caps 06/08/24 release ramipril 10 mg capsule 10 mg PO DAILY #90 caps 06/08/24 atorvastatin 10 mg tablet 10 mg PO DAILY #90 tabs 11/18/24 alendronate 70 mg tablet 70 mg PO QWEEK 12 weeks #12 tabs 01/19/25 amlodipine 5 mg tablet 5 mg PO DAILY 90 days #90 tabs 06/03/25 hydrochlorothiazide 25 mg tablet 25 mg PO DAILY 90 days #90 tabs 06/03/25 dulaglutide 1.5 mg/0.5 mL 1.5 mg (0.5 mL) subcut QWEEK #12 ea 06/18/25 subcutaneous pen injector meloxicam 15 mg tablet 15 mg PO DAILY #90 tabs 06/18/25 baclofen 5 mg tablet 5 mg PO TID PRN muscle spasm #15 08/17/25 tabs Allergies Allergy/AdvReac Type Severity Reaction Status Date / Time penicillin V Allergy Unknown Pt was Verified 08/17/25 14:18 told she was allergic as a child. Review of Systems Constitutional: Constitutional: Denies body ache(s), Denies chills, Denies fever(s) and Denies headache(s) Eyes: Eyes: Denies blurry vision ENT: Denies vertigo, Denies dizziness and Denies headache(s) Cardiovascular: Cardiovascular: Denies chest pain and Denies dyspnea on exertion Respiratory: Respiratory: Denies cough and Denies dyspnea on exertion Gastrointestinal: Gastrointestinal: Denies abdominal pain, Denies nausea and Denies vomiting Genitourinary: Genitourinary: Denies difficulty voiding, Denies dysuria and Denies pelvic pain Musculoskeletal: Musculoskeletal: Reports back pain, Denies numbness, Denies radiating pain into limb, Reports stiffness and Denies tingling Integumentary/Breasts: Skin/Breast: Denies rash Neurologic: Denies vertigo, Denies dizziness, Denies headache(s), Denies numbness and Denies tingling PMFSH Past Medical History Medical History Otitis media, chronic, bilateral Colon cancer screening Osteoporosis Diverticulitis Osteoarthritis, knee Type 2 diabetes mellitus with hyperglycemia Insomnia Vitamin D deficiency Hypercholesterolemia Pulmonary nodule GERD (gastroesophageal reflux disease) Obesity (BMI 30-39.9) Hypertension Fatty liver Surgical History History of knee replacement procedure of right knee History of section Family History Family History Father Hypertension Mother Ovarian cancer Sister Breast cancer Social History Social History Housing: Apartment Alcohol intake: never Patient Tobacco Use Status: Never used Tobacco Tobacco use type: Cigarette e-Cigarette/Vaping Use: Never Used Second Hand Smoke Exposure: No Advance Directives: No Advance Directives Information Provided: No Current occupational status: retired Cognitive needs: No Hearing needs: No Vision needs: Yes Physical Exam ED Vital Signs: Vital Signs - 24 hr 08/17/25 14:15 Temperature 97.7 F Pulse Rate 82 Respiratory Rate 18 Blood Pressure 159/86 H Pulse Oximetry 97 Oxygen Delivery Method Room Air BMI result Body Mass Index 30.7 Const General: healthy appearing, comfortable, no acute distress, alert and awake Nutritional Appearance: well nourished Orientation/consciousness: patient oriented x3 HENMT Head: Yes normocephalic and Yes atraumatic Eyes Eyelids: Yes eyelids normal Conjunctivae: conjunctivae normal Sclerae: sclerae normal Corneas: corneas normal Pupils: Equal, round and reactive pupils present EOM: EOMs intact bilaterally Neck Neck: Yes full ROM Resp Effort & Inspection: normal respiratory effort, able to speak in complete sentences and not labored GI Inspection: No distended Palpation (GI): Soft to palpation, not firm, nontender, no guarding and not rigid Back/Spine/Pelvis Other: Tenderness to the right thoracic and lumbar paraspinous region. No vertebral tenderness. Straight leg raise negative on right. Skin General skin exam: elasticity normal Neuro General: patient oriented x3 Cranial nerves: Yes Equal, round and reactive pupils present and Yes Bilaterally intact EOM present Cognition (Neuro): normal cognition Extrem Other: Moving all extremities well without any obvious deformities Course Course Course Narrative: This is an RME: Additional HPI, ROS, PE not included below will be deferred to primary provider. RME assessment and note performed by: Lalita Smith PA-C This is a [id number], history of GERD, HTN, hiatal hernia, and DM who presents to the ER with complaints of right sided flank pain. Reports soreness for several days. Worsens with movement. Reports that she does get this pain intermittently for the last several months Plan: Labs, UA, further ER eval needed Medical Decision Making Medical Decision Making MDM Narrative: 75-year-old female presents for evaluation of right-sided back pain. Her pain has been present for a couple of months. She denies any abdominal pain, chest pain, urinary complaints. Her pain is worse with movement and reproducible on exam. This is most likely musculoskeletal in origin. Her labs are reassuring. Urinalysis shows high specific gravity and glucose but no evidence of hematuria, proteinuria or pyuria. There has not been any recent injury but the patient reports that she has not had imaging of her spine in many years. We will get an x-ray of the thoracic and lumbar spine. Differential Diagnosis Differential Diagnoses: The differential diagnosis associated with the presentation includes Muscle strain Contusion Constipation Compression fracture Radiculopathy Lab Data MDM Lab Attestation statement: I reviewed the patient's lab results. No leukocytosis or anemia. Normal platelet count. No significant electrolyte abnormalities warranting dimension. Random glucose of 104 08/17/25 14:30 08/17/25 14:30 Labs: Lab Results 08/17/25 Range/Units 14:30 WBC 7.7 (4.8-10.8) X10*3/uL RBC 5.19 (4.20-5.50) X10*6/uL Hgb 15.0 (12.0-16.0) g/dl Hct 43.6 (37.0-47.0) % MCV 84.0 (80.0-98.0) fL MCH 28.9 (27.0-33.0) pg MCHC 34.4 (31.0-35.0) g/dl RDW 12.8 (11.0-16.0) % Plt Count 201 (160-400) X10*3/uL MPV 8.8 L (9.4-12.3) fL Immature Gran % (Auto) 0.3 (0.0-0.4) % Neut % (Auto) 59.7 (45-73) % Lymph % (Auto) 29.8 (20-40) % [place] % (Auto) 7.7 (2-11) % Eos % (Auto) 1.8 (0-4) % Baso % (Auto) 0.7 (0-2) % Lymph # (Auto) 2.3 (1.2-4.9) X10*3/uL [place] # (Auto) 0.6 (0.1-1.2) X10*3/uL Eos # (Auto) 0.1 (0.0-0.4) X10*3/uL Baso # (Auto) 0.1 (0.0-0.2) X10*3/uL Abs Immat Gran (auto) 0.02 (0.00-0.03) X10*3/uL Absolute Neuts (auto) 4.6 (2.0-8.3) x10*3/uL Absolute Nucleated RBC 0.000 (0.0-0.012) X10*3/uL Nucleated RBC % (auto) 0.0 (0.0-0.2) /100WBC Sodium 144 (135-145) mmol/L Potassium 3.6 (3.3-5.1) mmol/L Chloride 107 (96-108) mmol/L Carbon Dioxide 28 (22-29) mmol/L Anion Gap 13 (12-20) BUN 22 H (9-16) mg/dL Creatinine 0.85 (0.5-1.4) mg/dL Estim Creat Clear Calc 49.7 Estimated GFR > 60 Random Glucose 104 (60-115) mg/dL Calcium 9.8 (8.4-10.2) mg/dL Magnesium 1.7 (1.6-2.6) mg/dL Total Bilirubin 0.4 (0.0-1.0) mg/dL Direct Bilirubin 0.1 (0.0-0.5) mg/dL AST 23 (5-31) U/L ALT 25 (0-31) U/L Alkaline Phosphatase 54 (39-117) U/L Total Protein 7.1 (6.5-8.0) g/dL Albumin 4.7 (3.5-5.0) g/dL Urine Color Yellow Urine Appearance Clear Urine pH 5.0 (5.0-9.0) Ur Specific [place] >= 1.030 H (1.005-1.025) Urine Protein Negative (Neg-Trace) mg/dL Urine Glucose (UA) >=1000 H (Negative) mg/dL Urine Ketones Negative (Negative) mg/dL Urine Blood Negative (Negative) Urine Nitrite Negative (Negative) Ur Leukocyte Esterase Negative (Negative) Urine RBC 0-2 (0-2) /HPF Urine WBC 0-5 (0-5) /HPF Ur Squamous Epith Cells 0-2 (0-2) /HPF Urine Bacteria None Seen (None Seen) Hyaline Casts 3-5 (0-2) /LPF Radiology Impression Discussion of test interpretation with radiology: I have reviewed the radiologist's reading. Radiologist Impression: Findings: There is normal alignment. No fracture. The vertebral body heights are preserved. There is [id number] multilevel intervertebral disc space narrowing with mild] endplate osteophytosis and sclerosis. Vascular calcifications. Impression: No acute findings. Moderate degenerative change. This document has been electronically signed by: Meagan Boyd MD on 08/17/2025 18:56:38 Findings: 5 mm anterolisthesis of L4 on L5, degenerative. No fracture. The vertebral body heights are preserved. Severe intervertebral disc space narrowing at L5/S1 with mild endplate osteophytosis and sclerosis. There is otherwise mild multilevel intervertebral disc space narrowing with mild endplate osteophytosis. Moderate lower lumbar facet hypertrophy. Vascular calcifications. Calcification in the pelvis could be a calcified degenerated fibroid. Impression: No acute findings. Grade 1 anterolisthesis of L4 on L5, degenerative. Moderate to severe lower lumbar degenerative change. This document has been electronically signed by: Meagan Boyd MD on 08/17/2025 18:59:11 Discharge Plan Discharge Clinical Impression: Acute right-sided back pain Patient Disposition: Home, Self-Care Instructions: Back Pain (ED) Additional Instructions: Your workup in the ER today was reassuring. This includes your blood work, your urine sample did not have any evidence of blood or signs of a kidney stone. Your x-ray showed moderate to severe arthritis in your lower back. You may use Tylenol and meloxicam as needed for pain. You may take baclofen as needed for muscle spasms. This may make you drowsy, do not drink alcohol or drive after taking it. You may also use lidocaine cream and last saw you may use hot or cold packs to help with the pain Follow up with your primary doctor, return for new or worsening symptoms Prescriptions: New baclofen 5 mg tablet 5 mg PO TID PRN (Reason: muscle spasm) Qty: 15 0RF No Action (DME) FreeStyle Lite Strips Strip See Rx Instructions .ROUTE .MEDSUPPLY Qty: 200 3RF Rx Instructions: As directed check the BS BID atorvastatin 10 mg tablet 10 mg PO DAILY Qty: 90 3RF alendronate 70 mg tablet 70 mg PO QWEEK 84 Days Qty: 12 3RF amlodipine 5 mg tablet 5 mg PO DAILY 90 Days Qty: 90 2RF hydrochlorothiazide 25 mg tablet 25 mg PO DAILY 90 Days Qty: 90 2RF meloxicam 15 mg tablet 15 mg PO DAILY Qty: 90 3RF dulaglutide 1.5 mg/0.5 mL pen injector 1.5 mg subcut QWEEK Qty: 12 3RF (DME) FreeStyle Lite Strips Strip See Rx Instructions .ROUTE .MEDSUPPLY Qty: 10 Rx Instructions: As directed cholecalciferol (vitamin D3) 25 mcg (1,000 unit) capsule 25 mcg PO DAILY cyanocobalamin (vitamin B-12) 1,000 mcg capsule 1,000 mcg PO DAILY Jardiance 10 mg tablet 10 mg PO DAILY Qty: 90 3RF metformin 500 mg tablet 1,000 mg PO BID Qty: 360 3RF omeprazole 20 mg capsule,delayed release(DR/EC) 20 mg PO DAILY Qty: 90 3RF ramipril 10 mg capsule 10 mg PO DAILY Qty: 90 3RF alclometasone 0.05 % cream 1 appl topical BID PRN (Reason: itching) Qty: 15 0RF Print Language: [place]
[2025-08-17 14:35] LABS: MANUAL DIFF FLAG NO
[2025-08-17 14:38] LABS: Appearance Urine Clear; Glucose Urine UA >=1000 mg/dL (Negative); PH 5.0 (5.0-9.0); Specific Gravity - Urine >= 1.030 (1.005-1.025); UMIC TRIGGER UACC YES
[2025-08-17 14:40] LABS: Hematocrit 43.6 % (37.0-47.0); Hemoglobin 15.0 g/dl (12.0-16.0); Imm Gran Abs Auto 0.02 X10*3/uL (0.00-0.03); Imm Gran Pct Auto 0.3 % (0.0-0.4); Lymphocytes Absolute Auto 2.3 X10*3/uL (1.2-4.9); Mean Corpuscular HGB Conc 34.4 g/dl (31.0-35.0); Mean Corpuscular Hemoglobin 28.9 pg (27.0-33.0); Mean Corpuscular Volume 84.0 fL (80.0-98.0); NRBC Abs Auto 0.000 X10*3/uL (0.0-0.012); NRBC Pct Auto 0.0 /100WBC (0.0-0.2); Platelet Count 201 X10*3/uL (160-400); Red Blood Count 5.19 X10*6/uL (4.20-5.50); White Blood Count 7.7 X10*3/uL (4.8-10.8)
[2025-08-17 14:53] LABS: Alanine Aminotransferase 25 U/L (0-31); Albumin Level 4.7 g/dL (3.5-5.0); Alkaline Phosphatase 54 U/L (39-117); Anion Gap 13 (12-20); Aspartate Amino Transferase 23 U/L (5-31); Blood Urea Nitrogen 22 mg/dL (9-16); Calcium 9.8 mg/dL (8.4-10.2); Carbon Dioxide 28 mmol/L (22-29); Chloride 107 mmol/L (96-108); Creatinine Clr Calc Pharmacy 49.7; Estimated Glomerular Filt Rate > 60; Magnesium 1.7 mg/dL (1.6-2.6); Potassium 3.6 mmol/L (3.3-5.1); Sodium 144 mmol/L (135-145); Total Protein 7.1 g/dL (6.5-8.0)
--- OUTSIDE RECORDS SUMMARY | 2025-08-17 19:14 | XMS_ITS | Clinical Summary ---
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 FOR LIFE MEDICARE SUPPLEMENT MEDICARE PART A & B FOR LIFE MEDICARE SUPPLEMENT MEDICARE PART A & B Member Subscriber Plan / Payer (Ef fective 2017-Present) Name:Cassi Reddy Member ID:[id number] Relation to Subscriber:Self Name:Cassi Reddy Subscriber ID:[id number] Payer ID:[id number] Group ID:Not on file Type:Medicare Address: [employer] 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 It is not the complete legal health record.[facility]
[2025-08-17 19:23] VITALS: BP 142/71; PULSE 64; RESP 16; TEMP 36.1; O2SAT 96
[2025-08-17 19:31] VITALS: BP 142/71; PULSE 64; RESP 16; TEMP 36.1; O2SAT 96
== END 2025-08-17 19:32 | disposition home or self-care (01) ==
PROVIDERS: Physician Assistant Medical; Emergency Provider Student in an Organized Health Care Education/Training Program; PCP Internal Medicine
DX: M54.50 Low back pain, unspecified (principal); E11.9 Type 2 diabetes mellitus without complications; K21.9 Gastro-esophageal reflux disease without esophagitis; E78.5 Hyperlipidemia, unspecified; R10.9 Unspecified abdominal pain; I10 Essential (primary) hypertension; Z79.899 Other long term (current) drug therapy
CPT/HCPCS: 36415; 72070; 72100; 80048; 80076; 81001; 83735; 85025; 99283

== ENCOUNTER → 2025-08-17 17:42 | Outpatient (BNV) | payer MEDICARE, OTHER, SELFPAY | PROVIDERS: Emergency Provider Student in an Organized Health Care Education/Training Program; PCP Internal Medicine; Visit Provider Radiology Diagnostic Radiology | DX: M51.360 Other intervertebral disc degeneration, lumbar region with discogenic back pain only (principal); M51.34 Other intervertebral disc degeneration, thoracic region | CPT/HCPCS: 72070; 72100 ==

== ENCOUNTER 2025-08-19 10:02 | Outpatient (AMB) | payer MEDICARE, OTHER, SELFPAY ==
--- OUTSIDE RECORDS SUMMARY | 2022-08-19 14:35 | XMS_ITS | Encounter Summary ---
Author Organization [facility] Address [address] [facility] [address] [place] [address] Phone Care Team Providers Care Pulping Machine Operator Name Role Phone Tarun Aragon MD Primary Care Provider [phone] Encounter Details Date Type Department Care Team (Late st Contact Info) Description 08/19/2022 2:35 PM EDT Hospital Encounter [facility] [address] [place] [address] Inna Mcintyre CNP [address] [place] [address] Social History Tobacco Use Types Packs/Day Years [...] abnormality. IMPRESSION: No acute abnormality. Inna Mcintyre GEAR STRAIGHTENER IMG XR CHEST Final Resul t documented in this encounter Visit Diagnoses Not on filedocumented in this encounter Additional Health Concerns Infection Onset Date Last Indicated Resolved Time CoV-Risk 08/19/2022 08/19/2022 08/20/2022 11:1 3 AM EDT COVID-19 08/19/2022 08/19/2022 09/09/2022 1:21 AM EDT documented as of this encounter Care Teams Pulping Machine Operator Relationship Specialty Start Date End Date Tarun Aragon MD [address] [place] [address] PCP - General Internal Medicine 08/19/22 documented as of this encounter Additional Source Comments The information contained in this document represents components of the legal health record. It is not the complete legal health record.[facility]
[2025-08-19 10:07] VITALS: BP 132/68; PULSE 77; O2SAT 97; BMI 30.5
--- NOTE | 2025-08-19 10:07 | MHC.PC.OV ---
Vital Signs 08/19/25 10:07 Height 4 ft 11 in Weight 151 lb BMI 30.5 BP 132/68 Blood Pressure Location Lt brachial Position Sitting Pulse 77 Pulse Source Pulse Oximeter Pulse Oximetry (%) 97 Oxygen Delivery Method Room Air Intake Visit Reasons: follow up Allergies penicillin V Allergy (Unknown, Verified 08/19/25 10:08) Pt was told she was allergic as a child. Medication List - Last Reconciled 08/19/25 by Tarun Aragon MD alclometasone 0.05% 1 appl topical BID PRN alendronate 70 mg PO QWEEK 12 weeks amlodipine 5 mg PO DAILY 90 days atorvastatin 10 mg PO DAILY baclofen 5 mg PO TID PRN blood sugar diagnostic As directed blood sugar diagnostic (FreeStyle Lite Strips) As directed check the BS BID cholecalciferol (vitamin D3) 25 mcg PO DAILY cyanocobalamin (vitamin B-12) 1,000 mcg PO DAILY dulaglutide 1.5 mg (0.5 mL) subcut QWEEK empagliflozin (Jardiance) 10 mg PO DAILY gabapentin 100 mg PO BEDTIME hydrochlorothiazide 25 mg PO DAILY 90 days metformin 1,000 mg (2 x 500 mg) PO BID omeprazole 20 mg PO DAILY ramipril 10 mg PO DAILY Tobacco use date assessed: 12/07/24 Fall risk assessment: No Falls in past year Last assessed Fall Risk: 08/19/25 Dental Screening Dental Screen Date: 12/07/24 [facility] Medical History Otitis media, chronic, bilateral Colon cancer screening Osteoporosis Diverticulitis Osteoarthritis, knee Type 2 diabetes mellitus with hyperglycemia Insomnia Vitamin D deficiency Hypercholesterolemia Pulmonary nodule GERD (gastroesophageal reflux disease) Obesity (BMI 30-39.9) Hypertension Fatty liver Surgical History History of knee replacement procedure of right knee History of section Family History Father Hypertension Mother Ovarian cancer Sister Breast cancer Social History Housing: Apartment Alcohol intake: never Patient Tobacco Use Status: Never used Tobacco Tobacco use type: Cigarette e-Cigarette/Vaping Use: Never Used Second Hand Smoke Exposure: No Current occupational status: retired Cognitive needs: No Hearing needs: No Vision needs: Yes Questionnaire PHQ-9 Over the last 2 weeks, how often have you been bothered by any of the following problems? 1. Little interest or pleasure in doing things: not at all 2. Feeling down, depressed, or hopeless: not at all 3. Trouble falling or staying asleep, or sleeping too much: nearly every day 4. Feeling tired or having little energy: not at all 5. Poor appetite or overeating: not at all 6. Feeling bad about yourself - or that you are a failure or have let yourself or your family down: not at all 7. Trouble concentrating on things, such as reading the newspaper or watching television: not at all 8. Moving or speaking so slowly that other people could have noticed. Or the opposite - being so fidgety or restless that you have been moving around a lot more than usual: not at all 9. Thoughts that you would be better off or of hurting yourself in some way: not at all Total score: 3 Depression Screening Interpretation: Positive Depression Screening Done: Yes Source: Developed by Drs. Michael Harrington, Mary Ann Diop, Niels Greene and colleagues, with an educational leonid from [employer]. Thrive Questionnaire Date Thrive assessed: 12/07/24 I am a: Patient What is your living situation today?: I have a steady place to live Within the past 12 months, did the food you bought not last and you didn't have the money to get more?: Never true Within the past 12 months, did you worry whether your food would run out before you got money to buy more?: Never true Do you have trouble paying for medicines?: No Do you have trouble getting transportation to medical appointments?: No Do you have trouble paying your heating and electricity bill?: No Do you have trouble taking care of your child, family member or friend?: No Do you have trouble with day-to-day activities such as bathing, preparing meals, shopping, managing finances, etc.?: No Are you currently unemployed and looking for a job?: No Are you interested in more education?: No Please select the resources that you would like help with: None Currently or been in a relationship where the following occur: No concerns reported THRIVE Score: 0 AUDIT C Alcohol Use Questionnaire (AUDIT-C) 1. How often do you have a drink containing alcohol?: Never 3. How often do you have six or more drinks on one occasion?: Never Total Score: 0 OSCAR-7 AMB Questionnaire OSCAR-7 Date OSCAR - 7 assessed: 12/07/24 Feeling nervous, anxious, or on edge: 0 = Not at all Not being able to stop or control worryin = Not at all Worrying too much about different things: 0 = Not at all Trouble relaxin = Not at all Being so restless that it is hard to sit still: 0 = Not at all Becoming easily annoyed or irritable: 0 = Not at all Feeling afraid as if something awful might happen: 0 = Not at all Total OSCAR-7 score (0-4 normal; 5-9 mild; 10-14 moderate; 15-21 severe): 0 Source: Developed by Drs. Michael Harrington, Mary Ann Diop, Niels Greene and colleagues, with an educational leonid from [employer]. Physical exam (Primary Care) Vital Signs: Last Vital Signs Pulse 77 08/19/25 10:07 BP 132/68 08/19/25 10:07 Pulse Ox 97 08/19/25 10:07 Oxygen Delivery Method Room Air 08/19/25 10:07 BMI result Body Mass Index 30.5 Tobacco/Smoking Status: Tobacco use Status Tobacco use date assessed 12/07/24 08/19/25 10:08 Patient Tobacco Use Status Never used Tobacco 08/19/25 10:08 Tobacco use type Cigarette 08/19/25 10:08 e-Cigarette/Vaping Use Never Used 08/19/25 10:08 PHQ-9: PHQ-9 Score PHQ-9: Total score 3 08/19/25 10:47 Depression Screening Interpretation: Positive Thrive Assessment: Date of Thrive Assessment Date Thrive assessed 12/07/24 08/19/25 10:08 Currently or been in a relationship where the following occur: No concerns reported Const General: alert; No acute distress Eyes Conjunctivae: conjunctivae normal Resp Auscultation: clear to auscultation bilaterally Cardio Rate: regular rate Rhythm: regular rhythm GI Inspection: Yes normal to inspection Extrem General: Yes normal to inspection and No edema Results AMB Hemoglobin A1c AMB Hemoglobin A1c 6.6 % Last Edit by Lorena Rizzo CMA on 08/19/25 10:28 Results Reviewed Results Reviewed: Laboratory Last Values Hgb A1c (Clinic) 6.6 % (4.0-6.0) H 08/19/25 10:09 Coding Level of Care Code Est Pt Level 4 (51877) Complex EM visit Add On G2211 Diagnoses Type 2 diabetes mellitus with hyperglycemia, without long-term current use of insulin E11.65 Diabetes mellitus [facility] insulin use: without [facility] use Obesity (BMI 30-39.9) E66.9 Essential hypertension I10 Hypertension type: essential hypertension Hypercholesterolemia E78.00 Gastroesophageal reflux disease without esophagitis K21.9 Esophagitis presence: without esophagitis Osteoarthritis of left knee M17.12 Lumbar degenerative disc disease M51.369 RLQ abdominal pain R10.31 Assessment & Plan Assessment & Plan (1) Type 2 diabetes mellitus with hyperglycemia: Code(s): E11.65 - Type 2 diabetes mellitus with hyperglycemia Category: Medical Qualifiers: Diabetes mellitus [facility] insulin use: without intermediate accountant use Qualified Code(s): E11.65 - Type 2 diabetes mellitus with hyperglycemia Plan: Decrease the amount of carbohydrate intake, pasta, bread, rice and potatoes are all sugar and that is aside from all the sweet stuff, remember that fruits are good but they are Sweet also. Hemoglobin A1c goal of less than 7.0. Patient has Trulicity at 1.5 mg once a week Jardiance at 10 mg once a day metformin a 1000 mg twice a day (2) Obesity (BMI 30-39.9): Code(s): E66.9 - Obesity, unspecified Category: Medical Plan: Diet and exercise (3) Hypertension: Comment: Stress 2013- Code(s): I10 - Essential (primary) hypertension Category: Medical Qualifiers: Hypertension type: essential hypertension Qualified Code(s): I10 - Essential (primary) hypertension Plan: Continue with blood pressure medication. Decrease salt intake and exercise takes ramipril 10 mg once a day hydrochlorothiazide 25 mg once a day amlodipine 5 mg once a day (4) Hypercholesterolemia: Code(s): E78.00 - Pure hypercholesterolemia, unspecified Category: Medical Plan: Avoid fried foods, chicken skin, eggs, butter margarine, pastries and meat. Be it pork or beef they have a lot of cholesterol LDL goal of less than 100 and triglyceride of less than 150 on atorvastatin 10 mg once a day (5) GERD (gastroesophageal reflux disease): Code(s): K21.9 - Gastro-esophageal reflux disease without esophagitis Category: Medical Qualifiers: Esophagitis presence: without esophagitis Qualified Code(s): K21.9 - Gastro-esophageal reflux disease without esophagitis Plan: Avoid the foods that causes that usually spicy foods, tomato products, juices, coffee, soda and foods that your sensitive to. After eating do not lie down, allow 3-4 hours before in lie down. And keep the head of bed above 30 degrees to avoid the acid from going up. (6) Osteoarthritis of left knee: Code(s): M17.12 - Unilateral primary osteoarthritis, left knee Category: Medical Plan: Patient has seen ortho for the knee. Patient has had right knee arthroplasty years ago. (7) Lumbar degenerative disc disease: Code(s): M51.369 - Other intervertebral disc degeneration, lumbar region without mention of lumbar back pain or lower extremity pain Category: Medical Plan: Keep active lose the weight (8) RLQ abdominal pain: Code(s): R10.31 - Right lower quadrant pain Category: Medical Plan History of Present Illness The patient is a 75-year-old female presenting for a follow-up visit. She has a history of hypertension, gastroesophageal reflux disease, hypercholesterolemia, diabetes mellitus, and osteopenia. Her last bone density test was conducted in April 2024, and her last colonoscopy was in May 2023, which revealed a tubular adenoma of the colon. The patient also has diabetic neuropathy and has been experiencing right-sided back pain, which led to an emergency room visit on August 17. An X-ray showed moderate degenerative changes with no acute findings, and a 5 mm anterolisthesis at L4-L5 was noted. She has seen orthopedics for left knee osteoarthritis and has a history of right total knee arthroplasty. An X-ray revealed moderate to severe osteoarthritis with mild lateral patellar tilt. Recent blood work in August 2025 showed normal blood count, electrolytes, and renal function. Her hemoglobin A1c is currently 6.6, up from a previous 6.2, and her LDL cholesterol was 91 mg/dL as of November 2024. The patient reports intermittent bowel irregularities, including diarrhea and regular bowel movements, which prompted a colonoscopy. She also experiences nocturia, waking once per night, and has been advised to maintain fiber intake and hydration to manage bowel movements. Health Maintenance - Bone density test in April 2024 - Colonoscopy in May 2023 - Blood work in August 2025 showing normal blood count, electrolytes, and renal function - LDL cholesterol test in November 2024 with a result of 91 mg/dL Social History - Exercise: Engages in gardening activities Review of Systems - Musculoskeletal: Reports right-sided back pain, denies pain radiating to the front - Gastrointestinal: Reports intermittent diarrhea and regular bowel movements, denies consistent abdominal pain - Genitourinary: Reports nocturia, waking once per night Physical Exam - Musculoskeletal: Examination of the back revealed soreness in the lower back region, with no pain radiating to the front. - Musculoskeletal: Examination of the legs showed no significant pain upon lifting, with mild soreness noted in the lower abdomen, possibly due to a full bladder. Results - X-ray: Moderate degenerative changes, 5 mm anterolisthesis at L4-L5 - Blood work: Normal blood count, electrolytes, renal function, hemoglobin A1c 6.6 - LDL cholesterol: 91 mg/dL as of November 2024 Plan Patient was informed and verbally consented to the use of an ambient scribe for clinic note documentation during this visit. 1. Diabetes Mellitus The patient's diabetes management includes a goal to maintain hemoglobin A1c below 7.0. Current medications include Trulicity 1.5 mg weekly, Jardiance 10 mg daily, and Metformin 1000 mg twice daily, along with diet and exercise recommendations. 2. Hypertension The hypertension management plan includes Tixaram Sue 10 mg daily, hydrochlorothiazide 25 mg daily, and amlodipine 5 mg daily. 3. Hypercholesterolemia The cholesterol management plan aims for an LDL goal of less than 100 mg/dL and triglycerides less than 150 mg/dL, with atorvastatin 10 mg daily. 4. Degenerative Disc Disease The patient has been experiencing right-sided back pain due to degenerative disc disease, with moderate degenerative changes noted on X-ray. A CAT scan of the abdomen has been requested to rule out other causes of pain, and gabapentin 100 mg at bedtime has been prescribed for nerve pain. 5. Osteoarthritis Of The Knee The patient has moderate to severe osteoarthritis of the knee, with a history of right total knee arthroplasty. A gel shot is being considered pending insurance authorization. 6. Diverticulitis The patient has a history of diverticulitis, and dietary recommendations include maintaining fiber intake and hydration to manage bowel movements. Discussion Notes During the visit, we discussed the management of diabetes, hypertension, and hypercholesterolemia, emphasizing medication adherence and lifestyle modifications. We also reviewed the patient's back pain and knee osteoarthritis, considering a CAT scan for further evaluation and a gel shot for knee pain management. The importance of maintaining fiber intake and hydration for diverticulitis was highlighted. Patient Instructions - Continue current diabetes medications and monitor blood sugar levels regularly. - Take prescribed hypertension and cholesterol medications as directed. - Maintain a balanced diet and engage in regular physical activity. - Follow up with orthopedics regarding knee pain management and gel shot authorization. - Schedule and complete the CAT scan as advised. - Ensure adequate fiber intake and hydration to manage bowel movements. Orders: Orders AMB Hemoglobin A1c Today Z13.9 - Encounter for screening, unspecified CT abdomen pelvis w IV con Today R10.31 - Right lower quadrant pain Blood Urea Nitrogen Today R10.31 - Right lower quadrant pain Creatinine Today R10.31 - Right lower quadrant pain Medications: New gabapentin 100 mg PO BEDTIME 30 caps 3RF E11.40 - Type 2 diabetes mellitus with diabetic neuropathy, unspecified Discontinued meloxicam Discontinued Reason: Doctor's Order 15 mg PO DAILY 90 tabs 3RF E11.65 - Type 2 diabetes mellitus with hyperglycemia
--- OUTSIDE RECORDS SUMMARY | 2025-08-19 11:50 | XMS_ITS | Clinical Summary ---
Author Organization [facility] Address [address] [place], [place] [id number] Phone Care Team Providers Care Manager Of Engineering Name Role Phone Tarun Aragon MD Primary Care Provider [phone] Allergies No known active allergies Medications amLODIPine [...] file Insurance MEDICARE PART A & B Member Subscriber Plan / Payer (Ef fective 2017-Present) Name:Cassi Reddy Member ID:[id number] Relation to Subscriber:Self Name:Cassi Reddy Subscriber ID:[id number] Payer ID:[id number] Group ID:Not on file Type:Medicare Address: [employer] [facility]. [address] [place] [address] [employer] MEDICARE SUPPLEMENT MEDICARE PART A & [place] [address] [address] [place] [address] MEDICARE SUPPLEMENT MEDICARE PART A & B Member Subscriber Plan / Payer (Ef fective 2017-Present) Name:Cassi Reddy Member ID:[id number] Relation to Subscriber:Self Name:Cassi Reddy Subscriber ID:[id number] Payer ID:[id number] Group ID:Not on file Type:Medicare Address: [employer] [id number] FOR LIFE MEDICARE SUPPLEMENT MEDICARE PART A & B FOR LIFE MEDICARE SUPPLEMENT MEDICARE PART A & B Member Subscriber Plan / Payer (Ef fective 2017-Present) Name:Cassi Reddy Member ID:[id number] Relation to Subscriber:Self Name:Cassi Reddy Subscriber ID:[id number] Payer ID:[id number] Group ID:Not on file Type:Medicare Address: [employer] [address] [place] [phone] FOR LIFE MEDICARE SUPPLEMENT MEDICARE PART A & B FOR LIFE MEDICARE SUPPLEMENT Member Subscriber Plan / Payer ( fective 2017-Present) Name:Cassi Reddy Relation to Subscriber:Spouse Name:JODI REDDY Date of :1958 Address: [address] [place] [id number] Payer ID:[id number] (NAIC) Group ID:Not on file Type:[facility] [place] Address: [place] [phone] MEDICARE PART A & B FOR LIFE MEDICARE SUPPLEMENT MEDICARE PART A & B FOR LIFE MEDICARE SUPPLEMENT MEDICARE PART A & B Member Subscriber Plan / Payer (Ef fective 2017-Present) Name:Cassi Reddy Member ID:[id number] Relation to Subscriber:Self Name:Cassi Reddy Subscriber ID:[id number] Payer ID:[id number] Group ID:Not on file Type:Medicare Address: [employer] [facility] [address] [place] [address] FOR LIFE MEDICARE SUPPLEMENT Care Teams Manager Of Engineering Relationship Specialty Start Date End Date Tarun Aragon MD [address] [place] [address] PCP - General Internal Medicine 08/19/22 Additional Source Comments The information contained in this document represents components of the legal health record. It is not the complete legal health record.[facility]
== END 2025-08-19 11:05 | disposition home or self-care (01) ==
LOC: HO.HMCH 10:03
PROVIDERS: PCP Internal Medicine; Visit Provider Internal Medicine
DX: E11.65 Type 2 diabetes mellitus with hyperglycemia (principal); E66.9 Obesity, unspecified; Z68.30 Body mass index [BMI] 30.0-30.9, adult; I10 Essential (primary) hypertension; E78.00 Pure hypercholesterolemia, unspecified; K21.9 Gastro-esophageal reflux disease without esophagitis; M17.12 Unilateral primary osteoarthritis, left knee; M51.369 Other intervertebral disc degeneration, lumbar region without mention of lumbar back pain or lower extremity pain; R10.31 Right lower quadrant pain

== ENCOUNTER → 2025-08-19 10:02 | Outpatient (BNVA) | payer MEDICARE, OTHER, SELFPAY | PROVIDERS: PCP Internal Medicine; Visit Provider Internal Medicine | DX: E11.65 Type 2 diabetes mellitus with hyperglycemia (principal); E78.00 Pure hypercholesterolemia, unspecified; I10 Essential (primary) hypertension; K21.9 Gastro-esophageal reflux disease without esophagitis; M17.12 Unilateral primary osteoarthritis, left knee; E66.9 Obesity, unspecified; Z68.30 Body mass index [BMI] 30.0-30.9, adult; R10.31 Right lower quadrant pain; M51.369 Other intervertebral disc degeneration, lumbar region without mention of lumbar back pain or lower extremity pain; Z71.3 Dietary counseling and surveillance | CPT/HCPCS: 83036; 99212 ==

== ENCOUNTER 2025-09-06 09:51 | Outpatient (AMB) | payer MEDICARE, OTHER, SELFPAY ==
--- OUTSIDE RECORDS SUMMARY | 2022-08-19 14:35 | XMS_ITS | Encounter Summary ---
Author Organization [facility] Address [address] [facility] [address] [place] [address] Phone Care Team Providers Care Web Art Director Name Role Phone Tarun Aragon MD Primary Care Provider [phone] Encounter Details Date Type Department Care Team (Late st Contact Info) Description 08/19/2022 2:35 PM EDT Hospital Encounter [facility] [address] [place] [address] Inna Mcintyre CNP [address] [place] [address] [email or web address] Social History Tobacco Use Types Packs/Day Years [...] abnormality. IMPRESSION: No acute abnormality. Inna Mcintyre DIRECT CUSTOMER SERVICE REPRESENTATIVE IMG XR CHEST Final Resul t documented in this encounter Visit Diagnoses Not on filedocumented in this encounter Additional Health Concerns Infection Onset Date Last Indicated Resolved Time CoV-Risk 08/19/2022 08/19/2022 08/20/2022 11:1 3 AM EDT COVID-19 08/19/2022 08/19/2022 09/09/2022 1:21 AM EDT documented as of this encounter Care Teams Web Art Director Relationship Specialty Start Date End Date Tarun Aragon MD [address] [place] [address] PCP - General Internal Medicine 08/19/22 documented as of this encounter Additional Source Comments The information contained in this document represents components of the legal health record. It is not the complete legal health record.[facility]
--- NOTE | 2025-09-06 10:03 | MHC.OFFVIS ---
Vital Signs 09/06/25 10:10 Height 4 ft 11 in Weight 151 lb BMI 30.5 Intake Visit Reasons: Left Knee Durolane Injection Intake Note: Cassi is a 75 year old female who presents today for a Left Knee Durolane Injection. Allergies penicillin V Allergy (Unknown, Verified 08/19/25 10:08) Pt was told she was allergic as a child. [facility] Medical History Otitis media, chronic, bilateral Colon cancer screening Osteoporosis Diverticulitis Osteoarthritis, knee Type 2 diabetes mellitus with hyperglycemia Insomnia Vitamin D deficiency Hypercholesterolemia Pulmonary nodule GERD (gastroesophageal reflux disease) Obesity (BMI 30-39.9) Hypertension Fatty liver Surgical History History of knee replacement procedure of right knee History of section Family History Father Hypertension Mother Ovarian cancer Sister Breast cancer Social History Housing: Apartment Alcohol intake: never Patient Tobacco Use Status: Never used Tobacco Tobacco use type: Cigarette e-Cigarette/Vaping Use: Never Used Second Hand Smoke Exposure: No Current occupational status: retired Cognitive needs: No Hearing needs: No Vision needs: Yes Coding
[2025-09-06 10:10] VITALS: BMI 30.5
--- NOTE | 2025-09-06 10:10 | MHC.OFFVIS ---
Vital Signs 09/06/25 10:10 Height 4 ft 11 in Weight 151 lb BMI 30.5 Intake Visit Reasons: Left Knee Durolane Injection Allergies penicillin V Allergy (Unknown, Verified 09/06/25 10:10) Pt was told she was allergic as a child. HPI HPI Left Knee Durolane Injection: Details: Here for left Asya injection. PFSH Medical History Otitis media, chronic, bilateral Colon cancer screening Osteoporosis Diverticulitis Osteoarthritis, knee Type 2 diabetes mellitus with hyperglycemia Insomnia Vitamin D deficiency Hypercholesterolemia Pulmonary nodule GERD (gastroesophageal reflux disease) Obesity (BMI 30-39.9) Hypertension Fatty liver Surgical History History of knee replacement procedure of right knee History of section Family History Father Hypertension Mother Ovarian cancer Sister Breast cancer Social History Housing: Apartment Alcohol intake: never Patient Tobacco Use Status: Never used Tobacco Tobacco use type: Cigarette e-Cigarette/Vaping Use: Never Used Second Hand Smoke Exposure: No Current occupational status: retired Cognitive needs: No Hearing needs: No Vision needs: Yes Physical Exam Exam Exam: Skin over the left knee clean, dry and intact. Vital Signs: BMI result Body Mass Index 30.5 Office Procedures Joint Inj/Aspir; Non-Pain Clin Joint Injection/Drain Details: Injected Durolane. Site was prepped using aseptic technique. Patient tolerated the procedure well. Shoulders, Hips, Knees, Knee Large Joint Injection : Left Knee Coding Procedure code (CPT) selection complete Assessment & Plan Assessment & Plan (1) Osteoarthritis of left knee: Code(s): M17.12 - Unilateral primary osteoarthritis, left knee Category: Medical Plan: 75-year-old with diabetic neuropathy who comes in today for Asya injection. I injected her left knee without complication. She can follow up as needed. Coding Level of Care Code Est Pt Level 2 (35436) Diagnoses Osteoarthritis of left knee M17.12 CPT Codes Shoulders, Hips, Knees, - Knee Large Joint Injection 56593: Left Knee ([id number])
--- OUTSIDE RECORDS SUMMARY | 2025-09-06 11:17 | XMS_ITS | Clinical Summary ---
Author Organization [facility] Address [address] [place], [place] [address] Phone Care Team Providers Care Merchandise Stocker Name Role Phone Tarun Aragon MD Primary Care Provider [phone] Allergies No known active allergies Medications amLODIPine [...] COLONOSCOPY 1997 RSV VACCINE (1 - Risk 50-74 years 1-dose series) 2002 OSTEOPOROSIS SCREENING INITIAL (ONE-TIME) 2017 INFLUENZA VACCINE [...] Payer (Ef fective 2017-Present) Name:Cassi Reddy Member ID:[id number] Relation to Subscriber:Self Name:Cassi Reddy Subscriber ID:[id number] Payer ID:[id number] Group ID:Not on file Type:Medicare Address: [employer] [facility]. [address] [place] [address] [employer] [facility] [facility] [place] Address[place] [address] [address] MEDICARE PART A & B Member Subscriber Plan / Payer (Ef fective 2017-Present) Name:Cassi Reddy Member ID:[id number] Relation to Subscriber:Self Name:Cassi Reddy Subscriber ID:[id number] Payer ID:[id number] Group ID:Not on file Type:Medicare Address: [employer] [address] [place], [place] [id number] [place] [address] [place] [facility] [facility] [place]: [address] [address] MEDICARE PART A & B Member Subscriber Plan / Payer (Ef fective 2017-Present) Name:Cassi Reddy Member ID:[id number] Relation to Subscriber:Self Name:Cassi Reddy Subscriber ID:[id number] Payer ID:[id number] Group ID:Not on file Type:Medicare Address: [employer] [address] [employer] MEDICARE SUPPLEMENT MEDICARE PART A & B [facility]: [address] [address] MEDICARE PART A & B Member Subscriber Plan / Payer (Ef fective 2017-Present) Name:Cassi Reddy Member ID:[id number] Relation to Subscriber:Self Name:Cassi Reddy Subscriber ID:[id number] Payer ID:[id number] Group ID:Not on file Type:Medicare Address: [employer] [address] [place] [phone] [employer] [place] [facility] [place] [address] MEDICARE PART A & B [employer] [facility] Address: [place] [phone] MEDICARE PART A & B Member Subscriber Plan / Payer (Ef fective 2017-Present) Name:Cassi Reddy Member ID:[id number] Relation to Subscriber:Self Name:Cassi Reddy Subscriber ID:[id number] Payer ID:[id number] Group ID:Not on file Type:Medicare Address: [employer] [address] [place] [address] [employer] [facility] Address: [address] [address] MEDICARE PART A & B Member Subscriber Plan / Payer (Ef fective 2017-Present) Name:Cassi Reddy Member ID:[id number] Relation to Subscriber:Self Name:Cassi Reddy Subscriber ID:[id number] Payer ID:[id number] Group ID:Not on file Type:Medicare Address: [employer] [address] [place] [address] [facility] Address: [address] [address] MEDICARE PART A & B Member Subscriber Plan / Payer (Ef fective 2017-Present) Name:Cassi Reddy Member ID:[id number] Relation to Subscriber:Self Name:Cassi Reddy Subscriber ID:[id number] Payer ID:[id number] Group ID:Not on file Type:Medicare Address: [employer] [facility] [address] [place] [address] FOR LIFE MEDICARE SUPPLEMENT Care Teams Merchandise Stocker Relationship Specialty Start Date End Date Tarun Aragon MD [address] [place] [address] PCP - General Internal Medicine 08/19/22 Additional Source Comments The information contained in this document represents components of the legal health record. It is not the complete legal health record.[facility]
== END 2025-09-06 10:19 | disposition home or self-care (01) ==
LOC: HO.HOS 09:52
PROVIDERS: PCP Internal Medicine; Visit Provider Orthopaedic Surgery
DX: M17.12 Unilateral primary osteoarthritis, left knee (principal)
CPT/HCPCS: 20610

== ENCOUNTER → 2025-09-06 09:51 | Outpatient (BNVA) | payer MEDICARE, OTHER, SELFPAY | PROVIDERS: PCP Internal Medicine; Visit Provider Orthopaedic Surgery | DX: M17.12 Unilateral primary osteoarthritis, left knee (principal) | CPT/HCPCS: 20610; J7318 ==

== ENCOUNTER 2025-09-17 07:52 | Outpatient (REF) | payer MEDICARE, OTHER, SELFPAY ==
--- OUTSIDE RECORDS SUMMARY | 2022-08-19 14:35 | XMS_ITS | Encounter Summary ---
Author Organization [facility] Address [address] [facility] [address] [place] [address] Phone Care Team Providers Care Email Producer Name Role Phone Tarun Aragon MD Primary Care Provider [phone] Encounter Details Date Type Department Care Team (Late st Contact Info) Description 08/19/2022 2:35 PM EDT Hospital Encounter [facility] [address] [place] [address] Inna Mcintyre CNP 12 [place] [address] [email or web address] Social History Tobacco Use Types Packs/Day Years [...] abnormality. IMPRESSION: No acute abnormality. Inna Mcintyre MANAGER WINTER IMG XR CHEST Final Resul t documented in this encounter Visit Diagnoses Not on filedocumented in this encounter Additional Health Concerns Infection Onset Date Last Indicated Resolved Time CoV-Risk 08/19/2022 08/19/2022 08/20/2022 11:1 3 AM EDT COVID-19 08/19/2022 08/19/2022 09/09/2022 1:21 AM EDT documented as of this encounter Care Teams Email Producer Relationship Specialty Start Date End Date Tarun Aragon MD [address] [place] [address] PCP - General Internal Medicine 08/19/22 documented as of this encounter Additional Source Comments The information contained in this document represents components of the legal health record. It is not the complete legal health record.[facility]
--- OUTSIDE RECORDS SUMMARY | 2025-09-17 07:55 | XMS_ITS | Clinical Summary ---
Author Organization [facility] Address [address] [place], [place] [address] Phone Care Team Providers Care Lens Cleaner Name Role Phone Tarun Aragon MD Primary Care Provider [phone] Allergies No known active allergies Medications amLODIPine [...] file Insurance MEDICARE PART A & B [employer] [facility] [place] [place] Address: [address] [address] MEDICARE PART A & [place] [place] [address] [facility] [place] [place] Address: [address] [address] MEDICARE PART A & B Member Subscriber Plan / Payer (Ef fective 2017-Present) Name:Cassi Reddy Member ID:[id number] Relation to Subscriber:Self Name:Cassi Reddy Subscriber ID:[id number] Payer ID:[id number] Group ID:Not on file Type:Medicare Address: [employer] [address] FOR LIFE MEDICARE SUPPLEMENT MEDICARE PART A & B [employer] [facility]ARE [facility] [place] [place] Address: [address] [address] MEDICARE PART A & B Member Subscriber Plan / Payer (Ef fective 2017-Present) Name:Cassi Reddy Member ID:[id number] Relation to Subscriber:Self Name:Cassi Reddy Subscriber ID:[id number] Payer ID:[id number] Group ID:Not on file Type:Medicare Address: [employer] [address] [place] [phone] FOR LIFE MEDICARE [facility] [place] [place] Address: [place] [address] MEDICARE PART A & B FOR LIFE MEDICARE [facility] [place] [place] Address[place] [phone] MEDICARE PART A & B [employer] [facility]ICARE [facility] [place] [place] Address: [address] [address] MEDICARE PART A & B [employer] LIFE [facility]ICARE [facility] [place] [place] Address: [address] [address] MEDICARE PART A & B FOR LIFE MEDICARE SUPPLEMENT Care Teams Lens Cleaner Relationship Specialty Start Date End Date Tarun Aragon MD [address] [place] [address] PCP - General Internal Medicine 08/19/22 Additional Source Comments The information contained in this document represents components of the legal health record. It is not the complete legal health record.[facility]
--- OUTSIDE RECORDS SUMMARY | 2025-09-17 07:55 | XMS_ITS ---
Author Organization Unknown ENCOUNTERS Encounter Performer Location Date Diagnosis Diagnosis Status Emergency [facility] [address] [place] [address] [id number] [place] Pre Admit Generic ED Physician [facility] [address] [place] [address] [id number] Emergency [facility] [address] [place] [address] [id number] [place] Pre Admit Generic ED Physician [facility] [address] [place] [address] [id number] Pre Admit [facility] [address] [place] [address] [id number] Outpatient [facility] [address] [place] [address] [id number] [place] Emergency [facility] [address] [place] [address] [id number] [place] *Note: Encounters from your own facility or health system may be excluded. Allergies, Adverse Reactions, Alerts Allergen Type Severity Identification Date penicillin V drug allergy [id number] Medications Name Date Quantity Days Supplied GPI Number
[2025-09-17 09:29] LABS: Alanine Aminotransferase 20 U/L (0-31); Albumin Level 4.6 g/dL (3.5-5.0); Alkaline Phosphatase 52 U/L (39-117); Anion Gap 12 (12-20); Aspartate Amino Transferase 20 U/L (5-31); Blood Urea Nitrogen 19 mg/dL (9-16); Calcium 9.7 mg/dL (8.4-10.2); Carbon Dioxide 29 mmol/L (22-29); Chloride 103 mmol/L (96-108); Cholesterol 158 mg/dL (<200); Estimated Glomerular Filt Rate 57; HDL Cholesterol 41 mg/dL (>40); Potassium 3.9 mmol/L (3.3-5.1); Sodium 140 mmol/L (135-145); Total Protein 7.3 g/dL (6.5-8.0); Triglycerides 184 mg/dL (<150)
== END 2025-09-17 07:53 | disposition home or self-care (01) ==
LOC: HO.LAB 07:52
PROVIDERS: PCP Internal Medicine; Visit Provider Internal Medicine
DX: E11.65 Type 2 diabetes mellitus with hyperglycemia (principal); E78.00 Pure hypercholesterolemia, unspecified
CPT/HCPCS: 36415; 80053; 80061; 82570; 83036

== ENCOUNTER 2025-10-12 11:10 | Outpatient (AMB) | payer MEDICARE, OTHER, SELFPAY ==
--- OUTSIDE RECORDS SUMMARY | 2022-08-19 13:35 | XMS_ITS | Encounter Summary ---
Author Organization [facility] Address [address] [facility] [address] [place] [address] Phone Care Team Providers Care System Support Specialist Name Role Phone Tarun Aragon MD Primary Care Provider [phone] Encounter Details Date Type Department Care Team (Late st Contact Info) Description 08/19/2022 2:35 PM EDT Hospital Encounter [facility] [address] [place] [id number] Inna Mcintyre CNP [address] [place] [address] Social History Tobacco Use Types Packs/Day Years Used Date Smoking Tobacco: Never Smokeless Tobacco: Never Alcohol Use Standard Drinks/Week Comments Not Currently 0 (1 standard drink = 0.6 oz pur e alcohol) Education Answer Date Recorded Are you interested in more education? Not on didier e 03/30/2023 Are you concerned about learning? Not on file 03/30/2023 No 03/30/2023 No 03/30/2023 Digital Access Answer Date Recorded No 04/28/2023 No 04/28/2023 Reliable internet access at home? Not on file 04/28/2023 Device with a working camera? Not on file Comments Unknown Sex and Gender Information Value Date Recorded Sex Assigned at Not on file Legal Sex Female 1:31 PM EDT Gender Identity Not on file Sexual Orientation Not on file documented as of this encounter Plan of Treatment Not on file documented as of this encounter Procedures Procedure Name Priority Date/Time Associated Diagnosis Comments XR CHEST PA AND LATERAL 2 VIEWS Urgent/patient waiting 08/19/2022 2:43 PM EDT Acute cough documented in this encounter Results * XR CHEST PA AND LATERAL 2 VIEWS (08/19/2022 2:43 PM EDT) Anatomical Region Laterality Modality Chest Computed Radiogr aphy 08/19/2022 2:47 PM EDT Impressions 08/19/2022 2:47 PM EDT No acute abnormality. Narrative 08/19/2022 2:47 PM EDT XR CHEST PA AND LATERAL 2 VIEWS COMPARISON: None. FINDINGS: Devices/Tubes/Lines: None. Lungs: No focal consolidation or pulmonary edema. Pleura: No pleural effusions or pneumothorax. Heart/Mediastinum: Normal cardiomediastinal silhouette. Bones/Soft Tissues: No significant skeletal abnormality. Procedure Note Priti Batista MD - 08/19/2022 XR CHEST PA AND LATERAL 2 VIEWS COMPARISON: None. FINDINGS: Devices/Tubes/Lines: None. Lungs: No focal consolidation or pulmonary edema. Pleura: No pleural effusions or pneumothorax. Heart/Mediastinum: Normal cardiomediastinal silhouette. Bones/Soft Tissues: No significant skeletal abnormality. IMPRESSION: No acute abnormality. Inna Mcintyre GLAZE HANDLER IMG XR CHEST Final Resul t documented in this encounter Visit Diagnoses Not on filedocumented in this encounter Additional Health Concerns Infection Onset Date Last Indicated Resolved Time CoV-Risk 08/19/2022 08/19/2022 08/20/2022 11:1 3 AM EDT COVID-19 08/19/2022 08/19/2022 09/09/2022 1:21 AM EDT documented as of this encounter Care Teams System Support Specialist Relationship Specialty Start Date End Date Tarun Aragon MD [address] [place] [address] PCP - General Internal Medicine 08/19/22 documented as of this encounter Additional Source Comments The information contained in this document represents components of the legal health record. It is not the complete legal health record.[facility]
--- NOTE | 2025-10-12 11:16 | A.OFFVIS_ITS ---
Intake Vital Signs 10/12/25 11:17 Height 4 ft 11 in Weight 151 lb 2 oz BMI 30.5 BP 112/60 Blood Pressure Location Lt brachial Position Sitting Pulse 90 Pulse Source Pulse Oximeter Temp 97.5 F Temp Source Temporal Artery Scan Pulse Oximetry (%) 97 Oxygen Delivery Method Room Air Intake Visit Reasons: SWV G0439 Allergies penicillin V Allergy (Unknown, Verified 10/12/25 11:17) Pt was told she was allergic as a child. Medication List - Last Reconciled 10/12/25 by Tarun Aragon MD alclometasone 0.05% 1 appl topical BID PRN alendronate 70 mg PO QWEEK 12 weeks amlodipine 5 mg PO DAILY 90 days atorvastatin 10 mg PO DAILY blood sugar diagnostic As directed blood sugar diagnostic (FreeStyle Lite Strips) As directed check the BS BID cholecalciferol (vitamin D3) 25 mcg PO DAILY cyanocobalamin (vitamin B-12) 1,000 mcg PO DAILY dulaglutide 1.5 mg (0.5 mL) subcut QWEEK empagliflozin (Jardiance) 10 mg PO DAILY gabapentin 100 mg PO BEDTIME hydrochlorothiazide 25 mg PO DAILY 90 days meloxicam 15 mg PO DAILY metformin 1,000 mg (2 x 500 mg) PO BID omeprazole 20 mg PO DAILY ramipril 10 mg PO DAILY HPI V G0439 HPI Details [place] [facility]. [facility] Orthopedics Ophthalmology my eye doctor gastroenterology Dr. Barragan [facility] Medical History (Updated 10/12/25 @ 12:11 by Tarun Aragon MD) RLQ abdominal pain Otitis media, chronic, bilateral Colon cancer screening Osteoporosis Diverticulitis Osteoarthritis, knee Type 2 diabetes mellitus with hyperglycemia Insomnia Vitamin D deficiency Hypercholesterolemia Pulmonary nodule GERD (gastroesophageal reflux disease) Obesity (BMI 30-39.9) Hypertension Fatty liver Surgical History History of knee replacement procedure of right knee History of section Family History Father Hypertension Mother Ovarian cancer Sister Breast cancer Social History Housing: Apartment Alcohol intake: never Patient Tobacco Use Status: Never used Tobacco Tobacco use type: Cigarette e-Cigarette/Vaping Use: Never Used Second Hand Smoke Exposure: No Current occupational status: retired Cognitive needs: No Hearing needs: No Vision needs: Yes Questionnaire Medicare Wellness Checkup [age] What gender do you identify with?: female During the past 4 weeks, how much have you been bothered by emotional problems such as feeling anxious, depressed, irritable, sad or downhearted, and blue?: not at all During the past 4 weeks, has your physical & emotional health limited your social activities with family, friends, neighbors, or groups?: moderately During the past 4 weeks, how much bodily pain have you generally had?: moderate pain During the past 4 weeks, was someone available to help you if you needed & wanted help?: yes, as much as I wanted During the past 4 weeks, what was the hardest physical activity you could do for at least 2 minutes?: light Can you get to places out of walking distance without help? (For eg., can you travel alone on buses, taxis or drive your car?): Yes Can you go shopping for groceries or clothes without someone's help?: Yes Can you prepare your own meals?: Yes Can you do your housework without help?: Yes Because of any health problems, do you need the help of another person with your personal care needs such as eating, bathing, dressing or getting around the house?: No Can you handle your own money without help?: Yes During the past 4 weeks, how would you rate your health in general?: very good During the past 4 weeks how have things been going for you?: good & bad parts about equal Are you having difficulties driving your car?: no Do you always fasten your seat belt when you are in a car?: yes, usually During past 4 weeks, have you been bothered by the following: never: Falling or dizzy when standing up, Sexual problems?, Trouble eating well?, Teeth or denture problems?, Problems using the telephone? and Tiredness or fatigue? Have you fallen 2 or more times in the past year?: No Are you afraid of falling?: No Are you a smoker?: no During the past 4 weeks, how many drinks of wine, beer, or other alcoholic beverages did you have?: no alcohol at all Do you exercise for about 20 minutes 3 or more times a week?: yes, some of the time Have you been given information to help with the following?: yes: Hazards in your house that might hurt you? and no: Keeping track of your medications? How often do you have trouble taking medicines the way you have been told to take them?: I always take medicine as prescribed How confident are you that you can control & manage most of your health problems?: very confident What is your race?: White PHQ-9 Over the last 2 weeks, how often have you been bothered by any of the following problems? 1. Little interest or pleasure in doing things: not at all 2. Feeling down, depressed, or hopeless: not at all 3. Trouble falling or staying asleep, or sleeping too much: more than half the days 4. Feeling tired or having little energy: not at all 5. Poor appetite or overeating: not at all 6. Feeling bad about yourself - or that you are a failure or have let yourself or your family down: not at all 7. Trouble concentrating on things, such as reading the newspaper or watching television: not at all 8. Moving or speaking so slowly that other people could have noticed. Or the opposite - being so fidgety or restless that you have been moving around a lot more than usual: not at all 9. Thoughts that you would be better off or of hurting yourself in some way: not at all Total score: 2 Depression Screening Interpretation: Positive Depression Screening Done: Yes 48068 - PHQ-9 Billing: Yes Source: Developed by Drs. Michael Harrington, Mary Ann Diop, Niels Greene and colleagues, with an educational leonid from [employer]. Review of Systems Const Denies poor appetite and Denies weakness Eyes Denies no additional complaints ENT Reports Normal hearing present, Denies dizziness, Denies nasal congestion, Denies tinnitus and Denies sore throat Card Denies chest pain, Denies syncope, Denies rapid heart rate and Denies dyspnea Resp Denies cough and Denies dyspnea GI Denies change in stool character, Reports constipation, Denies diarrhea, Denies nausea and Denies vomiting Denies urinary frequency, Denies difficulty voiding and Denies dysuria Neuro Reports Normal hearing present, Denies confusion, Denies dizziness, Denies syncope and Denies weakness Psych Denies confusion Physical Exam Vital Signs: Last Vital Signs Temp 97.5 F 10/12/25 11:17 Pulse 90 10/12/25 11:17 BP 112/60 10/12/25 11:17 Pulse Ox 97 10/12/25 11:17 Oxygen Delivery Method Room Air 10/12/25 11:17 BMI result Body Mass Index 30.5 Const General: No confusion Orientation/consciousness: No confusion HEENT Head: Yes normocephalic Ears: external ears normal and TM's normal bilaterally Face and sinus: Yes normal facial exam Mouth: moist mucous membranes Throat: Yes tonsils normal Eyes Conjunctivae: conjunctivae normal Pupils: Equal, round and reactive pupils present and Pupil accommodation reflex normal Direct Ophthalmoscopy: normal light reflex Neck Neck: No lymphadenopathy Thyroid: Thyroid normal Chest Chest palpation & inspection: normal inspection of the chest Resp Effort & Inspection: normal respiratory effort and no audible wheezes Auscultation: clear to auscultation bilaterally, no crackles, no wheezes and lung sounds not diminished Cardio Rate: regular rate Rhythm: regular rhythm Peripheral pulses: radial pulses present and dorsalis pedis present GI Palpation (GI): no masses Auscultation: normal bowel sounds and normoactive bowel sounds Rectal Exam - Female: deferred Skin General skin exam: no rashes or lesions noted Rashes: no rashes Neuro General: No confusion Cranial nerves: Yes Equal, round and reactive pupils present and Yes Normal hearing present Cognition (Neuro): normal cognition Gait exam (Neuro): Normal gait present Motor exam (neuro): 5/5 motor strength present throughout Deep tendon reflexes (DTR's): Right brachioradialis reflex intensity grade: 2+, Left brachioradialis reflex intensity grade: 2+, Right patellar reflex intensity grade: 2+ and Left patellar reflex intensity grade: 2+ Extrem General: No edema Assessment & Plan Assessment & Plan (1) Medicare annual wellness visit, subsequent: Code(s): Z00.00 - Encounter for general adult medical examination without abnormal findings Plan: Patient is advised to eat healthy, keep well hydrated, keep active and have adequate sleep. (2) Type 2 diabetes mellitus with hyperglycemia: Code(s): E11.65 - Type 2 diabetes mellitus with hyperglycemia Qualifiers: Diabetes mellitus custodial insulin use: without industrial aerial installer use Qualified Code(s): E11.65 - Type 2 diabetes mellitus with hyperglycemia Plan: Decrease the amount of carbohydrate intake, pasta, bread, rice and potatoes are all sugar and that is aside from all the sweet stuff, remember that fruits are good but they are Sweet also. Hemoglobin A1c goal of less than 7.0. Patient on Trulicity at 1.5 mg once a week Jardiance at 10 mg once a day metformin a 1000 mg twice a day (3) Hypertension: Comment: Stress 2013- Code(s): I10 - Essential (primary) hypertension Qualifiers: Hypertension type: essential hypertension Qualified Code(s): I10 - Essential (primary) hypertension Plan: Continue with blood pressure medication. Decrease salt intake and exercise on ramipril 10 mg once a day hydrochlorothiazide 25 mg once a day amlodipine 5 mg once a day (4) Hypercholesterolemia: Code(s): E78.00 - Pure hypercholesterolemia, unspecified Plan: Avoid fried foods, chicken skin, eggs, butter margarine, pastries and meat. Be it pork or beef they have a lot of cholesterol LDL goal of less than 100 on atorvastatin 10 mg once a day triglyceride of less than 150 (5) Obesity (BMI 30-39.9): Code(s): E66.9 - Obesity, unspecified Plan: Diet and exercise (6) GERD (gastroesophageal reflux disease): Code(s): K21.9 - Gastro-esophageal reflux disease without esophagitis Qualifiers: Esophagitis presence: without esophagitis Qualified Code(s): K21.9 - Gastro-esophageal reflux disease without esophagitis Plan: Avoid the foods that causes that usually spicy foods, tomato products, juices, coffee, soda and foods that your sensitive to. After eating do not lie down, allow 3-4 hours before in lie down. And keep the head of bed above 30 degrees to avoid the acid from going up. (7) Osteoarthritis of left knee: Code(s): M17.12 - Unilateral primary osteoarthritis, left knee Plan: Patient has just seen Orthopedics and had left injection of Durolane (8) RUQ abdominal pain: Code(s): R10.11 - Right upper quadrant pain Plan History of Present Illness The patient is a 75-year-old female presenting for an annual wellness visit. Her medical history is significant for basal cell carcinoma, hypertension, hyperc holesterolemia, GERD, type 2 diabetes mellitus, and osteopenia. The patient reports new onset side pain since the end of July or beginning of August, which she attributes to pulling bushes. The pain is worse after walking or activity and is particularly sore at night, but she denies any specific injury or fall. She has been taking meloxicam, though she reports it does not significantly help the side pain. For her known left knee osteoarthritis, the patient was seen by orthopedics and recently received a Duralynine injection. She states the injection was very painful and her knee was bothered for about two weeks, with persistent soreness remaining. Her chronic conditions are managed with multiple medications, including Trulicity 1.5 mg weekly, Jardiance 10 mg daily, and metformin 1000 mg twice daily for diabetes. For hypertension, she takes ramipril 10 mg, hydrochlorothiazide 25 mg, and amlodipine 5 mg daily. She is also on omeprazole for GERD, atorvastatin for hypercholesterolemia, and a weekly medication for osteopenia. The patient admits to sometimes forgetting her medications, although her recent lab work was noted to be good. Health maintenance includes an up-to-date mammogram, a colonoscopy in 2022, and a bone density scan in April 2024. She recently received a shingles vaccine, which caused some muscle aches that have since resolved. She reports a known allergy to penicillin. Health Maintenance The patient is up-to-date on mammogram, colonoscopy, and bone density screening. Continue current management for GERD with omeprazole and for osteopenia with weekly alendronate. For her intermittent dysphagia, the patient was advised on safe eating habits, such as cutting food small and drinking water, and was instructed to follow up if symptoms worsen. The patient was advised to avoid heavy lifting to prevent exacerbating her side pain. Plan to follow up in 3 months pending results of the abdominal ultrasound. Social History - Alcohol use: Denies drinking alcohol. - Tobacco use: Denies ever smoking cigarettes. - Functional status: The patient is active, cleans her own house, and performs home exercises. - She reports carrying laundry and grocery bags, which causes her side pain. - The patient denies any recent falls. Review of Systems - General: Denies fevers. - Cardiovascular: Denies chest heaviness or waking up short of breath. - Gastrointestinal: Reports occasional morning nausea that improves after eating. - Reports intermittent dysphagia, particularly with bread, which has not worsened. - Denies heartburn. - Reports irregular bowel habits, alternating between 2-3 days of no bowel movements and subsequent episodes of loose stools, a pattern that has persisted for years. - Denies blood in stool. - Genitourinary: Reports occasional nocturia around 3 a.m. if she drinks milk before bed, but otherwise sleeps through the night. - Musculoskeletal: Reports persistent soreness in the left knee. - Reports side pain that began after physical exertion and worsens with activity. - Neurological: Denies passing out or dizziness. - ENT: Reports good hearing. - Psychiatric: Reports occasional difficulty falling asleep. Physical Exam General: Cooperative, healthy appearing, comfortable, no acute distress and well developed Orientation: Patient oriented x3 Limitations: No limitations Head: Normal to inspection Ears: Hearing grossly normal bilaterally Nose: Normal external nose present Face and sinus: Normal facial exam Eyes: Appearance normal, both eyes and all related structures Neck: Normal visual inspection and Yes full ROM Respiratory: Normal respiratory effort and able to speak in complete sentences. Clear to auscultation bilaterally Cardiovascular: Regular rate and rhythm. Normal S1 and S2 GI: Normal to inspection. Soft to palpation and nontender Skin: No rashes or lesions noted Neuro: Patient oriented x3 Extremities: Normal to inspection, but patient reports soreness in the left knee and side, possibly due to muscle strain. No significant pain noted during examination. Results - Labs (August): - Complete blood count: Normal, no anemia. - Basic metabolic panel: Normal electrolytes and renal function. - Hemoglobin A1c: 6.4%. - Comprehensive metabolic panel: Liver numbers are good. - Lipid panel: LDL 101 mg/dL, Triglycerides 84 mg/dL. - Urinalysis: Negative for protein. - Thyroid test (November 2024): Normal. - Screenings: - Mammogram: Negative. - Bone density scan (April 2024): Confirmed osteopenia. - Colonoscopy (2022): Findings noted as abnormal. Plan Patient was informed and verbally consented to the use of an ambient scribe for clinic note documentation during this visit. 1. Myalgia The patient's side pain is likely muscular, initiated after pulling bushes. A CT scan had been scheduled, but the patient wishes to cancel it due to aversion to the oral contrast. An abdominal ultrasound will be ordered instead to evaluate the area, including the gallbladder and kidneys. 2. Type 2 Diabetes Mellitus The patient's diabetes is well-controlled with a hemoglobin A1c of 6.4%, which is below the goal of 7.0%. Continue current medication regimen of Trulicity 1.5 mg weekly, Jardiance 10 mg daily, and metformin 1000 mg twice daily. The patient was counseled regarding occasional nonadherence, but her glycemic control remains good. 3. Hypertension The patient's blood pressure is well-controlled on her current regimen. Continue ramipril 10 mg daily, hydrochlorothiazide 25 mg daily, and amlodipine 5 mg daily. 4. Hypercholesterolemia The patient's LDL is 101 mg/dL, which is slightly above the goal of less than 100 mg/dL. Her triglycerides are well-controlled at 84 mg/dL. Continue atorvastatin 10 mg daily and reinforce dietary modifications. 5. Left Knee Osteoarthritis The patient has persistent soreness in her left knee despite a recent Duralynine injection by orthopedics. Her kidney function is normal, so she can continue using meloxicam as needed for pain. Discussion Notes I reviewed the patient's current health status and recent lab results. We discussed her chronic conditions, including diabetes, hypertension, and hypercholesterolemia, which are stable on her current medication regimen. We discussed her new onset side pain, which appears to be muscular in origin. I had initially considered a CT scan to rule out other causes, but the patient expressed a strong aversion to drinking the oral contrast. We agreed to cancel the CT scan and proceed with an abdominal ultrasound as an alternative, which can evaluate the gallbladder and kidneys. I advised her to continue her current medications, reinforced safe eating practices for her dysphagia, and recommended she avoid heavy lifting, which exacerbates her side pain. A follow-up visit is scheduled in three months to review the results of the ultrasound and reassess her symptoms. Patient Instructions - Continue all your current medications for diabetes, high blood pressure, cholesterol, and stomach protection as prescribed. - We will cancel the scheduled CAT scan. - Instead, we will schedule an ultrasound of your abdomen to investigate your side pain. - You can continue to take meloxicam for your knee and side pain, as your kidney function is good. - To help with occasional swallowing difficulty, be sure to cut your food into small pieces, chew thoroughly, and drink plenty of water with meals, especially with dry foods like bread. - Avoid heavy lifting, such as carrying laundry baskets or heavy grocery bags, as this can make your side pain worse. - Please schedule a follow-up appointment in 3 months to discuss the results of your ultrasound and check on your progress. Orders: Orders US abdomen complete Today R10.11 - Right upper quadrant pain, R79.89 - Other specified abnormal findings of blood chemistry Medications: Refilled meloxicam 15 mg PO DAILY 90 tabs 3RF E11.65 - Type 2 diabetes mellitus with hyperglycemia Quality Reporting (2019) Depression/Bipolar (159/160/161/177) PHQ-9: Total score: 2 Coding Level of Care Code Medicare Subsequent (G0439) Diagnoses Medicare annual wellness visit, subsequent Z00.00 Type 2 diabetes mellitus with hyperglycemia, without long-term current use of insulin E11.65 Diabetes mellitus industrial aerial installer insulin use: without industrial aerial installer use Essential hypertension I10 Hypertension type: essential hypertension Hypercholesterolemia E78.00 Obesity (BMI 30-39.9) E66.9 Gastroesophageal reflux disease without esophagitis K21.9 Esophagitis presence: without esophagitis Osteoarthritis of left knee M17.12 RUQ abdominal pain R10.11 Additional Codes PHQ-9 - 60552 - PHQ-9 Billing: Yes ([id number])
[2025-10-12 11:17] VITALS: BP 112/60; PULSE 90; TEMP 36.4; O2SAT 97; BMI 30.5
--- OUTSIDE RECORDS SUMMARY | 2025-10-12 13:20 | XMS_ITS | Clinical Summary ---
Author Organization [facility] Address [address] [place], [place] [id number] Phone Care Team Providers Care Health Sanitarian Name Role Phone Tarun Aragon MD Primary Care Provider [phone] Allergies No known active allergies Medications amLODIPine [...] on patient's age to complete this topic IPV VACCINES Aged Out No longer eligi ble based on patient's age to complete this topic MENINGOCOCCAL VACCINES (ACWY) Aged Out No longer eligible based on patient's age to complete this topic MENINGOCOCCAL VACCINES (B) Aged Out N o longer eligible based on patient's age to complete this topic Medical Devices Not on file Insurance MEDICARE PART A & B [facility] MEDICARE SUPPLEMENT [facility] Address: [address] [address] MEDICARE PART A & B [facility] MEDICARE SUPPLEMENT [facility] Address: [address] [address] MEDICARE PART A & B FOR LIFE MEDICARE SUPPLEMENT MEDICARE PART A & B FOR LIFE MEDICARE SUPPLEMENT MEDICARE PART A & B FOR LIFE MEDICARE SUPPLEMENT [facility] Address: [address] [address] MEDICARE PART A & B FOR LIFE MEDICARE SUPPLEMENT [facility] Address: [address] [address] MEDICARE PART A & B FOR LIFE MEDICARE SUPPLEMENT [facility] Address: [address] [address] MEDICARE PART A & B FOR LIFE MEDICARE SUPPLEMENT [facility] Address: [address] [place] [id number] MEDICARE PART A & B FOR LIFE MEDICARE SUPPLEMENT [facility] Address: [address] [address] Care Teams Health Sanitarian Relationship Specialty Start Date End Date Tarun Aragon MD [address] [place] [id number] PCP - General Internal Medicine 08/19/22 Additional Source Comments The information contained in this document represents components of the legal health record. It is not the complete legal health record.[facility]
--- OUTSIDE RECORDS SUMMARY | 2025-10-12 13:20 | XMS_ITS ---
Author Organization Unknown ENCOUNTERS Encounter Performer Location Date Diagnosis Diagnosis Status Emergency [facility] [address] [place] [address] [id number] [place] Pre Admit Generic ED Physician [facility] [address] [place] [address] [id number] Emergency [facility] [address] [place] [address] [id number] [place] Pre Admit Generic ED Physician [facility] [address] [place] [address] [id number] Pre Admit [facility] [address] [place] [address] [id number] Outpatient [facility] [address] [place] [address] [id number] [place] Emergency [facility] [address] [place] [address] [id number] [place] *Note: Encounters from your own facility or health system may be excluded. Allergies, Adverse Reactions, Alerts Allergen Type Severity Identification Date penicillin V drug allergy [id number] Medications Name Date Quantity Days Supplied GPI Number
== END 2025-10-12 12:17 | disposition home or self-care (01) ==
LOC: HO.HMCH 11:11
PROVIDERS: PCP Internal Medicine; Visit Provider Internal Medicine
DX: Z00.00 Encounter for general adult medical examination without abnormal findings (principal); E11.65 Type 2 diabetes mellitus with hyperglycemia; I10 Essential (primary) hypertension; E78.00 Pure hypercholesterolemia, unspecified; E66.9 Obesity, unspecified; K21.9 Gastro-esophageal reflux disease without esophagitis; M17.12 Unilateral primary osteoarthritis, left knee; R10.11 Right upper quadrant pain

== ENCOUNTER → 2025-10-12 11:10 | Outpatient (BNVA) | payer MEDICARE, OTHER, SELFPAY | PROVIDERS: PCP Internal Medicine; Visit Provider Internal Medicine | DX: Z00.00 Encounter for general adult medical examination without abnormal findings (principal); E11.65 Type 2 diabetes mellitus with hyperglycemia; I10 Essential (primary) hypertension; E78.00 Pure hypercholesterolemia, unspecified; E66.9 Obesity, unspecified; K21.9 Gastro-esophageal reflux disease without esophagitis; M17.12 Unilateral primary osteoarthritis, left knee; R10.11 Right upper quadrant pain; M79.10 Myalgia, unspecified site; R79.89 Other specified abnormal findings of blood chemistry; Z68.30 Body mass index [BMI] 30.0-30.9, adult | CPT/HCPCS: 96127 ==

== ENCOUNTER 2025-11-10 11:53 | Outpatient (REF) | payer MEDICARE, OTHER, SELFPAY ==
--- NOTE | ~2025-11-10 | US_ITS ---
EXAMINATION: US ABDOMEN HISTORY: R79.89 - Other specified abnormal findings of blood chemistry TECHNIQUE: Real-time grayscale ultrasound imaging of the abdomen was performed and images were reviewed. COMPARISON: Correlation is made with the upper abdominal images from an unenhanced chest CT dated 07/24/2024. FINDINGS: Liver: The liver is normal in size. The liver demonstrates increased echotexture, consistent with steatosis. No focal mass or intrahepatic biliary ductal dilatation is identified. There is normal hepatopedal flow in the portal vein. Gallbladder and biliary tree: The gallbladder is unremarkable, without evidence of calculi, wall thickening, or pericholecystic fluid. There is no sonographic Hare sign. The common bile duct is normal in caliber measuring 3 mm. Kidneys: The right kidney measures 9.1 cm in length and demonstrates a 7 mm calculus in the interpolar region. The left kidney measures 9.7 cm in length. There is no hydronephrosis. Pancreas: There is an 8 mm calcification of the pancreatic tail. The remainder the pancreas is obscured by bowel gas. Spleen: The spleen is normal in size and contour, measuring 7.9 cm in length. Abdominal aorta and inferior vena cava: The visualized portions of the abdominal aorta and inferior vena cava are normal in caliber. There is no free fluid in the abdomen. US/US abdomen complete IMPRESSION: 1. Hepatic steatosis. 2. 7 mm right renal calculus. Electronically signed by: Michael Mckeon MD 11/10/2025 12:57 PM [facility]
== END 2025-11-10 11:54 | disposition home or self-care (01) ==
LOC: HO.US 11:53
PROVIDERS: PCP Internal Medicine; Visit Provider Internal Medicine
DX: R79.89 Other specified abnormal findings of blood chemistry (principal); R10.11 Right upper quadrant pain
CPT/HCPCS: 76700

== ENCOUNTER → 2025-11-10 11:55 | Outpatient (BNV) | payer MEDICARE, OTHER, SELFPAY | PROVIDERS: PCP Internal Medicine; Visit Provider Radiology Diagnostic Radiology | DX: K76.0 Fatty (change of) liver, not elsewhere classified (principal); N20.0 Calculus of kidney | CPT/HCPCS: 76700 ==